=== PATIENT | female | born 1940 | race Caucasian/White ===

== ENCOUNTER → 2016-06-07 | Outpatient (CLI) | payer OTHER, MEDICARE ==
[~2016-06-07] MED LIST: ALBU1AER9 INH; ASPEC325 PO; CLB/200 PO; DOCU100C PO; FLOVENT INHALER INH; FRRG PO; GLUC500C4 PO; LINIGEL19 TOP; LORA0.5T12 PO; LOSA100T33 PO; MRLP17X PO; OMEGCAP2 PO; [UNRECOGNIZED DRUG - CODE] TOP
[2016-06-07 14:23] LABS: BLOOD UREA NITROGEN 19 mg/dl (7-18); BUN/CREATININE RATIO 21.6 (10-20); CALCIUM 9.1 mg/dl (8.5-10.1); CARBON DIOXIDE 30 mmol/L (21-32); CHLORIDE 99 mmol/L (98-107); CREATININE 0.86 mg/dl (0.60-1.20); GLUCOSE 102 mg/dl (70-99); POTASSIUM 3.9 mmol/L (3.5-5.1); SODIUM 133 mmol/L (136-145); TRIGLYCERIDES 122 mg/dl (0-150); VERY LOW DENSITY LIPOPROT CALC 24 mg/dl
[2016-06-07 14:27] LABS: CHOLESTEROL 251 mg/dl (0-200); CHOLESTEROL/HDL RATIO 2.9; HDL CHOLESTEROL 87 mg/dl; LDL CHOLESTEROL CALCULATED 140 mg/dl
== END | disposition home or self-care (01) ==
LOC: C.LABPVFM 08:26
PROVIDERS: ATTEND Nurse Practitioner
DX: E78.00 Pure hypercholesterolemia, unspecified (principal); I10 Essential (primary) hypertension

== ENCOUNTER → 2016-09-28 | Outpatient (CLI) | payer OTHER, MEDICARE ==
[~2016-09-28] MED LIST changes: +LOSA100T26 PO; -LOSA100T33 PO
--- NOTE | 2016-09-28 15:53 | DIAGNOSTIC IMAGING REPORT ---
STERNUM MIN 2 VIEWS CLINICAL HISTORY: 75 years-old Female presenting with STERNAL PAIN at xiphoid, no trauma, sensation of enlarging. TECHNIQUE: Frontal and oblique views of the sternum were obtained. COMPARISON: Correlation made to plain radiographs of the chest from 01/17/2016. FINDINGS: Sternomanubrial and sternoxiphoid articulations normal. No evidence of osseous destruction. No evidence of fracture. No gross soft tissue abnormality allowing for technique. Atherosclerosis of aortic arch. Grossly clear lungs and pleural spaces. IMPRESSION: No gross abnormality of the sternum. If there is clinical concern for a superficial lesion, ultrasound could be considered for better evaluation of the soft tissues. Electronically signed by: Raymond Wall M.D. 09/28/2016 3:51 PM Dictated Date/Time: 09/28/2016 3:49 PM
== END ==
LOC: C.LABPVFM 15:24
PROVIDERS: ATTEND Nurse Practitioner
DX: R07.89 Other chest pain (principal)

== ENCOUNTER → 2017-01-11 | Outpatient (CLI) | payer OTHER, MEDICARE ==
[~2017-01-11] MED LIST changes: -LOSA100T26 PO; +LOSA100T33 PO
[2017-01-11 18:25] LABS: BLOOD UREA NITROGEN 25 mg/dl (7-18); BUN/CREATININE RATIO 24.9 (10-20); CALCIUM 8.9 mg/dl (8.5-10.1); CARBON DIOXIDE 30 mmol/L (21-32); CHLORIDE 94 mmol/L (98-107); GLUCOSE 115 mg/dl (70-99); POTASSIUM 3.8 mmol/L (3.5-5.1); SODIUM 131 mmol/L (136-145)
== END | disposition home or self-care (01) ==
LOC: C.LABPVFM 13:43
PROVIDERS: ATTEND Nurse Practitioner Family
DX: Z01.818 Encounter for other preprocedural examination (principal)

== ENCOUNTER → 2017-06-24 | Outpatient (CLI) | payer OTHER, MEDICARE ==
--- NOTE | 2017-06-24 13:20 | DIAGNOSTIC IMAGING REPORT ---
PARASTERNAL SOFT TISSUE ULTRASOUND CLINICAL HISTORY: M89.9 Mass of sternum [id number] COMPARISON STUDY: Conventional radiographic study dated 09/28/2016 FINDINGS: There is a 5 mm intradermal cyst within the anterior soft tissues at the midsternal level. This likely represents a sebaceous cyst. No additional soft tissue masses were visualized. If there is clinical concern over the presence of an osseous lesion, a CT scan would be recommended in follow-up. IMPRESSION: 5 mm midline intradermal cyst at the mid sternal level. This likely represents a sebaceous cyst. Electronically signed by: Adi Enriquez M.D. 06/24/2017 1:18 PM Dictated Date/Time: 06/24/2017 1:15 PM
== END | disposition home or self-care (01) ==
LOC: C.ULTR 12:50
PROVIDERS: ATTEND Nurse Practitioner
DX: M89.9 Disorder of bone, unspecified (principal)

== ENCOUNTER 2021-06-04 16:36 | Inpatient (IN) ==
[2021-06-04] MEDS ORDERED: fentaNYL citrate 100 MCG/2 ML VIAL IV STA (16:42)
[2021-06-04] MEDS ORDERED: SODIUM CHLORIDE 0.9% 1000ML 500 ML IV ONE (16:42)
[2021-06-04] MEDS ORDERED: ONDANSETRON INJ 2 MG/ML 2 ML VIAL IV STA ×2 (16:42→19:09)
--- NOTE | 2021-06-04 16:45 | Emergency Department Note ---
Impression & Plan Small bowel obstruction, Hypertensive urgency ED Provider Note Name: HORACE MARTIN Age: 80 Sex: F Arrives Via: Ambulance Informant: Patient, EMS, family ED Provider: Ian George MD Chief Complaint: Abdominal pain Impression: As per impressions above Medical Decision Making: Is an 80-year-old female with a history of hypertension, dyslipidemia, type 2 diabetes arrives for evaluation of sudden onset epigastric pain with some nausea. On evaluation she has some tenderness palpation of the epigastrium and some mild diffuse tenderness palpation. EKG is unremarkable and she was given small dose of fentanyl with improvement in her pain. She was sent for CT which reveals a small bowel obstruction concerning for possible closed-loop obstruction. I discussed the findings with general surgery who will monitor her but asked that hospitalist get involved. Patient was discussed with the hospitalist service will take over management. I did give a dose of labetalol for her persistent hypertensive situation despite pain control with several rounds of narcotics. She was given some Ativan prior to NG tube for comfort. I will note I was giving her small doses of narcotics given she states she gets severely nauseous from them in the past and did get somewhat nauseous after the third dose of medicines. Patient does not have peritonitis and she is not in extremis. Her vital signs are somewhat hypertensive but she is not tachycardic. White count is normal at this time. There is no clear evidence of ischemia currently. Hospitalists and evaluate further Prior Medical Record and Triage/Nursing Notes reviewed by Me Additional history obtained from chart & family Differentials:Cholecystitis, pancreatitis, aortic dissection/rupture, ACS, esophageal issue, gastritis, bowel obstruction, ischemic gut, perforation, d iverticulitis, amongst other pathology considered. Vital Signs: reviewed and remarkable for hypertension Interventions: Fentanyl IV, Dilaudid 0.5 mg IV x2, Ativan 0.5 mg IV, Zofran 4 mg IV, Labs:Reviewed and remarkable for no significant abnormalities Imaging:CT abdomen pelvis read by radiology reveals small bowel obstruction concern for closed-loop obstruction KUB read by radiologist reveals NG tube into the stomach EKG:Per My Interpretation: Indication epigastric pain: NSR 73 bpm, qtc 429. No Ectopy. No Ischemia. Compared to EKG , no significant changes. Cardiac/Tele Monitoring: Cardiac Monitoring: An Order was placed for continuous cardiac monitoring. The monitor shows a rate of 70 with a normal sinus rhythm. Consults:Dr Rj Boyd, Dr Glenn OLSON Hospitalist Plan: Disposition:Hospitalization. Condition: Good History of Present Illness:80-year-old female arrives for evaluation abdominal pain. Patient notes she developed sudden onset epigastric abdominal pain around 1230 this afternoon. Pain radiates slightly up to the middle of her chest. Associated with some mild nausea. She denies any falls, trauma, injuries. She denies any current chest pain or shortness of breath. She has no radiation of pain to the lower abdomen or to her back. She has noticed that history of similar symptoms. This occurred slightly after eating lunch. She had no medications prior to arrival. Movement seems to make it worse and rest seems to make it better. She is on no recent antibiotics. She has a history of a total abdominal hysterectomy as far she knows she still has her gallbladder and her appendix. He is on no blood thinners. She does note a history of a head bleed about 7 or 8 months ago due to hypertension for which she was in [facility] for short amount of time. ROS: See above HPI for pertinent positives & negatives. A total of 10 systems reviewed and were otherwise negative. Past Medical History:See Below Past Surgical History:See Below Family History:See Below Social History:See Below Home Medications:See Below Allergies:Adhesive, latex, lisinopril Vitals:Blood Pressure: 188/97, Pulse 74, RR 15, T 36.8C, O2 97% on RA Physical Exam: GENERAL: Patient is uncomfortable appearing and in moderate distress. EYES: No scleral icterus, unremarkable pupils. ENT: Mucous membranes moist, no nasal congestion. NECK: No masses appreciated, nomeningismus, trachea is midline. RESPIRATORY: No dyspnea. Clear to auscultation and equal bilaterally. No wheeze, no rhonchi. CARDIOVASCULAR: Regular rate and rhythm.No murmurs, rubs, gallops appreciated. GASTROINTESTINAL: Mild epigastric tenderness palpation with some mild diffuse abdominal tenderness to palpation. Normal bowel sounds no masses appreciated. BACK: No midline tenderness, no CVA tenderness EXTREMITIES: Normal motion all extremities, no cyanosis, no edema. NEUROLOGIC: Alert and oriented, no acute motor or sensory deficits, no focal weakness, cranial nerves grossly intact. SKIN: No rash, no jaundice, no diaphoresis. PSYCH: Appropriate GCS: 15 ED Course: Times/Reassessments: Patient gradually improving though still can having some diffuse upper abdominal discomfort. NG tube placed with over 500 mL output. Persistent hypertensive despite pain was improving thus labetalol given. Ian George MD Past Med/Surg History Medical History Asthma Diabetes History of basal cell carcinoma History of melanoma History of squamous cell carcinoma Hypertension Left knee DJD Osteoarthritis Surgical History History of basal cell carcinoma (BCC) excision History of colonoscopy History of melanoma excision History of right knee joint replacement History of squamous cell carcinoma excision History of tonsillectomy History of total abdominal hysterectomy and bilateral salpingo-oophorectomy History of tubal ligation Status post right knee replacement Family History Father Prostate cancer Other No family history of adverse response to anesthesia Denies family history of Ovarian cancer Diabetes Dyslipidemia Myocardial infarction Breast cancer COPD (chronic obstructive pulmonary disease) Colorectal cancer Social History Smoking Status: Never smoker Second Hand Exposure: No; Hx Alcohol Use: No Hx Substance Use: No Preferred Language: Thai Communication Ability: Effective Hearing Ability: Normal Supercalender Operator Required: No Beliefs That Will Affect Care: None marital status: Current Living Situation: Spouse current occupational status: retired Feels Safe at Home: Yes Childhood Exposure to Second-Hand Smoke: Yes caffeine: Yes during the past year weight has: remained stable Dental Care, Regularly: Yes Seatbelt Use: always Sunscreen Use: Yes Assistive Devices: Walker Allergies Allergies Allergy/AdvReac Type Severity Reaction Status Date / Time adhesive Allergy Unknown rash, Verified 06/04/21 17:23 redness latex Allergy Unknown skin Verified 06/04/21 17:23 redness lisinopril AdvReac Unknown cough Verified 06/04/21 17:23 Home Meds Home Medications Medication Instructions Recorded Confirmed docusate sodium 100 mg capsule 100 mg PO DAILY 12/22/19 06/04/21 (Stool Softener) polyethylene glycol 3350 17 17 g PO HS PRN 12/22/19 06/04/21 gram/dose oral powder (Miralax) metformin 500 mg tablet 500 mg PO BID 01/19/21 06/04/21 amlodipine 5 mg tablet 5 mg PO QAM 06/04/21 06/04/21 gabapentin 100 mg capsule 100 mg PO QAM 06/04/21 06/04/21 losartan 50 mg-hydrochlorothiazide 1 tab PO BID 06/04/21 06/04/21 12.5 mg tablet metoprolol succinate 25 mg 25 mg PO QAM 06/04/21 06/04/21 tablet,extended release 24 hr Previous Rx's Medication Instructions Recorded amoxicillin 500 mg tablet 2,000 mg PO ONCE #4 tab 05/16/20 trazodone 50 mg tablet 25 mg PO HS #30 tab 06/09/20 meloxicam 15 mg tablet 15 mg PO QAM #90 tab 11/28/20 albuterol sulfate 90 mcg/actuation 2 puff INH Q6H PRN #8 gm 01/06/21 aerosol inhaler (ProAir HFA) fluticasone propionate 110 1 puff INH BID PRN #12 gm 01/06/21 mcg/actuation HFA aerosol inhaler (Flovent HFA) blood sugar diagnostic (OneTouch #100 ea 01/12/21 Ultra Test) blood-glucose meter (OneTouch #1 ea 01/12/21 Verio Meter) lancets (OneTouch UltraSoft #100 ea 01/12/21 Lancets) nitrofurantoin 100 mg PO BID #14 cap 01/12/21 monohydrate/macrocrystals 100 mg capsule (Macrobid) Results & Data (ED) Vital Signs Vital Signs - 24 hr 06/04/21 16:40 06/04/21 18:01 06/04/21 18:30 Temperature 36.8 C Temperature Source Oral Pulse Rate 77 86 74 Respiratory Rate 17 18 15 Respiratory Effort / Characteristics Non-Labored Spontaneous Respiratory Depth Normal Respiratory Pattern Regular Blood Pressure 216/100 H 212/97 H 188/97 H Blood Pressure Mean 138 135 127 Blood Pressure Position Lying Pulse Oximetry 100 98 97 Oxygen Delivery Method Room Air Sepsis Recent Fever Within 48 Hours No Sepsis New/Unexplained Change in Mental Status No Sepsis Action Taken by Nursing No Action Required Laboratory Data Result diagrams: 06/04/21 16:52 06/04/21 16:52 Lab Results 0406/04/21 06/04/21 Range/Units 16:52 16:52 17:04 WBC 5.17 (4.8-10.8) K/uL RBC 4.43 (4.2-5.4) M/uL Hgb 14.3 (12.0-16.0) g/dL POC Hgb 14.6 (12.0-16.0) g/dl Hct 41.8 (37-47) % POC Hct 43 (37-47) % MCV 94.4 (80-100) fL MCH 32.3 (25-34) pg MCHC 34.2 (32-36) g/dL RDW Std Deviation 43.5 (36.4-46.3) fL RDW Coeff of Belkis 12.6 (11.5-14.5) % Plt Count 382 (130-400) K/uL MPV 8.9 (7.4-10.4) fL Immature Gran % (Auto) 0.2 % Neut % (Auto) 67.1 % Lymph % (Auto) 23.2 % [place] % (Auto) 8.9 % Eos % (Auto) 0.2 % Baso % (Auto) 0.4 % Neut # (Auto) 3.47 (1.4-6.5) K/uL Lymph # (Auto) 1.20 (1.2-3.4) K/uL [place] # (Auto) 0.46 (0.11-0.59) K/uL Eos # (Auto) 0.01 (0-0.5) K/uL Baso # (Auto) 0.02 (0-0.2) K/uL Immature Gran # (Auto) 0.01 (0.00-0.02) K/uL POC Sodium 136 (135-144) mmol/L Sodium 136 (136-145) mmol/L POC Potassium 3.6 (3.3-5.0) mmol/L Potassium 3.6 (3.5-5.1) mmol/L POC Chloride 95 L (101-112) mmol/L Chloride 95 L (98-107) mmol/L Carbon Dioxide 31 (21-32) mmol/L POC Total CO2 30 (24-31) mmol/L Anion Gap 10 (3-11) POC Anion Gap 16.0 (16-25) mmol/L POC BUN 19 H (7-18) mg/dl BUN 17 (6-23) mg/dl Creatinine 0.77 (0.6-1.2) mg/dl POC Creatinine 0.7 (0.6-1.3) mg/dl Est Cr Clr Drug Dosing 48.4 ml/min Est GFR ( Amer) 83.3 ml/min Est GFR (Non-Af Amer) 71.9 ml/min BUN/Creatinine Ratio 22.1 H (10-20) Glucose 161 H (70-99(Fasting)) mg/dl POC Glucose (other) 165 H (70-99) mg/dl Calcium 10.7 H (8.5-10.1) mg/dl POC Ioniz Calcium Franko 1.28 (1.12-1.32) mmol/l Total Bilirubin 0.4 (0.2-1.0) mg/dl Direct Bilirubin 0.1 (0-0.2) mg/dl AST 15 (13-39) U/L ALT 13 (7-52) U/L Alkaline Phosphatase 98 (34-104) U/L Troponin I High Sens 4.4 (0-14) pg/ml Total Protein 8.0 (6.0-8.3) gm/dl Albumin 4.7 (3.4-5.0) gm/dl Lipase 19 (11-82) U/L SARS-CoV-2, RNA, NAAT (NEGATIVE) 06/04/21 Range/Units 18:43 WBC (4.8-10.8) K/uL RBC (4.2-5.4) M/uL Hgb (12.0-16.0) g/dL POC Hgb (12.0-16.0) g/dl Hct (37-47) % POC Hct (37-47) % MCV (80-100) fL MCH (25-34) pg MCHC (32-36) g/dL RDW Std Deviation (36.4-46.3) fL RDW Coeff of Belkis (11.5-14.5) % Plt Count (130-400) K/uL MPV (7.4-10.4) fL Immature Gran % (Auto) % Neut % (Auto) % Lymph % (Auto) % [place] % (Auto) % Eos % (Auto) % Baso % (Auto) % Neut # (Auto) (1.4-6.5) K/uL Lymph # (Auto) (1.2-3.4) K/uL [place] # (Auto) (0.11-0.59) K/uL Eos # (Auto) (0-0.5) K/uL Baso # (Auto) (0-0.2) K/uL Immature Gran # (Auto) (0.00-0.02) K/uL POC Sodium (135-144) mmol/L Sodium (136-145) mmol/L POC Potassium (3.3-5.0) mmol/L Potassium (3.5-5.1) mmol/L POC Chloride (101-112) mmol/L Chloride (98-107) mmol/L Carbon Dioxide (21-32) mmol/L POC Total CO2 (24-31) mmol/L Anion Gap (3-11) POC Anion Gap (16-25) mmol/L POC BUN (7-18) mg/dl BUN (6-23) mg/dl Creatinine (0.6-1.2) mg/dl POC Creatinine (0.6-1.3) mg/dl Est Cr Clr Drug Dosing ml/min Est GFR ( Amer) ml/min Est GFR (Non-Af Amer) ml/min BUN/Creatinine Ratio (10-20) Glucose (70-99(Fasting)) mg/dl POC Glucose (other) (70-99) mg/dl Calcium (8.5-10.1) mg/dl POC Ioniz Calcium Franko (1.12-1.32) mmol/l Total Bilirubin (0.2-1.0) mg/dl Direct Bilirubin (0-0.2) mg/dl AST (13-39) U/L ALT (7-52) U/L Alkaline Phosphatase (34-104) U/L Troponin I High Sens (0-14) pg/ml Total Protein (6.0-8.3) gm/dl Albumin (3.4-5.0) gm/dl Lipase (11-82) U/L SARS-CoV-2, RNA, NAAT NEGATIVE (NEGATIVE) Administered Medications Discontinued Medications Fentanyl Citrate (Fentanyl Citrate 100 Mcg/2 Ml Vial) 25 mcg IV NOW STA Stop: 06/04/21 16:43 Last Admin: 06/04/21 17:01 Dose: 25 mcg Documented by: [id number] Hydromorphone HCl (Hydromorphone Inj 0.5 Mg/0.5 Ml Syr) 0.5 mg IV NOW STA Stop: 06/04/21 19:00 Last Admin: 06/04/21 19:02 Dose: 0.5 mg Documented by: [id number] Sodium Chloride (Nss 1000ml) 500 mls @ 999 mls/hr IV .Q31M ONE Stop: 06/04/21 17:12 Last Infusion: 06/04/21 17:38 Dose: 0 mls/hr Documented by: [id number] Admin: 06/04/21 17:05 Dose: 999 mls/hr Documented by: [id number] Ioversol (Optiray 320 100ml) 94 ml IV ONCE ONE Stop: 06/04/21 17:28 Last Admin: 06/04/21 17:30 Dose: 94 ml Documented by: [id number] Labetalol HCl (Labetalol Hcl Iv 5 Mg/Ml 20ml) 10 mg IV NOW STA Stop: 06/04/21 18:11 Last Admin: 06/04/21 18:54 Dose: 10 mg Documented by: [id number] Cosigned by: [id number] Lorazepam (Lorazepam 2 Mg/1 Ml Vial) 0.5 mg IV NOW STA Stop: 06/04/21 17:41 Last Admin: 06/04/21 18:02 Dose: 0.5 mg Documented by: [id number] Ondansetron HCl (Ondansetron Inj 2 Mg/Ml 2 Ml Vial) 4 mg IV NOW STA Stop: 06/04/21 16:43 Last Admin: 06/04/21 17:00 Dose: 4 mg Documented by: [id number] Imaging Data Radiologist's Impression: Abdomen/Pelvis CT 06/04/21 16:42 CT OF THE ABDOMEN AND PELVIS WITH CONTRAST CLINICAL HISTORY: Abdominal pain and nausea. COMPARISON STUDY: None. TECHNIQUE: Following IV administration of 94 mL of Optiray, axial images of the abdomen and pelvis were obtained from the lung bases to the proximal femurs. Images were reviewed in the axial, sagittal, and coronal planes. IV contrast was administered without complication. Automated exposure control was utilized for the study. A dose lowering technique was utilized adhering to the principles of ALARA. CT DOSE: 274.51 mGy.cm FINDINGS: Lung bases are unremarkable. No pneumatosis, free air or portal venous gas is present. Stomach is moderately distended and fluid-filled. Liver, spleen, adrenal glands, kidneys and pancreas are unremarkable. There is no biliary or pancreatic ductal dilatation. No peripancreatic or pericholecystic infiltration is present. There is no hydronephrosis. Moderate plaque of the abdominal aorta is noted. Caliber of the abdominal aorta is normal. Major vasculature is patent. Sigmoid diverticulosis is noted without evidence for acute diverticulitis. The appendix is normal. The mid small bowel is moderately dilated and fluid-filled. Small bowel is decompressed. Note is made of adjacent transition points for several segments of small bowel within the anterior mid abdomen shown on axial image 196 of 371. No small bowel wall thickening is noted. There is mild associated mesenteric stranding. No pneumatosis, free air. Moderate amount stool within the rectum is noted. There is apparent wall thickening of the distal re ctum. This is probably due to underdistention. No suspicious lesion or acute fracture within visualized skeletal structures. IMPRESSION: 1. Findings consistent with a moderate grade small bowel obstruction. Multiple loops of mildly dilated fluid-filled mid small bowel with decompressed distal small bowel. Adjacent transition points for several segments of small bowel. Although not highly suspicious at this time, this configuration could increase risk for a closed loop obstruction and therefore close clinical follow-up is recommended. Moderately distended fluid-filled stomach. Nasogastric tube insertion might be considered. 2. Apparent distal rectal wall thickening. This is likely due to underdistention. A mucosal lesion is considered less likely but cannot be completely excluded. Nonemergent colonoscopy is suggested. ACT 112: Negative or not required by law. Electronically signed by: Flex Alberto M.D. 06/04/2021 5:52 PM Chest X-Ray 06/04/21 18:28 XR chest 1V portable CLINICAL HISTORY: ng tube placement COMPARISON STUDY: Chest radiograph December 11, 2020. FINDINGS: Lung volumes are mildly diminished, unchanged. Lungs are clear. There is no pneumothorax or pleural effusion. Cardiac size is normal. Mediastinal contours are normal. There is no evidence for pulmonary edema. Tip of nasogastric tube is within the body of the stomach. IMPRESSION: Appropriately positioned nasogastric tube. Tip within the body of the stomach. ACT 112: Negative or not required by law. Electronically signed by: Flex Alberto M.D. 06/04/2021 6:56 PM Discharge Plan Visit Data Chief Complaint: Abdominal Pain ED Provider: Ian George Discharge Problem: Small bowel obstruction, Hypertensive urgency Forms Stand Alone Forms: My [facility] [employer] Prescriptions Prescriptions: No Action amoxicillin 500 mg tablet 2,000 mg PO ONCE Qty: 4 RF: 3 trazodone 50 mg tablet 25 mg PO HS Qty: 30 RF: 5 Hold Instructions: not taking meloxicam 15 mg tablet 15 mg PO QAM Qty: 90 RF: 3 Flovent HFA 110 mcg/actuation HFA aerosol inhaler 1 puff INH BID PRN (Reason: wheezing) Qty: 12 RF: 3 albuterol sulfate [ProAir HFA] 90 mcg/actuation HFA aerosol inhaler 2 puff INH Q6H PRN (Reason: shortness of breath or wheezing) Qty: 8 RF: 3 nitrofurantoin monohyd/m-cryst [Macrobid] 100 mg capsule 100 mg PO BID Qty: 14 RF: 0 (DME) OneTouch Ultra Test Strip See Rx Instructions .Route Qty: 100 RF: 5 (DME) blood-glucose meter [OneTouch Verio Meter] Misc See Rx Instructions .Route Qty: 1 RF: 0 (DME) lancets [OneTouch UltraSoft Lancets] Misc See Rx Instructions .Route Qty: 100 RF: 5 metformin 500 mg tablet 500 mg PO BID RF: 0 docusate sodium [Stool Softener] 100 mg Capsule 100 mg PO DAILY RF: 0 polyethylene glycol 3350 [Miralax] 17 gram/dose Powder 17 g PO HS PRN (Reason: Constipation) RF: 0 amlodipine 5 mg tablet 5 mg PO QAM RF: 0 gabapentin 100 mg capsule 100 mg PO QAM RF: 0 metoprolol succinate 25 mg tablet extended release 24 hr 25 mg PO QAM RF: 0 losartan-hydrochlorothiazide 50-12.5 mg tablet 1 tab PO BID RF: 0 Referrals Referrals: Jhony Wolf MD [Primary Care Provider] -
[2021-06-04 17:16] LABS: iSTAT Creatinine 0.7 mg/dl (0.6-1.3); iSTAT Hemoglobin 14.6 g/dl (12.0-16.0); iSTAT Ionized Calcium 1.28 mmol/l (1.12-1.32); iSTAT Potassium 3.6 mmol/L (3.3-5.0)
[2021-06-04 17:18] LABS: Basophils # (auto) 0.02 K/uL (0-0.2); Basophils % (auto) 0.4 %; Eosinophils # (auto) 0.01 K/uL (0-0.5); Eosinophils % (auto) 0.2 %; Hematocrit (blood only) 41.8 % (37-47); Hemoglobin 14.3 g/dL (12.0-16.0); Immature Granulocytes # (auto) 0.01 K/uL (0.00-0.02); Immature Granulocytes % (auto) 0.2 %; Lymphocytes % (auto) 23.2 %; Mean Corpuscular Hemoglobin 32.3 pg (25-34); Mean Corpuscular Hgb Conc 34.2 g/dL (32-36); Mean Corpuscular Volume 94.4 fL (80-100); Mean Platelet Volume 8.9 fL (7.4-10.4); Monocytes # (auto) 0.46 K/uL (0.11-0.59); Monocytes % (auto) 8.9 %; Neutrophils # (auto) 3.47 K/uL (1.4-6.5); Neutrophils % (auto) 67.1 %; Platelet Count 382 K/uL (130-400); RDW Coefficient of Variation 12.6 % (11.5-14.5); RDW Standard Deviation 43.5 fL (36.4-46.3); Red Blood Count 4.43 M/uL (4.2-5.4); White Blood Count 5.17 K/uL (4.8-10.8)
[2021-06-04] MEDS ORDERED: OPTIRAY 320 100ml IV ONE (17:27)
[2021-06-04] MEDS ORDERED: LORazepam 2 MG/1 ML VIAL IV STA (17:40)
[2021-06-04 17:53] LABS: Albumin Level 4.7 gm/dl (3.4-5.0); BUN Creatinine Ratio 22.1 (10-20); Bilirubin Direct 0.1 mg/dl (0-0.2); Bilirubin,Total 0.4 mg/dl (0.2-1.0); Calcium 10.7 mg/dl (8.5-10.1); Creatinine Clr Calc Pharmacy 48.4 ml/min; Est GFR (African American) 83.3 ml/min; Est GFR (Non-African American) 71.9 ml/min; Potassium 3.6 mmol/L (3.5-5.1)
[2021-06-04 17:54] LABS: Troponin I High Sensitivity 4.4 pg/ml (0-14)
--- NOTE | 2021-06-04 17:54 | CT Scan Report ---
CT OF THE ABDOMEN AND PELVIS WITH CONTRAST CLINICAL HISTORY: Abdominal pain and nausea. COMPARISON STUDY: None. TECHNIQUE: Following IV administration of 94 mL of Optiray, axial images of the abdomen and pelvis we re obtained from the lung bases to the proximal femurs. Images were reviewed in the axial, sagittal, and coronal planes. IV contrast was administered without complication. Automated exposure control wa s utilized for the study. A dose lowering technique was utilized adhering to the principles of ALARA . CT DOSE: 274.51 mGy.cm FINDINGS: Lung bases are unremarkable. No pneumatosis, free air or portal venous gas is present. Stom ach is moderately distended and fluid-filled. Liver, spleen, adrenal glands, kidneys and pancreas are unremarkable. There is no biliary or pancreatic ductal dilatation. No peripancreatic or pericholecys tic infiltration is present. There is no hydronephrosis. Moderate plaque of the abdominal aorta is no jose. Caliber of the abdominal aorta is normal. Major vasculature is patent. Sigmoid diverticulosis is noted without evidence for acute diverticulitis. The appendix is normal. The mid small bowel is mode rately dilated and fluid-filled. Small bowel is decompressed. Note is made of adjacent transition poi nts for several segments of small bowel within the anterior mid abdomen shown on axial image 196 of 3 71. No small bowel wall thickening is noted. There is mild associated mesenteric stranding. No pneuma tosis, free air. Moderate amount stool within the rectum is noted. There is apparent wall thickening of the distal rectum. This is probably due to underdistention. No suspicious lesion or acute fracture within visualized skeletal structures. IMPRESSION: 1. Findings consistent with a moderate grade small bowel obstruction. Multiple loops of mildly dilate d fluid-filled mid small bowel with decompressed distal small bowel. Adjacent transition points for s everal segments of small bowel. Although not highly suspicious at this time, this configuration could increase risk for a closed loop obstruction and therefore close clinical follow-up is recommended. M oderately distended fluid-filled stomach. Nasogastric tube insertion might be considered. 2. Apparent distal rectal wall thickening. This is likely due to underdistention. A mucosal lesion is considered less likely but cannot be completely excluded. Nonemergent colonoscopy is suggested. ACT 112: Negative or not required by law. Electronically signed by: Flex Alberto M.D. 06/04/2021 5:52 PM
[2021-06-04] MEDS ORDERED: LABETALOL HCL IV 5 MG/ML 20ML IV STA (18:10)
--- NOTE | 2021-06-04 18:57 | XRay Report ---
XR chest 1V portable CLINICAL HISTORY: ng tube placement COMPARISON STUDY: Chest radiograph December 11, 2020. FINDINGS: Lung volumes are mildly diminished, unchanged. Lungs are clear. There is no pneumothorax or pleural effusion. Cardiac size is normal. Mediastinal contours are normal. There is no evidence for pulmonary edema. Tip of nasogastric tube is within the body of the stomach. IMPRESSION: Appropriately positioned nasogastric tube. Tip within the body of the stomach. ACT 112: Negative or not required by law. Electronically signed by: Flex Alberto M.D. 06/04/2021 6:56 PM
[2021-06-04] MEDS ORDERED: HYDROmorphone INJ 0.5 MG/0.5 ML SYR IV STA (18:59)
--- NOTE | 2021-06-04 19:33 | History & Physical Report ---
Date of Service June 04, 2021 Assessment & Plan (1) Small bowel obstruction: Plan: SBO obstruction with past abdominal surgery being hysterectomy- possibly related to adhesions - Continue with NGT to LIWS - IV hydration with D5LR 110 ml/hr - Pain control - NPO - KUB daily - consider contrasted study within 24-48 hours with follow through (2) Diabetes mellitus: Plan: Hold Metformin- transition to insulin sliding scale without carb coverage while NPO (3) Hypertension: Plan: Will adjust her PO Meds to IV as able with SBP <180, <90 - Metoprolol 5mg IV q6 hours with hold parameters - Hydralazine 5 mg IV q3 hrs prn - can adjust as warranted (4) Hypercholesterolemia: Plan: Hold statin (5) Asthma: Plan: Continue SONAM (6) Anxiety: Plan: Follow may have PRN (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 - Arthritis as well - Will need to hold her gabapentin, meloxicam, and trazodone - Follow for any withdraw from above History of Present Illness Primary Care Provider: Jhony Wolf MD 80 YO female with medical history of: HLD, HTN, DMII, Arthralgia, 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 Patient comes to the EMD today via EMS for acute onset of abdominal pain followed by nausea and vomiting. The onset of the pain was right after lunch per the at around 1300 to worsen. He states that she had abdominal pain prior to eating noting around 1230. The patient ate breakfast this morning without any pain or n/v, she then went to [employer] and came home and had pizza and salad. In the EMD she had ano ther episode of vomiting. She had routine labs performed to include HScTNI, abdomen CT scan and chest Xray. Her abdominal CT scan was notable for reported moderate grade SBO, dilated loops of fluid filled bowel and decompressed distal small bowel. Also possibility of closed loop obstruction and distended stomach. Surgery was consulted by the EMD and was present in room with my evaluation. The patient had an NGT placed to suction and Radiologically confirmed. Hospitalist was consulted for admission. Patient was somnolent for exam following Dilaudid administration and Ativan administration for NGT placement and abdominal pain. She was placed on oxygen. She reportedly has no major neurological deficits but remains with left sided visual deficits from her stroke in 12/01. Her abdomen is soft but tender mostly on the left side. She will be placed in the PCU to continue to monitor her respiratory status with sedation as well as she is NPO and will reqiure IV medications for BP control and continuation of her beta-blockade as well. COVID test admisison is : NEGATIVE Allergies Allergy/AdvReac Type Severity Reaction Status Date / Time adhesive Allergy Unknown rash, Verified 06/04/21 17:23 redness latex Allergy Unknown skin Verified 06/04/21 17:23 redness lisinopril AdvReac Unknown cough Verified 06/04/21 17:23 Home Medications Medication Instructions Recorded Confirmed Type docusate sodium 100 mg capsule 100 mg PO DAILY 12/22/19 06/04/21 History (Stool Softener) polyethylene glycol 3350 17 17 g PO HS PRN 12/22/19 06/04/21 History gram/dose oral powder (Miralax) amoxicillin 500 mg tablet 2,000 mg PO ONCE #4 tab 05/16/20 06/04/21 Rx trazodone 50 mg tablet 25 mg PO HS #30 tab 06/09/20 06/04/21 Rx meloxicam 15 mg tablet 15 mg PO QAM #90 tab 11/28/20 06/04/21 Rx albuterol sulfate 90 mcg/actuation 2 puff INH Q6H PRN #8 gm 01/06/21 06/04/21 Rx aerosol inhaler (ProAir HFA) fluticasone propionate 110 1 puff INH BID PRN #12 gm 01/06/21 06/04/21 Rx mcg/actuation HFA aerosol inhaler (Flovent HFA) blood sugar diagnostic (HypemarksTouch #100 ea 01/12/21 03/29/21 Rx Ultra Test) blood-glucose meter (HypemarksTouch #1 ea 01/12/21 03/29/21 Rx Verio Meter) lancets (HypemarksTouch UltraSoft #100 ea 01/12/21 03/29/21 Rx Lancets) nitrofurantoin 100 mg PO BID #14 cap 01/12/21 06/04/21 Rx monohydrate/macrocrystals 100 mg capsule (Macrobid) metformin 500 mg tablet 500 mg PO BID 01/19/21 06/04/21 History amlodipine 5 mg tablet 5 mg PO QAM 06/04/21 06/04/21 History gabapentin 100 mg capsule 100 mg PO QAM 06/04/21 06/04/21 History losartan 50 mg-hydrochlorothiazide 1 tab PO BID 06/04/21 06/04/21 History 12.5 mg tablet metoprolol succinate 25 mg 25 mg PO QAM 06/04/21 06/04/21 History tablet,extended release 24 hr Past Med/Surg History Medical History Asthma stable Diabetes PCP has been monitoring. A1C has crept up to 6.8%, no medication yet, just dietary modifications. History of basal cell carcinoma History of melanoma History of squamous cell carcinoma Hypertension Left knee DJD Osteoarthritis Surgical History History of basal cell carcinoma (BCC) excision History of colonoscopy History of melanoma excision History of right knee joint replacement Right TKA: 09/21/14: SAB x1 attempt at L3/L4 + PNB at [facility] History of squamous cell carcinoma excision History of tonsillectomy History of total abdominal hysterectomy and bilateral salpingo-oophorectomy History of tubal ligation Status post right knee replacement Family History Father Prostate cancer Other No family history of adverse response to anesthesia Denies family history of Ovarian cancer Diabetes Dyslipidemia Myocardial infarction Breast cancer COPD (chronic obstructive pulmonary disease) Colorectal cancer Social History Smoking Status: Never smoker Second Hand Exposure: No; Do You Dip or Chew Tobacco: No; Tobacco Cessation Education Requested by Patient: No Hx Alcohol Use: No Hx Substance Use: No Preferred Language: [place] Communication Ability: Effective Hearing Ability: Normal Generator Worker Required: No Beliefs That Will Affect Care: None marital status: Current Living Situation: Spouse current occupational status: retired Other Information That Helps Us Care for You: No Feels Safe at Home: Yes Safety Concerns: Feels Safe At This Time Childhood Exposure to Second-Hand Smoke: Yes caffeine: Yes during the past year weight has: remained stable Dental Care, Regularly: Yes Seatbelt Use: always Sunscreen Use: Yes Assistive Devices: Glasses Review of Systems Review of Systems: REVIEW OF SYSTEMS: obtained from family secondary to patient sedation Constitutional: No fever, sweats or chills Eyes: No diplopia, no worsening or blurred vision ENT: normal hearing, no trouble swallowing Respiratory: No cough, sputum, dyspnea at rest or on exertion Cardiovascular: No chest pain, tightness or palpitations Abdomen: (+) pain, nausea, vomiting, NO diarrhea or constipation Musculoskeletal: No joint pain, calf pain, swelling Neurologic: No weakness, numbness/tingling, or balance problems Psychiatric: No anxiety or depression Skin: No rash or itch Physical Exam Physical Exam: PHYSICAL EXAM: General: patient somnolent following pain medication, did arouse much easier at the end of the exam and interview Head: Normocephalic, atraumatic ENT: PERRLA, EOMI, no pharyngeal exudate, mucous membranes moist Neuro: AAO x 3, speech clear and appropriate, strength intact bilaterally 5/5, sensation intact and equal all extremities and dermatomes, no pronator drift Chest: equal rise and fall of the chest, no accessory muscle use, no heaves or thrills, Clear to auscultation, on room air, Cardiac: Regular rate and rhythm, telemetry reviewed, skin warm dry, cap refill <3 seconds, peripheral pulses +2 no JVD, no murmur, no JVD, trace lower extremity edema GI: hypoactive bowel sounds throughout, NGT with 500ml of orange bilious drainage, soft but remains tender to deep palpation, without rebound or guarding : Spontaneously voiding, no pain, no CVA tenderness, Extremities: Normal inspection, no peripheral edema or erythema, calfs nontender to palpation Skin: no rash or erythema Results & Data Results & Data ([facility]) Vital Signs (Past 12 Hours) Vital Signs Temp Pulse Pulse Resp BP BP Pulse Ox 06/04/21 19:28 58 L 18 124/70 06/04/21 19:18 88 L 06/04/21 18:30 74 15 188/97 H 97 06/04/21 18:01 86 18 212/97 H 98 06/04/21 16:40 36.8 C 77 17 216/100 H 100 Laboratory Results Abnormal lab results 06/04/21 06/04/21 Range/Units 16:52 17:04 POC Chloride 95 L (101-112) mmol/L Chloride 95 L (98-107) mmol/L POC BUN 19 H (7-18) mg/dl BUN/Creatinine Ratio 22.1 H (10-20) Glucose 161 H (70-99(Fasting)) mg/dl POC Glucose (other) 165 H (70-99) mg/dl Calcium 10.7 H (8.5-10.1) mg/dl Diagnostic Findings Abdomen/Pelvis CT 06/04/21 16:42 CT OF THE ABDOMEN AND PELVIS WITH CONTRAST CLINICAL HISTORY: Abdominal pain and nausea. COMPARISON STUDY: None. TECHNIQUE: Following IV administration of 94 mL of Optiray, axial images of the abdomen and pelvis were obtained from the lung bases to the proximal femurs. Images were reviewed in the axial, sagittal, and coronal planes. IV contrast was administered without complication. Automated exposure control was utilized for the study. A dose lowering technique was utilized adhering to the principles of ALARA. CT DOSE: 274.51 mGy.cm FINDINGS: Lung bases are unremarkable. No pneumatosis, free air or portal venous gas is present. Stomach is moderately distended and fluid-filled. Liver, spleen, adrenal glands, kidneys and pancreas are unremarkable. There is no biliary or pancreatic ductal dilatation. No peripancreatic or pericholecystic infiltration is present. There is no hydronephrosis. Moderate plaque of the abdominal aorta is noted. Caliber of the abdominal aorta is normal. Major vasculature is patent. Sigmoid diverticulosis is noted without evidence for acute diverticulitis. The appendix is normal. The mid small bowel is moderately dilated and fluid-filled. Small bowel is decompressed. Note is made of adjacent transition points for several segments of small bowel within the anterior mid abdomen shown on axial image 196 of 371. No small bowel wall thickening is noted. There is mild associated mesenteric stranding. No pneumatosis, free air. Moderate amount stool within the rectum is noted. There is apparent wall thickening of the distal rectum. This is probably due to underdistention. No suspicious lesion or acute fracture within visualized skeletal structures. IMPRESSION: 1. Findings consistent with a moderate grade small bowel obstruction. Multiple loops of mildly dilated fluid-filled mid small bowel with decompressed distal small bowel. Adjacent transition points for several segments of small bowel. Although not highly suspicious at this time, this configuration could increase risk for a closed loop obstruction and therefore close clinical follow-up is recommended. Moderately distended fluid-filled stomach. Nasogastric tube insertion might be considered. 2. Apparent distal rectal wall thickening. This is likely due to underdistenti on. A mucosal lesion is considered less likely but cannot be completely excluded. Nonemergent colonoscopy is suggested. ACT 112: Negative or not required by law. Electronically signed by: Flex Alberto M.D. 06/04/2021 5:52 PM Chest X-Ray 06/04/21 18:28 XR chest 1V portable CLINICAL HISTORY: ng tube placement COMPARISON STUDY: Chest radiograph December 11, 2020. FINDINGS: Lung volumes are mildly diminished, unchanged. Lungs are clear. There is no pneumothorax or pleural effusion. Cardiac size is normal. Mediastinal contours are normal. There is no evidence for pulmonary edema. Tip of nasogastric tube is within the body of the stomach. IMPRESSION: Appropriately positioned nasogastric tube. Tip within the body of the stomach. ACT 112: Negative or not required by law. Electronically signed by: Flex Alberto M.D. 06/04/2021 6:56 PM Medications Administered Home Medications docusate sodium 100 mg capsule (Stool Softener) 100 mg PO DAILY 12/22/19 [History Confirmed 06/04/21] polyethylene glycol 3350 17 gram/dose oral powder (Miralax) 17 g PO HS PRN 12/22/19 [History Confirmed 06/04/21] amoxicillin 500 mg tablet 2,000 mg PO ONCE #4 tab 05/16/20 [Rx Confirmed 06/04/21] trazodone 50 mg tablet 25 mg PO HS #30 tab 06/09/20 [Rx Confirmed 06/04/21] meloxicam 15 mg tablet 15 mg PO QAM #90 tab 11/28/20 [Rx Confirmed 06/04/21] albuterol sulfate 90 mcg/actuation aerosol inhaler (ProAir HFA) 2 puff INH Q6H PRN #8 gm 01/06/21 [Rx Confirmed 06/04/21] fluticasone propionate 110 mcg/actuation HFA aerosol inhaler (Flovent HFA) 1 puff INH BID PRN #12 gm 01/06/21 [Rx Confirmed 06/04/21] blood sugar diagnostic (Aktivitouch Ultra Test) #100 ea 01/12/21 [Rx Confirmed 03/14 08/02] blood-glucose meter (HypemarksTouch Verio Meter) #1 ea 12/02/21 [Rx Confirmed 03/29/21] lancets (OneTouch UltraSoft Lancets) #100 ea 01/12/21 [Rx Confirmed 03/29/21] nitrofurantoin monohydrate/macrocrystals 100 mg capsule (Macrobid) 100 mg PO BID #14 cap 01/12/21 [Rx Confirmed 06/04/21] metformin 500 mg tablet 500 mg PO BID 01/19/21 [History Confirmed 06/04/21] amlodipine 5 mg tablet 5 mg PO QAM 06/04/21 [History Confirmed 06/04/21] gabapentin 100 mg capsule 100 mg PO QAM 06/04/21 [History Confirmed 06/04/21] losartan 50 mg-hydrochlorothiazide 12.5 mg tablet 1 tab PO BID 06/04/21 [History Confirmed 06/04/21] metoprolol succinate 25 mg tablet,extended release 24 hr 25 mg PO QAM 06/04/21 [History Confirmed 06/04/21] Discontinued Medications Fentanyl Citrate (Fentanyl Citrate 100 Mcg/2 Ml Vial) 25 mcg IV NOW STA Stop: 06/04/21 16:43 Last Admin: 06/04/21 17:01 Dose: 25 mcg Documented by: [id number] Hydromorphone HCl (Hydromorphone Inj 0.5 Mg/0.5 Ml Syr) 0.5 mg IV NOW STA Stop: 06/04/21 19:00 Last Admin: 06/04/21 19:02 Dose: 0.5 mg Documented by: [id number] Sodium Chloride (Nss 1000ml) 500 mls @ 999 mls/hr IV .Q31M ONE Stop: 06/04/21 17:12 Last Infusion: 06/04/21 17:38 Dose: 0 mls/hr Documented by: [id number] Admin: 06/04/21 17:05 Dose: 999 mls/hr Documented by: [id number] Ioversol (Optiray 320 100ml) 94 ml IV ONCE ONE Stop: 06/04/21 17:28 Last Admin: 06/04/21 17:30 Dose: 94 ml Documented by: [id number] Labetalol HCl (Labetalol Hcl Iv 5 Mg/Ml 20ml) 10 mg IV NOW STA Stop: 06/04/21 18:11 Last Admin: 06/04/21 18:54 Dose: 10 mg Documented by: [id number] Cosigned by: [id number] Lorazepam (Lorazepam 2 Mg/1 Ml Vial) 0.5 mg IV NOW STA Stop: 06/04/21 17:41 Last Admin: 06/04/21 18:02 Dose: 0.5 mg Documented by: [id number] Ondansetron HCl (Ondansetron Inj 2 Mg/Ml 2 Ml Vial) 4 mg IV NOW STA Stop: 06/04/21 16:43 Last Admin: 06/04/21 17:00 Dose: 4 mg Documented by: [id number] Ondansetron HCl (Ondansetron Inj 2 Mg/Ml 2 Ml Vial) 4 mg IV NOW STA Stop: 06/04/21 19:10 Last Admin: 06/04/21 19:25 Dose: 4 mg Documented by: [id number] ECG Additional Comments: Normal sinus rhythm Possible Left atrial enlargement Borderline ECG When compared with ECG of 11-DEC-2020 15:29, No significant change was found Code Status & VTE Plan Code Status CODE: DNR/DNI VTE: SCDS, Heparin 5000 unit sub q q12 VTE Prophylaxis Plan VTE Prophylaxis will be ordered: Yes Supervising Physician Co-Signing Physician Notes Patient seen and examined, chart reviewed, case discussed with WADE Corrales and agree with his assessment and plan as documented above. In brief, patient is an 80-year-old female with history of hypertension, hyperlipidemia, diabetes, prior hemorrhagic stroke presenting with acute abdominal pain, nausea and vomiting. Patient ate lunch around 1300 then developed the pain shortly after. ER work-up notable for moderate grade small bowel obstruction with dilated loops of fluid-filled bowel and decompressed distal small bowel. Also possibility of closed-loop obstruction and distended stomach. Patient was seen by surgery while in the ER. NG tube was placed to suction with improvement of symptoms. She had approximately 600 mL of liquid output. Patient became hypoxic after receiving pain medication in the ER, improved with supplemental oxygen On physical exam patient appears nontoxic but uncomfortable. Somnolent but arousable, answers questions appropriately participates in exam. Skinwarm, dry, intact, no rashes or lesions HEENTmucous membranes, neck supple Heart+ S1, S2, regular, no murmur/rub/gallops Lungsequal air entry bilaterally, no rales/rhonchi/wheezes Abdomenpositive bowel sounds, diminished, soft, tender with deep palpation without rebound or guarding, NG tube in place to wall suction Extremitieswarm, well-perfused, no clubbing/cyanosis/edema Neurono gross deficits, patient oriented x3 Labs and images reviewed. Lactate = 1.2 Assessment/plan: 80-year-old female presenting with moderate small bowel obstruction as well as concern for closed-loop obstruction with distended stomach. Admit to PCU Continue NG tube to low intermittent wall suction Gentle IV hydration Pain control and antiemetics as needed General surgery consultation appreciated Management of diabetes, hypertension and hyperlipidemia as above PG Care Time/CCT Total # of Minutes Spent Total Time Spent with Patient: Total time spent is greater than 50% in coordination of care (as documented) at patient's floor/unit and/or counseling patient: Coding Level of Care Code 92590 Initial Inpt Care Lvl 3 Diagnoses Small bowel obstruction K56.609 Diabetes mellitus E11.9 Hypertension I10 Hypercholesterolemia E78.00 Asthma J45.909 Anxiety F41.9 Left knee DJD M17.12
--- NOTE | 2021-06-04 19:35 | Surgery Consultation ---
Date of Consultation June 04, 2021 Assessment & Plan (1) Small bowel obstruction: (2) Hypertensive urgency: (3) Diabetes mellitus: 80-year-old woman with a history of hypertension, diabetes, intracranial bleed/stroke, presents with small bowel obstruction. She has had a prior hysterectomy. White blood cell count is normal. She is afebrile. Moderate tenderness diffusely, no peritoneal signs. I discussed with the family the diagnosis of adhesive small bowel obstruction. Most will resolve on their own with NG tube decompression and time/observation. I discussed the fact that if she were to worsen or fail to improve over the course of the next few days, she would need an exploratory laparotomy. For now we will continue NG tube suction, n.p.o. status, observation. The family is in agreement with this plan and all questions have been answered. We will follow along closely. History of Present Illness Requesting Physician: ED physician Attending Physician: ED physician History of Present Illness 81-year-old woman with prior surgical history including open hysterectomy presents with 8 hours of diffuse significant abdominal pain. She ate breakfast and lunch today. She has vomited. She denies fevers or chills. She just received pain medicine and is fairly somnolent at this moment. Her family feels and the rest of the history. She has not had a history of small bowel obstruction in the past. She last had a bowel movement yesterday. She has had to use MiraLAX in the past for bowel movements. She does not have a bowel movement every day. White blood cell count is 5. CT scan demonstrates small bowel obstruction. Allergies Allergy/AdvReac Type Severity Reaction Status Date / Time adhesive Allergy Unknown rash, Verified 06/04/21 17:23 redness latex Allergy Unknown skin Verified 06/04/21 17:23 redness lisinopril AdvReac Unknown cough Verified 06/04/21 17:23 Home Medications Medication Instructions Recorded Confirmed Type docusate sodium 100 mg capsule 100 mg PO DAILY 12/22/19 06/04/21 History (Stool Softener) polyethylene glycol 3350 17 17 g PO HS PRN 12/22/19 06/04/21 History gram/dose oral powder (Miralax) amoxicillin 500 mg tablet 2,000 mg PO ONCE #4 tab 05/16/20 06/04/21 Rx trazodone 50 mg tablet 25 mg PO HS #30 tab 06/09/20 06/04/21 Rx meloxicam 15 mg tablet 15 mg PO QAM #90 tab 11/28/20 06/04/21 Rx albuterol sulfate 90 mcg/actuation 2 puff INH Q6H PRN #8 gm 01/06/21 06/04/21 Rx aerosol inhaler (ProAir HFA) fluticasone propionate 110 1 puff INH BID PRN #12 gm 01/06/21 06/04/21 Rx mcg/actuation HFA aerosol inhaler (Flovent HFA) blood sugar diagnostic (OneTouch #100 ea 01/12/21 03/29/21 Rx Ultra Test) blood-glucose meter (OneTouch #1 ea 01/12/21 03/29/21 Rx Verio Meter) lancets (PhoneTellTouch UltraSoft #100 ea 01/12/21 03/29/21 Rx Lancets) nitrofurantoin 100 mg PO BID #14 cap 01/12/21 06/04/21 Rx monohydrate/macrocrystals 100 mg capsule (Macrobid) metformin 500 mg tablet 500 mg PO BID 01/19/21 06/04/21 History amlodipine 5 mg tablet 5 mg PO QAM 06/04/21 06/04/21 History gabapentin 100 mg capsule 100 mg PO QAM 06/04/21 06/04/21 History losartan 50 mg-hydrochlorothiazide 1 tab PO BID 06/04/21 06/04/21 History 12.5 mg tablet metoprolol succinate 25 mg 25 mg PO QAM 06/04/21 06/04/21 History tablet,extended release 24 hr Patient History Medical History Asthma stable Diabetes PCP has been monitoring. A1C has crept up to 6.8%, no medication yet, just dietary modifications. History of basal cell carcinoma History of melanoma History of squamous cell carcinoma Hypertension Left knee DJD Osteoarthritis Surgical History History of basal cell carcinoma (BCC) excision History of colonoscopy History of melanoma excision History of right knee joint replacement Right TKA: 09/21/14: SAB x1 attempt at L3/L4 + PNB at [facility] History of squamous cell carcinoma excision History of tonsillectomy History of total abdominal hysterectomy and bilateral salpingo-oophorectomy History of tubal ligation Status post right knee replacement Family History Father Prostate cancer Other No family history of adverse response to anesthesia Denies family history of Ovarian cancer Diabetes Dyslipidemia Myocardial infarction Breast cancer COPD (chronic obstructive pulmonary disease) Colorectal cancer Social History Smoking Status: Never smoker Second Hand Exposure: No; Hx Alcohol Use: No Hx Substance Use: No Preferred Language: Somali Communication Ability: Effective Hearing Ability: Normal Dining Room Hostess Required: No Beliefs That Will Affect Care: None marital status: Current Living Situation: Spouse current occupational status: retired Feels Safe at Home: Yes Childhood Exposure to Second-Hand Smoke: Yes caffeine: Yes during the past year weight has: remained stable Dental Care, Regularly: Yes Seatbelt Use: always Sunscreen Use: Yes Assistive Devices: Walker Review of Systems Review of Systems: Unobtainable due to reduced consciousness Physical Exam Constitutional: WD/WN, vitals as above Neck: trachea midline, no thyromegaly Respiratory: normal respiratory effort; no respiratory distress and no labored breathing Cardiovascular: Rate/Rhythm: regular rate and regular rhythm Gastrointestinal (Abdomen): Inspection/Auscultation: abdomen normal to inspection and + abdomen distended (Mild to moderate) Percussion/Palpation: + abdomen tender (Diffusely to deep palpation) and abdomen soft; no guarding and abdomen not rigid Musculoskeletal: Extremities: no cyanosis and no clubbing Skin: no rashes, warm and dry Psychiatric: A+Ox3, euthymic affect Results & Data ([facility]) Vital Signs (Past 12 Hours) Vital Signs Temp Pulse Pulse Resp BP BP Pulse Ox 06/04/21 19:28 58 L 18 124/70 06/04/21 19:18 88 L 06/04/21 18:30 74 15 188/97 H 97 06/04/21 18:01 86 18 212/97 H 98 06/04/21 16:40 36.8 C 77 17 216/100 H 100 Laboratory Results 06/04/21 06/04/21 06/04/21 Range/Units 18:43 17:04 16:52 WBC (4.8-10.8) K/uL RBC (4.2-5.4) M/uL Hgb (12.0-16.0) g/dL POC Hgb 14.6 (12.0-16.0) g/dl Hct (37-47) % POC Hct 43 (37-47) % MCV (80-100) fL MCH (25-34) pg MCHC (32-36) g/dL RDW Std Deviation (36.4-46.3) fL RDW Coeff of Belkis (11.5-14.5) % Plt Count (130-400) K/uL MPV (7.4-10.4) fL Immature Gran % (Auto) % Neut % (Auto) % Lymph % (Auto) % [place] % (Auto) % Eos % (Auto) % Baso % (Auto) % Neut # (Auto) (1.4-6.5) K/uL Lymph # (Auto) (1.2-3.4) K/uL [place] # (Auto) (0.11-0.59) K/uL Eos # (Auto) (0-0.5) K/uL Baso # (Auto) (0-0.2) K/uL Immature Gran # (Auto) (0.00-0.02) K/uL POC Sodium 136 (135-144) mmol/L Sodium 136 (136-145) mmol/L POC Potassium 3.6 (3.3-5.0) mmol/L Potassium 3.6 (3.5-5.1) mmol/L POC Chloride 95 L (101-112) mmol/L Chloride 95 L (98-107) mmol/L Carbon Dioxide 31 (21-32) mmol/L POC Total CO2 30 (24-31) mmol/L Anion Gap 10 (3-11) POC Anion Gap 16.0 (16-25) mmol/L POC BUN 19 H (7-18) mg/dl BUN 17 (6-23) mg/dl Creatinine 0.77 (0.6-1.2) mg/dl POC Creatinine 0.7 (0.6-1.3) mg/dl Est Cr Clr Drug Dosing 48.4 ml/min Est GFR ( Amer) 83.3 ml/min Est GFR (Non-Af Amer) 71.9 ml/min BUN/Creatinine Ratio 22.1 H (10-20) Glucose 161 H (70-99(Fasting)) mg/dl POC Glucose (other) 165 H (70-99) mg/dl Calcium 10.7 H (8.5-10.1) mg/dl POC Ioniz Calcium Franko 1.28 (1.12-1.32) mmol/l Total Bilirubin 0.4 (0.2-1.0) mg/dl Direct Bilirubin 0.1 (0-0.2) mg/dl AST 15 (13-39) U/L ALT 13 (7-52) U/L Alkaline Phosphatase 98 (34-104) U/L Troponin I High Sens 4.4 (0-14) pg/ml Total Protein 8.0 (6.0-8.3) gm/dl Albumin 4.7 (3.4-5.0) gm/dl Lipase 19 (11-82) U/L SARS-CoV-2, RNA, NAAT NEGATIVE (NEGATIVE) 06/04/21 Range/Units 16:52 WBC 5.17 (4.8-10.8) K/uL RBC 4.43 (4.2-5.4) M/uL Hgb 14.3 (12.0-16.0) g/dL POC Hgb (12.0-16.0) g/dl Hct 41.8 (37-47) % POC Hct (37-47) % MCV 94.4 (80-100) fL MCH 32.3 (25-34) pg MCHC 34.2 (32-36) g/dL RDW Std Deviation 43.5 (36.4-46.3) fL RDW Coeff of Belkis 12.6 (11.5-14.5) % Plt Count 382 (130-400) K/uL MPV 8.9 (7.4-10.4) fL Immature Gran % (Auto) 0.2 % Neut % (Auto) 67.1 % Lymph % (Auto) 23.2 % [place] % (Auto) 8.9 % Eos % (Auto) 0.2 % Baso % (Auto) 0.4 % Neut # (Auto) 3.47 (1.4-6.5) K/uL Lymph # (Auto) 1.20 (1.2-3.4) K/uL [place] # (Auto) 0.46 (0.11-0.59) K/uL Eos # (Auto) 0.01 (0-0.5) K/uL Baso # (Auto) 0.02 (0-0.2) K/uL Immature Gran # (Auto) 0.01 (0.00-0.02) K/uL POC Sodium (135-144) mmol/L Sodium (136-145) mmol/L POC Potassium (3.3-5.0) mmol/L Potassium (3.5-5.1) mmol/L POC Chloride (101-112) mmol/L Chloride (98-107) mmol/L Carbon Dioxide (21-32) mmol/L POC Total CO2 (24-31) mmol/L Anion Gap (3-11) POC Anion Gap (16-25) mmol/L POC BUN (7-18) mg/dl BUN (6-23) mg/dl Creatinine (0.6-1.2) mg/dl POC Creatinine (0.6-1.3) mg/dl Est Cr Clr Drug Dosing ml/min Est GFR ( Amer) ml/min Est GFR (Non-Af Amer) ml/min BUN/Creatinine Ratio (10-20) Glucose (70-99(Fasting)) mg/dl POC Glucose (other) (70-99) mg/dl Calcium (8.5-10.1) mg/dl POC Ioniz Calcium Franko (1.12-1.32) mmol/l Total Bilirubin (0.2-1.0) mg/dl Direct Bilirubin (0-0.2) mg/dl AST (13-39) U/L ALT (7-52) U/L Alkaline Phosphatase (34-104) U/L Troponin I High Sens (0-14) pg/ml Total Protein (6.0-8.3) gm/dl Albumin (3.4-5.0) gm/dl Lipase (11-82) U/L SARS-CoV-2, RNA, NAAT (NEGATIVE) Diagnostic Findings CT OF THE ABDOMEN AND PELVIS WITH CONTRAST CLINICAL HISTORY: Abdominal pain and nausea. COMPARISON STUDY: None. TECHNIQUE: Following IV administration of 94 mL of Optiray, axial images of the abdomen and pelvis were obtained from the lung bases to the proximal femurs. Images were reviewed in the axial, sagittal, and coronal planes. IV contrast was administered without complication. Automated exposure control was utilized for the study. A dose lowering technique was utilized adhering to the principles of ALARA. CT DOSE: 274.51 mGy.cm FINDINGS: Lung bases are unremarkable. No pneumatosis, free air or portal venous gas is present. Stomach is moderately distended and fluid-filled. Liver, spleen, adrenal glands, kidneys and pancreas are unremarkable. There is no biliary or pancreatic ductal dilatation. No peripancreatic or pericholecystic infiltration is present. There is no hydronephrosis. Moderate plaque of the abdominal aorta is noted. Caliber of the abdominal aorta is normal. Major vasculature is patent. Sigmoid diverticulosis is noted without evidence for acute diverticulitis. The appendix is normal. The mid small bowel is moderately dilated and fluid-filled. Small bowel is decompressed. Note is made of adjacent transition points for several segments of small bowel within the anterior mid abdomen shown on axial image 196 of 371. No small bowel wall thickening is noted. There is mild associated mesenteric stranding. No pneumatosis, free air. Moderate amount stool within the rectum is noted. There is apparent wall thickening of the distal rectum. This is probably due to underdistention. No suspicious lesion or acute fracture within visualized skeletal structures. IMPRESSION: 1. Findings consistent with a moderate grade small bowel obstruction. Multiple loops of mildly dilated fluid-filled mid small bowel with decompressed distal small bowel. Adjacent transition points for several segments of small bowel. Although not highly suspicious at this time, this configuration could increase risk for a closed loop obstruction and therefore close clinical follow-up is recommended. Moderately distended fluid-filled stomach. Nasogastric tube insertion might be considered. 2. Apparent distal rectal wall thickening. This is likely due to underdistention. A mucosal lesion is considered less likely but cannot be completely excluded. Nonemergent colonoscopy is suggested.
[2021-06-04] MEDS ORDERED: GLUCOSE 40% GEL 15 GM TUBE PO PRN (20:49)
[2021-06-04] MEDS ORDERED: hydrALAZINE HCL 20 MG/ML VIAL IV PRN (20:49)
[2021-06-04] MEDS ORDERED: DEXTROSE 50% 50 ML SYRINGE IV PRN (20:49)
[2021-06-04] MEDS ORDERED: CARBOHYDRATES FOR HYPOGLYCEMIA PO PRN (20:49)
[2021-06-04] MEDS ORDERED: GLUCAGON FOR INJ 1 MG VIAL SQ PRN (20:49)
[2021-06-04] MEDS ORDERED: ONDANSETRON INJ 2 MG/ML 2 ML VIAL IV PRN (20:49)
[2021-06-04] MEDS ORDERED: GLUCOSE 10 TABS/TUBE PO PRN (20:49)
[2021-06-04] MEDS ORDERED: ALBUTEROL HFA 8 GM INHALER INH PRN (20:55)
[2021-06-04] MEDS ORDERED: FLUTICASONE FUROATE 100MCG 14 PUFFS/INHALER INH PRN (20:57)
[2021-06-04] MEDS ORDERED: HEPARIN SOD 5,000 UNIT/0.5 ML VIAL SQ SCH (21:00)
[2021-06-04] MEDS ORDERED: INSULIN ASPART PER UNIT SC SCH (21:00)
[2021-06-04 21:09] LABS: Appearance Urine Clear (Clear); Bacteria Urine Automated Negative (Negative); Bilirubin Urine Negative (Negative); Blood Urine Negative (Negative); Cast Urine Automated 0 /lpf (0-5); Color Urine Yellow; Glucose Urine UA Negative (Negative); Ketones Urine Negative (Negative); Leukocyte Esterase Urine Trace (Negative); Nitrite Urine Negative (Negative); Protein Urine Negative (Negative); RBC Urine Automated 0-4 /hpf (0-4); Specific Gravity Urine 1.028 (1.000-1.030); Urobilinogen Urine Negative (Negative); pH Urine 8.5 (4.5-7.5)
[2021-06-04] MEDS: ACETAMINOPHEN 1,000 MG/100 ML VIAL IV PRN (21:42)
[2021-06-04] MEDS: D5W AND LACTATED RINGERS 1,000 ML IV SCH (21:42)
[2021-06-04] MEDS: HEPARIN SOD 5,000 UNIT/0.5 ML VIAL SQ SCH (21:43)
[2021-06-04] MEDS ORDERED: Nursing to Pharmacy Communication SCH (23:15)
[2021-06-05] MEDS: INSULIN ASPART PER UNIT SC SCH ×4 (00:21→17:57)
[2021-06-05] MEDS: METOPROLOL TARTRATE 1 MG/ML VIAL IV SCH ×4 (00:24→17:34)
[2021-06-05] MEDS: HYDROmorphone INJ 0.5 MG/0.5 ML SYR IV PRN ×3 (00:29→17:40)
[2021-06-05] MEDS: D5W AND LACTATED RINGERS 1,000 ML IV SCH ×2 (06:32→16:24)
[2021-06-05 07:15] LABS: Hematocrit (blood only) 36.3 % (37-47); Hemoglobin 12.3 g/dL (12.0-16.0); Immature Granulocytes # (auto) 0.01 K/uL (0.00-0.02); Immature Granulocytes % (auto) 0.1 %; Lymphocytes # (auto) 0.94 K/uL (1.2-3.4); Lymphocytes % (auto) 10.9 %; Mean Corpuscular Hemoglobin 32.1 pg (25-34); Mean Corpuscular Hgb Conc 33.9 g/dL (32-36); Mean Corpuscular Volume 94.8 fL (80-100); Mean Platelet Volume 8.9 fL (7.4-10.4); Monocytes # (auto) 0.74 K/uL (0.11-0.59); Monocytes % (auto) 8.6 %; Neutrophils # (auto) 6.96 K/uL (1.4-6.5); Neutrophils % (auto) 80.4 %; Platelet Count 353 K/uL (130-400); RDW Coefficient of Variation 13.1 % (11.5-14.5); RDW Standard Deviation 44.8 fL (36.4-46.3); Red Blood Count 3.83 M/uL (4.2-5.4); White Blood Count 8.65 K/uL (4.8-10.8)
[2021-06-05 07:36] LABS: BUN Creatinine Ratio 19.5 (10-20); Calcium 9.6 mg/dl (8.5-10.1); Est GFR (African American) 83.3 ml/min; Est GFR (Non-African American) 71.9 ml/min; Potassium 3.6 mmol/L (3.5-5.1)
--- NOTE | 2021-06-05 09:34 | XRay Report ---
XR KUB/Abdomen 1 view CLINICAL HISTORY: evaluate progress SBO TECHNIQUE: 1 view of the abdomen was obtained. Comparison: Comparison is made to CT abdomen pelvis 06/04/2021 FINDINGS: There is an enteric tube with the tip in the stomach. Degenerative changes are seen in the visualized skeleton. Small bowel gaseous distention is seen, measuring up to 40 mm. A moderate amount of stool is noted within the large bowel. IMPRESSION: Gas-distended loops of small bowel are seen measuring up to 40 mm. Findings are compatible with stefany nuing small bowel obstruction. ACT 112: Negative or not required by law. Electronically signed by: Napoleon Palacios M.D. 06/05/2021 9:33 AM
[2021-06-05] MEDS: HEPARIN SOD 5,000 UNIT/0.5 ML VIAL SQ SCH ×2 (10:28→21:21)
--- NOTE | 2021-06-05 11:28 | Surgery Progress Note ---
Date of Service June 05, 2021 Assessment & Plan (1) Small bowel obstruction: (2) Diabetes mellitus: (3) Intraparenchymal hemorrhage of brain: (4) Hypertensive urgency: Plan: 80-year-old woman with small bowel obstruction. Currently not passing any flatus. NG tube in place. Continue NG tube, n.p.o., IV fluid hydration Encourage ambulation We will continue to monitor If she worsens, or fails to improve over the next few days, she may require exploratory laparotomy. We will continue to follow Admission and Anticipated Discharge Date Admission Date: June 04, 2021 Subjective 81-year-old woman with small bowel obstruction, most likely from adhesions from prior hysterectomy. She continues to have moderate pain diffusely in her abd omen. NG tube is in place and she is not vomited or had significant nausea. She denies chills or sweats. He denies passing any flatus. Physical Exam Constitutional: WD/WN, vitals as above Neck: trachea midline, no thyromegaly Gastrointestinal (Abdomen): Inspection/Auscultation: abdomen normal to inspection and + abdomen distended (Mild to moderate) Percussion/Palpation: + abdomen tender (Diffusely to deep palpation) and abdomen soft; no guarding and abdomen not rigid Musculoskeletal: Extremities: no cyanosis and no clubbing Skin: no rashes, warm and dry Psychiatric: A+Ox3, euthymic affect Results & Data ([facility]) Vital Signs (Past 12 Hours) Vital Signs Temp Pulse Pulse Resp BP BP BP 06/05/21 10:52 37.2 C 78 16 162/79 H 06/05/21 08:24 81 06/05/21 06:39 81 152/68 H 06/05/21 06:36 36.8 C 80 20 152/68 H 06/05/21 03:32 37.1 C 76 14 152/70 H 06/05/21 00:24 81 06/05/21 00:07 36.9 C 78 16 146/74 H Pulse Ox 06/05/21 10:52 97 06/05/21 08:24 06/05/21 06:39 06/05/21 06:36 94 06/05/21 03:32 97 06/05/21 00:24 06/05/21 00:07 98 Laboratory Results 06/05/21 06/05/21 06/05/21 Range/Units 06:52 06:52 06:02 WBC 8.65 (4.8-10.8) K/uL RBC 3.83 L (4.2-5.4) M/uL Hgb 12.3 (12.0-16.0) g/dL POC Hgb (12.0-16.0) g/dl Hct 36.3 L (37-47) % POC Hct (37-47) % MCV 94.8 (80-100) fL MCH 32.1 (25-34) pg MCHC 33.9 (32-36) g/dL RDW Std Deviation 44.8 (36.4-46.3) fL RDW Coeff of Belkis 13.1 (11.5-14.5) % Plt Count 353 (130-400) K/uL MPV 8.9 (7.4-10.4) fL Immature Gran % (Auto) 0.1 % Neut % (Auto) 80.4 % Lymph % (Auto) 10.9 % [place] % (Auto) 8.6 % Eos % (Auto) 0.0 % Baso % (Auto) 0.0 % Neut # (Auto) 6.96 H (1.4-6.5) K/uL Lymph # (Auto) 0.94 L (1.2-3.4) K/uL [place] # (Auto) 0.74 H (0.11-0.59) K/uL Eos # (Auto) 0.00 (0-0.5) K/uL Baso # (Auto) 0.00 (0-0.2) K/uL Immature Gran # (Auto) 0.01 (0.00-0.02) K/uL POC Sodium (135-144) mmol/L Sodium 138 (136-145) mmol/L POC Potassium (3.3-5.0) mmol/L Potassium 3.6 (3.5-5.1) mmol/L POC Chloride (101-112) mmol/L Chloride 99 (98-107) mmol/L Carbon Dioxide 32 (21-32) mmol/L POC Total CO2 (24-31) mmol/L Anion Gap 7 (3-11) POC Anion Gap (16-25) mmol/L POC BUN (7-18) mg/dl BUN 15 (6-23) mg/dl Creatinine 0.77 (0.6-1.2) mg/dl POC Creatinine (0.6-1.3) mg/dl Est Cr Clr Drug Dosing 42.0 ml/min Est GFR ( Amer) 83.3 ml/min Est GFR (Non-Af Amer) 71.9 ml/min BUN/Creatinine Ratio 19.5 (10-20) Glucose 211 H (70-99(Fasting)) mg/dl POC Glucose 190 H (70-99) mg/dl POC Glucose (other) (70-99) mg/dl Lactate (0.4-2.0) mmol/L Calcium 9.6 (8.5-10.1) mg/dl POC Ioniz Calcium Franko (1.12-1.32) mmol/l Magnesium 2.0 (1.7-2.4) mg/dl Total Bilirubin (0.2-1.0) mg/dl Direct Bilirubin (0-0.2) mg/dl AST (13-39) U/L ALT (7-52) U/L Alkaline Phosphatase (34-104) U/L Troponin I High Sens (0-14) pg/ml Total Protein (6.0-8.3) gm/dl Albumin (3.4-5.0) gm/dl Lipase (11-82) U/L Urine Color Urine Appearance (Clear) Urine pH (4.5-7.5) Ur Specific [place] (1.000-1.030) Urine Protein (Negative) Urine Glucose (UA) (Negative) Urine Ketones (Negative) Urine Blood (Negative) Urine Nitrite (Negative) Urine Bilirubin (Negative) Urine Urobilinogen (Negative) Ur Leukocyte Esterase (Negative) Urine WBC (Auto) (0-5) /hpf Urine RBC (Auto) (0-4) /hpf U Hyaline Cast (Auto) (0-5) /lpf U Epithel Cells (Auto) (0-5) /lpf Urine Bacteria (Auto) (Negative) SARS-CoV-2, RNA, NAAT (NEGATIVE) 06/05/21 06/04/21 06/04/21 Range/Units 00:05 21:09 20:55 WBC (4.8-10.8) K/uL RBC (4.2-5.4) M/uL Hgb (12.0-16.0) g/dL POC Hgb (12.0-16.0) g/dl Hct (37-47) % POC Hct (37-47) % MCV (80-100) fL MCH (25-34) pg MCHC (32-36) g/dL RDW Std Deviation (36.4-46.3) fL RDW Coeff of Belkis (11.5-14.5) % Plt Count (130-400) K/uL MPV (7.4-10.4) fL Immature Gran % (Auto) % Neut % (Auto) % Lymph % (Auto) % [place] % (Auto) % Eos % (Auto) % Baso % (Auto) % Neut # (Auto) (1.4-6.5) K/uL Lymph # (Auto) (1.2-3.4) K/uL [place] # (Auto) (0.11-0.59) K/uL Eos # (Auto) (0-0.5) K/uL Baso # (Auto) (0-0.2) K/uL Immature Gran # (Auto) (0.00-0.02) K/uL POC Sodium (135-144) mmol/L Sodium (136-145) mmol/L POC Potassium (3.3-5.0) mmol/L Potassium (3.5-5.1) mmol/L POC Chloride (101-112) mmol/L Chloride (98-107) mmol/L Carbon Dioxide (21-32) mmol/L POC Total CO2 (24-31) mmol/L Anion Gap (3-11) POC Anion Gap (16-25) mmol/L POC BUN (7-18) mg/dl BUN (6-23) mg/dl Creatinine (0.6-1.2) mg/dl POC Creatinine (0.6-1.3) mg/dl Est Cr Clr Drug Dosing ml/min Est GFR ( Amer) ml/min Est GFR (Non-Af Amer) ml/min BUN/Creatinine Ratio (10-20) Glucose (70-99(Fasting)) mg/dl POC Glucose 226 H 160 H (70-99) mg/dl POC Glucose (other) (70-99) mg/dl Lactate 1.2 (0.4-2.0) mmol/L Calcium (8.5-10.1) mg/dl POC Ioniz Calcium Frank[place] (1.12-1.32) mmol/l Magnesium (1.7-2.4) mg/dl Total Bilirubin (0.2-1.0) mg/dl Direct Bilirubin (0-0.2) mg/dl AST (13-39) U/L ALT (7-52) U/L Alkaline Phosphatase (34-104) U/L Troponin I High Sens (0-14) pg/ml Total Protein (6.0-8.3) gm/dl Albumin (3.4-5.0) gm/dl Lipase (11-82) U/L Urine Color Urine Appearance (Clear) Urine pH (4.5-7.5) Ur Specific [place] (1.000-1.030) Urine Protein (Negative) Urine Glucose (UA) (Negative) Urine Ketones (Negative) Urine Blood (Negative) Urine Nitrite (Negative) Urine Bilirubin (Negative) Urine Urobilinogen (Negative) Ur Leukocyte Esterase (Negative) Urine WBC (Auto) (0-5) /hpf Urine RBC (Auto) (0-4) /hpf U Hyaline Cast (Auto) (0-5) /lpf U Epithel Cells (Auto) (0-5) /lpf Urine Bacteria (Auto) (Negative) SARS-CoV-2, RNA, NAAT (NEGATIVE) 06/04/21 06/04/21 06/04/21 Range/Units 20:50 18:43 17:04 WBC (4.8-10.8) K/uL RBC (4.2-5.4) M/uL Hgb (12.0-16.0) g/dL POC Hgb 14.6 (12.0-16.0) g/dl Hct (37-47) % POC Hct 43 (37-47) % MCV (80-100) fL MCH (25-34) pg MCHC (32-36) g/dL RDW Std Deviation (36.4-46.3) fL RDW Coeff of Belkis (11.5-14.5) % Plt Count (130-400) K/uL MPV (7.4-10.4) fL Immature Gran % (Auto) % Neut % (Auto) % Lymph % (Auto) % [place] % (Auto) % Eos % (Auto) % Baso % (Auto) % Neut # (Auto) (1.4-6.5) K/uL Lymph # (Auto) (1.2-3.4) K/uL [place] # (Auto) (0.11-0.59) K/uL Eos # (Auto) (0-0.5) K/uL Baso # (Auto) (0-0.2) K/uL Immature Gran # (Auto) (0.00-0.02) K/uL POC Sodium 136 (135-144) mmol/L Sodium (136-145) mmol/L POC Potassium 3.6 (3.3-5.0) mmol/L Potassium (3.5-5.1) mmol/L POC Chloride 95 L (101-112) mmol/L Chloride (98-107) mmol/L Carbon Dioxide (21-32) mmol/L POC Total CO2 30 (24-31) mmol/L Anion Gap (3-11) POC Anion Gap 16.0 (16-25) mmol/L POC BUN 19 H (7-18) mg/dl BUN (6-23) mg/dl Creatinine (0.6-1.2) mg/dl POC Creatinine 0.7 (0.6-1.3) mg/dl Est Cr Clr Drug Dosing ml/min Est GFR ( Amer) ml/min Est GFR (Non-Af Amer) ml/min BUN/Creatinine Ratio (10-20) Glucose (70-99(Fasting)) mg/dl POC Glucose (70-99) mg/dl POC Glucose (other) 165 H (70-99) mg/dl Lactate (0.4-2.0) mmol/L Calcium (8.5-10.1) mg/dl POC Ioniz Calcium Franko 1.28 (1.12-1.32) mmol/l Magnesium (1.7-2.4) mg/dl Total Bilirubin (0.2-1.0) mg/dl Direct Bilirubin (0-0.2) mg/dl AST (13-39) U/L ALT (7-52) U/L Alkaline Phosphatase (34-104) U/L Troponin I High Sens (0-14) pg/ml Total Protein (6.0-8.3) gm/dl Albumin (3.4-5.0) gm/dl Lipase (11-82) U/L Urine Color Yellow Urine Appearance Clear (Clear) Urine pH 8.5 H (4.5-7.5) Ur Specific [place] 1.028 (1.000-1.030) Urine Protein Negative (Negative) Urine Glucose (UA) Negative (Negative) Urine Ketones Negative (Negative) Urine Blood Negative (Negative) Urine Nitrite Negative (Negative) Urine Bilirubin Negative (Negative) Urine Urobilinogen Negative (Negative) Ur Leukocyte Esterase Trace H (Negative) Urine WBC (Auto) 1-5 (0-5) /hpf Urine RBC (Auto) 0-4 (0-4) /hpf U Hyaline Cast (Auto) 0 (0-5) /lpf U Epithel Cells (Auto) 10-20 H (0-5) /lpf Urine Bacteria (Auto) Negative (Negative) SARS-CoV-2, RNA, NAAT NEGATIVE (NEGATIVE) 06/04/21 06/04/21 Range/Units 16:52 16:52 WBC 5.17 (4.8-10.8) K/uL RBC 4.43 (4.2-5.4) M/uL Hgb 14.3 (12.0-16.0) g/dL POC Hgb (12.0-16.0) g/dl Hct 41.8 (37-47) % POC Hct (37-47) % MCV 94.4 (80-100) fL MCH 32.3 (25-34) pg MCHC 34.2 (32-36) g/dL RDW Std Deviation 43.5 (36.4-46.3) fL RDW Coeff of Belkis 12.6 (11.5-14.5) % Plt Count 382 (130-400) K/uL MPV 8.9 (7.4-10.4) fL Immature Gran % (Auto) 0.2 % Neut % (Auto) 67.1 % Lymph % (Auto) 23.2 % [place] % (Auto) 8.9 % Eos % (Auto) 0.2 % Baso % (Auto) 0.4 % Neut # (Auto) 3.47 (1.4-6.5) K/uL Lymph # (Auto) 1.20 (1.2-3.4) K/uL [place] # (Auto) 0.46 (0.11-0.59) K/uL Eos # (Auto) 0.01 (0-0.5) K/uL Baso # (Auto) 0.02 (0-0.2) K/uL Immature Gran # (Auto) 0.01 (0.00-0.02) K/uL POC Sodium (135-144) mmol/L Sodium 136 (136-145) mmol/L POC Potassium (3.3-5.0) mmol/L Potassium 3.6 (3.5-5.1) mmol/L POC Chloride (101-112) mmol/L Chloride 95 L (98-107) mmol/L Carbon Dioxide 31 (21-32) mmol/L POC Total CO2 (24-31) mmol/L Anion Gap 10 (3-11) POC Anion Gap (16-25) mmol/L POC BUN (7-18) mg/dl BUN 17 (6-23) mg/dl Creatinine 0.77 (0.6-1.2) mg/dl POC Creatinine (0.6-1.3) mg/dl Est Cr Clr Drug Dosing 48.4 ml/min Est GFR ( Amer) 83.3 ml/min Est GFR (Non-Af Amer) 71.9 ml/min BUN/Creatinine Ratio 22.1 H (10-20) Glucose 161 H (70-99(Fasting)) mg/dl POC Glucose (70-99) mg/dl POC Glucose (other) (70-99) mg/dl Lactate (0.4-2.0) mmol/L Calcium 10.7 H (8.5-10.1) mg/dl POC Ioniz Calcium Franko (1.12-1.32) mmol/l Magnesium (1.7-2.4) mg/dl Total Bilirubin 0.4 (0.2-1.0) mg/dl Direct Bilirubin 0.1 (0-0.2) mg/dl AST 15 (13-39) U/L ALT 13 (7-52) U/L Alkaline Phosphatase 98 (34-104) U/L Troponin I High Sens 4.4 (0-14) pg/ml Total Protein 8.0 (6.0-8.3) gm/dl Albumin 4.7 (3.4-5.0) gm/dl Lipase 19 (11-82) U/L Urine Color Urine Appearance (Clear) Urine pH (4.5-7.5) Ur Specific Meno (1.000-1.030) Urine Protein (Negative) Urine Glucose (UA) (Negative) Urine Ketones (Negative) Urine Blood (Negative) Urine Nitrite (Negative) Urine Bilirubin (Negative) Urine Urobilinogen (Negative) Ur Leukocyte Esterase (Negative) Urine WBC (Auto) (0-5) /hpf Urine RBC (Auto) (0-4) /hpf U Hyaline Cast (Auto) (0-5) /lpf U Epithel Cells (Auto) (0-5) /lpf Urine Bacteria (Auto) (Negative) SARS-CoV-2, RNA, NAAT (NEGATIVE)
--- NOTE | 2021-06-05 15:15 | Electrocardiogram Report ---
Test Reason : Blood Pressure : / mmHG Vent. Rate : 073 BPM Atrial Rate : 073 BPM P-R Int : 140 ms QRS Dur : 090 ms QT Int : 390 ms P-R-T Axes : 057 012 058 degrees QTc Int : 429 ms Normal sinus rhythm Possible Left atrial enlargement Borderline ECG When compared with ECG of 11-DEC-2020 15:29, No significant change was found Confirmed by Jhony Donnelly ([id number]) on 06/05/2021 3:15:30 PM Referred By: REFERRED SELF Confirmed By:Jhony Donnelly
[2021-06-05] MEDS ORDERED: hydrALAZINE HCL 20 MG/ML VIAL IV PRN (16:30)
--- NOTE | 2021-06-05 16:35 | Hospitalist Progress Note ---
Date of Service June 05, 2021 Assessment & Plan (1) Small bowel obstruction: Plan: SBO obstruction with past abdominal surgery being hysterectomy- possibly related to adhesions - Continue with NGT to LIWS - IV hydration with D5LR 110 ml/hr - Pain control - NPO - KUB daily -We will follow general surgery recommendation (2) Diabetes mellitus: Plan: Hold Metformin- transition to insulin sliding scale without carb coverage while NPO (3) Hypertension: Plan: -Blood pressure is not controlled at this point, add clonidine patch - Metoprolol 10mg IV q6 hours with hold parameters - Hydralazine 5 mg IV q3 hrs prn -Added clonidine patch 0.2 (4) Hypercholesterolemia: Plan: Hold statin (5) Asthma: Plan: Continue SONAM (6) Anxiety: Plan: Follow may have PRN (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 - Arthritis as well - Will need to hold her gabapentin, meloxicam, and trazodone - Follow for any withdraw from above Admission and Anticipated Discharge Date Admission Date: June 04, 2021 Subjective Small bowel obstruction, patient has significant bowel sounds however not passing gas, NG tube placed to intermittent suction Review of Systems Review of Systems: REVIEW OF SYSTEMS: obtained from family secondary to patient sedation Constitutional: No fever, sweats or chills Eyes: No diplopia, no worsening or blurred vision ENT: normal hearing, no trouble swallowing Respiratory: No cough, sputum, dyspnea at rest or on exertion Cardiovascular: No chest pain, tightness or palpitations Abdomen: (+) pain, nausea, vomiting, NO diarrhea or constipation Musculoskeletal: No joint pain, calf pain, swelling Neurologic: No weakness, numbness/tingling, or balance problems Psychiatric: No anxiety or depression Skin: No rash or itch Physical Exam Physical Exam: PHYSICAL EXAM: General: patient somnolent following pain medication, did arouse much easier at the end of the exam and interview Head: Normocephalic, atraumatic ENT: PERRLA, EOMI, no pharyngeal exudate, mucous membranes moist Neuro: AAO x 3, speech clear and appropriate, strength intact bilaterally 5/5, sensation intact and equal all extremities and dermatomes, no pronator drift Chest: equal rise and fall of the chest, no accessory muscle use, no heaves or thrills, Clear to auscultation, on room air, Cardiac: Regular rate and rhythm, telemetry reviewed, skin warm dry, cap refill <3 seconds, peripheral pulses +2 no JVD, no murmur, no JVD, trace lower extremity edema GI: hypoactive bowel sounds throughout, NGT with 500ml of orange bilious drainage, soft but remains tender to deep palpation, without rebound or guarding : Spontaneously voiding, no pain, no CVA tenderness, Extremities: Normal inspection, no peripheral edema or erythema, calfs nontender to palpation Skin: no rash or erythema Results & Data Results & Data ([facility]) Vital Signs (Past 12 Hours) Vital Signs Temp Pulse Pulse Resp BP BP BP 06/05/21 16:00 75 06/05/21 15:06 37.1 C 78 19 181/99 H 06/05/21 12:12 75 162/79 H 06/05/21 10:52 37.2 C 78 16 162/79 H 06/05/21 08:24 81 06/05/21 06:39 81 152/68 H 06/05/21 06:36 36.8 C 80 20 152/68 H Pulse Ox 06/05/21 16:00 06/05/21 15:06 96 06/05/21 12:12 06/05/21 10:52 97 06/05/21 08:24 06/05/21 06:39 06/05/21 06:36 94 PG Care Time/CCT Total # of Minutes Spent Total Time Spent with Patient: Total time spent is greater than 50% in coordination of care (as documented) at patient's floor/unit and/or counseling patient: Coding Level of Care Code 52111 Subseq Hosp Care Lvl 3 Diagnoses Small bowel obstruction K56.609 Diabetes mellitus E11.9 Hypertension I10 Hypercholesterolemia E78.00 Asthma J45.909 Anxiety F41.9 Left knee DJD M17.12
[2021-06-05] MEDS: ACETAMINOPHEN 1,000 MG/100 ML VIAL IV PRN (22:10)
[2021-06-06] MEDS: METOPROLOL TARTRATE 1 MG/ML VIAL IV SCH ×4 (00:10→18:00)
[2021-06-06] MEDS: CHECK CLONIDINE PATCH PLACEMENT SCH ×3 (00:18→15:23)
[2021-06-06] MEDS: INSULIN ASPART PER UNIT SC SCH ×4 (00:23→17:59)
[2021-06-06] MEDS: D5W AND LACTATED RINGERS 1,000 ML IV SCH ×3 (02:23→21:09)
[2021-06-06 07:23] LABS: Basophils # (auto) 0.01 K/uL (0-0.2); Basophils % (auto) 0.1 %; Eosinophils # (auto) 0.07 K/uL (0-0.5); Eosinophils % (auto) 0.9 %; Hematocrit (blood only) 34.9 % (37-47); Hemoglobin 11.5 g/dL (12.0-16.0); Lymphocytes % (auto) 15.2 %; Mean Corpuscular Hemoglobin 31.9 pg (25-34); Mean Corpuscular Volume 96.7 fL (80-100); Mean Platelet Volume 8.5 fL (7.4-10.4); Monocytes # (auto) 0.95 K/uL (0.11-0.59); Neutrophils # (auto) 5.68 K/uL (1.4-6.5); Neutrophils % (auto) 71.8 %; Platelet Count 296 K/uL (130-400); RDW Coefficient of Variation 13.1 % (11.5-14.5); Red Blood Count 3.61 M/uL (4.2-5.4); White Blood Count 7.91 K/uL (4.8-10.8)
[2021-06-06] MEDS: HEPARIN SOD 5,000 UNIT/0.5 ML VIAL SQ SCH ×2 (07:44→21:09)
[2021-06-06 08:00] LABS: BUN Creatinine Ratio 13.9 (10-20); Calcium 9.1 mg/dl (8.5-10.1); Creatinine Clr Calc Pharmacy 44.1 ml/min; Est GFR (African American) 80.8 ml/min; Est GFR (Non-African American) 69.7 ml/min; Magnesium 1.8 mg/dl (1.7-2.4); Potassium 3.2 mmol/L (3.5-5.1)
[2021-06-06] MEDS ORDERED: POTASSIUM ACETATE/NSS 10 MEQ/105 ML BAG IV SCH (09:00)
--- NOTE | 2021-06-06 09:33 | XRay Report ---
XR KUB/Abdomen 1 view CLINICAL HISTORY: evaluate progress SBO. COMPARISON STUDY: 06/05/2021 TECHNIQUE: Single view of the abdomen. FINDINGS: Compared to the previous examination, there is interval decompression of gas-filled loops of large an d small bowel with no gross evidence for obstruction. Fecal material seen within the colon. There is no evidence for organomegaly or gross intra-abdominal mass. No abnormal calcifications are seen along the course of the urinary tracts bilaterally. No acute osseous pathology. IMPRESSION: 1. Interval decompression of air-filled loops of large and small bowel with no evidence for obstructi on. ACT 112: Negative or not required by law. Electronically signed by: Cj Valdes M.D. 06/06/2021 9:31 AM
[2021-06-06] MEDS ORDERED: Nursing to Pharmacy Communication SCH (11:00)
[2021-06-06] MEDS ORDERED: SOD PHOSPHATE/SOD BIPHOSPHATE ENEMA 132 ML BTL PR STA (11:55)
--- NOTE | 2021-06-06 12:20 | Surgery Progress Note ---
Date of Service June 06, 2021 Assessment & Plan (1) Small bowel obstruction: (2) Diabetes mellitus: (3) Intraparenchymal hemorrhage of brain: (4) Hypertensive urgency: Plan: 80-year-old woman with small bowel obstruction, likely secondary to adhesions -resolving - KUB today showing decompressed bowel with no signs of obstruction how large stool burden in colon - history of chronic constipation requiring stool softeners and laxatives Plan: Will continue NGT to LIS for now Keep NPO Continue IV fluids Fleet enema today Encouraged increased ambulation and oob to chair to increase GI motility can likely remove NGT tomorrow will continue to follow Dr. Tomlinson has seen patient and was present during my examination, agrees with above. Admission and Anticipated Discharge Date Admission Date: June 04, 2021 Subjective feeling about the same today as yesterday, pain /discomfort in abdomen is stable, not worse. mild intermittent nausea at times, no vomiting last 24 hours passed small amount of flatus this morning history of chronic constipation requiring daily stool softener, sometimes miralax and milk of magnesia. Physical Exam Constitutional: WD/WN, vitals as above no acute distress and not ill appearing Neck: normal visual inspection and trachea midline Respiratory: normal respiratory effort; no respiratory distress Gastrointestinal (Abdomen): Inspection/Auscultation: abdomen normal to inspection and + abdominal surgical scar (lower midline vertical hysterectomy scar); abdomen not distended and + abnormal bowel sounds Percussion/Palpation: + abdomen tender and abdomen soft; no guarding, abdomen not rigid and abdomen not firm NGT with minimal dark brown output in tubing Skin: no rashes, warm and dry Psychiatric: A+Ox3, euthymic affect Results & Data ([facility]) Vital Signs (Past 12 Hours) Vital Signs Temp Pulse Pulse Resp BP BP BP 06/06/21 11:04 36.8 C 65 19 139/74 06/06/21 07:23 37 C 66 18 139/69 06/06/21 06:44 36.7 C 63 18 119/71 06/06/21 06:00 72 146/77 H 06/06/21 05:59 68 06/06/21 03:59 37.1 C 72 18 146/77 H Pulse Ox 06/06/21 11:04 96 06/06/21 07:23 93 06/06/21 06:44 96 06/06/21 06:00 06/06/21 05:59 06/06/21 03:59 91 Laboratory Results 06/06/21 06/06/21 06/06/21 Range/Units 11:41 07:14 07:14 WBC 7.91 (4.8-10.8) K/uL RBC 3.61 L (4.2-5.4) M/uL Hgb 11.5 L (12.0-16.0) g/dL Hct 34.9 L (37-47) % MCV 96.7 (80-100) fL MCH 31.9 (25-34) pg MCHC 33.0 (32-36) g/dL RDW Std Deviation 46.0 (36.4-46.3) fL RDW Coeff of Belkis 13.1 (11.5-14.5) % Plt Count 296 (130-400) K/uL MPV 8.5 (7.4-10.4) fL Immature Gran % (Auto) 0.0 % Neut % (Auto) 71.8 % Lymph % (Auto) 15.2 % Frontier % (Auto) 12.0 % Eos % (Auto) 0.9 % Baso % (Auto) 0.1 % Neut # (Auto) 5.68 (1.4-6.5) K/uL Lymph # (Auto) 1.20 (1.2-3.4) K/uL Frontier # (Auto) 0.95 H (0.11-0.59) K/uL Eos # (Auto) 0.07 (0-0.5) K/uL Baso # (Auto) 0.01 (0-0.2) K/uL Immature Gran # (Auto) 0.00 (0.00-0.02) K/uL Sodium 141 (136-145) mmol/L Potassium 3.2 L (3.5-5.1) mmol/L Chloride 103 (98-107) mmol/L Carbon Dioxide 33 H (21-32) mmol/L Anion Gap 5 (3-11) BUN 11 (6-23) mg/dl Creatinine 0.79 (0.6-1.2) mg/dl Est Cr Clr Drug Dosing 44.1 ml/min Est GFR ( Amer) 80.8 ml/min Est GFR (Non-Af Amer) 69.7 ml/min BUN/Creatinine Ratio 13.9 (10-20) Glucose 152 H (70-99(Fasting)) mg/dl POC Glucose 141 H (70-99) mg/dl Calcium 9.1 (8.5-10.1) mg/dl Magnesium 1.8 (1.7-2.4) mg/dl 06/06/21 06/05/21 06/05/21 Range/Units 05:26 23:54 17:54 WBC (4.8-10.8) K/uL RBC (4.2-5.4) M/uL Hgb (12.0-16.0) g/dL Hct (37-47) % MCV (80-100) fL MCH (25-34) pg MCHC (32-36) g/dL RDW Std Deviation (36.4-46.3) fL RDW Coeff of Belkis (11.5-14.5) % Plt Count (130-400) K/uL MPV (7.4-10.4) fL Immature Gran % (Auto) % Neut % (Auto) % Lymph % (Auto) % Frontier % (Auto) % Eos % (Auto) % Baso % (Auto) % Neut # (Auto) (1.4-6.5) K/uL Lymph # (Auto) (1.2-3.4) K/uL Frontier # (Auto) (0.11-0.59) K/uL Eos # (Auto) (0-0.5) K/uL Baso # (Auto) (0-0.2) K/uL Immature Gran # (Auto) (0.00-0.02) K/uL Sodium (136-145) mmol/L Potassium (3.5-5.1) mmol/L Chloride (98-107) mmol/L Carbon Dioxide (21-32) mmol/L Anion Gap (3-11) BUN (6-23) mg/dl Creatinine (0.6-1.2) mg/dl Est Cr Clr Drug Dosing ml/min Est GFR ( Amer) ml/min Est GFR (Non-Af Amer) ml/min BUN/Creatinine Ratio (10-20) Glucose (70-99(Fasting)) mg/dl POC Glucose 138 H 151 H 142 H (70-99) mg/dl Calcium (8.5-10.1) mg/dl Magnesium (1.7-2.4) mg/dl Diagnostic Findings XR KUB/Abdomen 1 view CLINICAL HISTORY: evaluate progress SBO. COMPARISON STUDY: 06/05/2021 TECHNIQUE: Single view of the abdomen. FINDINGS: Compared to the previous examination, there is interval decompression of gas- filled loops of large and small bowel with no gross evidence for obstruction. Fecal material seen within the colon. There is no evidence for organomegaly or gross intra-abdominal mass. No abnormal calcifications are seen along the course of the urinary tracts bilaterally. No acute osseous pathology. IMPRESSION: 1. Interval decompression of air-filled loops of large and small bowel with no evidence for obstruction.
--- NOTE | 2021-06-06 17:32 | Hospitalist Progress Note ---
Date of Service June 06, 2021 Assessment & Plan (1) Small bowel obstruction: Plan: -Follow-up KUB today did not show any evidence of obstruction so evidence of fecal impaction, the patient has a history of chronic constipation SBO obstruction with past abdominal surgery being hysterectomy- possibly related to adhesions - Continue with NGT to LIWS - IV hydration with D5LR 110 ml/hr - Pain control - NPO -Proceed with Fleet enema (2) Diabetes mellitus: Plan: Hold Metformin- transition to insulin sliding scale without carb coverage while NPO (3) Hypertension: Plan: -Added clonidine patch 0.2 mg daily, provided blood pressure fairly controlled - Metoprolol 10mg IV q6 hours with hold parameters - Hydralazine 5 mg IV q3 hrs prn - (4) Hypercholesterolemia: Plan: Hold statin (5) Asthma: Plan: Continue SONAM (6) Anxiety: Plan: Follow may have PRN (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 - Arthritis as well - Will need to hold her gabapentin, meloxicam, and trazodone - Follow for any withdraw from above Admission and Anticipated Discharge Date Admission Date: June 04, 2021 Subjective Follow-up KUB today did not show evidence of small bowel obstruction, discussed with the surgical team, proceed with Fleet enema, keep the NG tube in, bowel sounds are hypoactive Review of Systems Review of Systems: Constitutional: No fever, sweats or chills Eyes: No diplopia, no worsening or blurred vision ENT: normal hearing, no trouble swallowing Respiratory: No cough, sputum, dyspnea at rest or on exertion Cardiovascular: No chest pain, tightness or palpitations Abdomen: (+) pain, nausea, vomiting, NO diarrhea or constipation Musculoskeletal: No joint pain, calf pain, swelling Neurologic: No weakness, numbness/tingling, or balance problems Psychiatric: No anxiety or depression Skin: No rash or itch Physical Exam Physical Exam: PHYSICAL EXAM: General: Alert oriented x3 Head: Normocephalic, atraumatic ENT: PERRLA, EOMI, no pharyngeal exudate, mucous membranes moist Neuro: AAO x 3, speech clear and appropriate, strength intact bilaterally 5/5, sensation intact and equal all extremities and dermatomes, no pronator drift Chest: equal rise and fall of the chest, no accessory muscle use, no heaves or thrills, Clear to auscultation, on room air, Cardiac: Regular rate and rhythm, telemetry reviewed, skin warm dry, cap refill <3 seconds, peripheral pulses +2 no JVD, no murmur, no JVD, trace lower extremity edema GI: hypoactive bowel sounds throughout, NGT with 500ml of orange bilious drainage, soft but remains tender to deep palpation, without rebound or guarding : Spontaneously voiding, no pain, no CVA tenderness, Extremities: Normal inspection, no peripheral edema or erythema, calfs nonte nder to palpation Skin: no rash or erythema Results & Data Results & Data ([facility]) Vital Signs (Past 12 Hours) Vital Signs Temp Pulse Pulse Resp BP BP BP 06/06/21 15:42 36.7 C 64 20 139/73 06/06/21 14:19 70 06/06/21 12:43 65 139/74 06/06/21 11:04 36.8 C 65 19 139/74 06/06/21 07:23 37 C 66 18 139/69 06/06/21 06:44 36.7 C 63 18 119/71 06/06/21 06:00 72 146/77 H 06/06/21 05:59 68 Pulse Ox 06/06/21 15:42 96 06/06/21 14:19 06/06/21 12:43 06/06/21 11:04 96 06/06/21 07:23 93 06/06/21 06:44 96 06/06/21 06:00 06/06/21 05:59 PG Care Time/CCT Total # of Minutes Spent Total Time Spent with Patient: Total time spent is greater than 50% in coordination of care (as documented) at patient's floor/unit and/or counseling patient: Coding Level of Care Code 61227 Subseq Hosp Care Lvl 2 Diagnoses Small bowel obstruction K56.609 Diabetes mellitus E11.9 Hypertension I10 Hypercholesterolemia E78.00 Asthma J45.909 Anxiety F41.9 Left knee DJD M17.12
[2021-06-07] MEDS: METOPROLOL TARTRATE 1 MG/ML VIAL IV SCH ×4 (00:31→18:30)
[2021-06-07] MEDS: INSULIN ASPART PER UNIT SC SCH ×4 (00:39→18:30)
[2021-06-07] MEDS: CHECK CLONIDINE PATCH PLACEMENT SCH ×3 (00:41→15:03)
[2021-06-07] MEDS: D5W AND LACTATED RINGERS 1,000 ML IV SCH ×2 (05:56→15:29)
[2021-06-07] MEDS: HEPARIN SOD 5,000 UNIT/0.5 ML VIAL SQ SCH ×2 (07:37→20:04)
[2021-06-07 08:35] LABS: BUN Creatinine Ratio 17.4 (10-20); Calcium 8.7 mg/dl (8.5-10.1); Creatinine Clr Calc Pharmacy 51.7 ml/min; Est GFR (Non-African American) 81.1 ml/min; Magnesium 1.7 mg/dl (1.7-2.4)
[2021-06-07 09:04] LABS: Basophils # (auto) 0.02 K/uL (0-0.2); Basophils % (auto) 0.3 %; Eosinophils # (auto) 0.13 K/uL (0-0.5); Eosinophils % (auto) 2.2 %; Hematocrit (blood only) 31.6 % (37-47); Hemoglobin 10.4 g/dL (12.0-16.0); Lymphocytes # (auto) 1.19 K/uL (1.2-3.4); Lymphocytes % (auto) 20.2 %; Mean Corpuscular Hemoglobin 31.3 pg (25-34); Mean Corpuscular Hgb Conc 32.9 g/dL (32-36); Mean Corpuscular Volume 95.2 fL (80-100); Mean Platelet Volume 8.9 fL (7.4-10.4); Monocytes # (auto) 0.66 K/uL (0.11-0.59); Monocytes % (auto) 11.2 %; Neutrophils # (auto) 3.89 K/uL (1.4-6.5); Neutrophils % (auto) 66.1 %; Platelet Count 274 K/uL (130-400); RDW Standard Deviation 45.6 fL (36.4-46.3); Red Blood Count 3.32 M/uL (4.2-5.4); White Blood Count 5.89 K/uL (4.8-10.8)
[2021-06-07] MEDS ORDERED: SOD PHOSPHATE/SOD BIPHOSPHATE ENEMA 132 ML BTL PR STA (16:47)
--- NOTE | 2021-06-07 17:50 | Hospitalist Progress Note ---
Date of Service June 07, 2021 Assessment & Plan (1) Small bowel obstruction: Plan: -The patient had 2 bowel movements yesterday after Fleet enema -Follow-up KUB on 06/06 did not show any evidence of obstruction so evidence of fecal impaction, the patient has a history of chronic constipation SBO obstruction with past abdominal surgery being hysterectomy- possibly related to adhesions -waiting for surgery input if he can discontinue NG tube - IV hydration with D5LR 110 ml/hr - Pain control - NPO (2) Diabetes mellitus: Plan: Hold Metformin- transition to insulin sliding scale without carb coverage while NPO (3) Hypertension: Plan: -Added clonidine patch 0.2 mg daily, provided blood pressure fairly controlled - Metoprolol 10mg IV q6 hours with hold parameters - Hydralazine 5 mg IV q3 hrs prn - (4) Hypercholesterolemia: Plan: Hold statin (5) Asthma: Plan: Continue SONAM (6) Anxiety: Plan: Follow may have PRN (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 - Arthritis as well - Will need to hold her gabapentin, meloxicam, and trazodone - Follow for any withdraw from above Admission and Anticipated Discharge Date Admission Date: June 04, 2021 Subjective The patient responded to Fleet enema had 2 bowel movement, passing gas, awaiting procedure improved, most likely related DC NG tube and start feeding Physical Exam Physical Exam: PHYSICAL EXAM: General: Alert oriented x3 Head: Normocephalic, atraumatic ENT: PERRLA, EOMI, no pharyngeal exudate, mucous membranes moist Neuro: AAO x 3, speech clear and appropriate, strength intact bilaterally 5/5, sensation intact and equal all extremities and dermatomes, no pronator drift Chest: equal rise and fall of the chest, no accessory muscle use, no heaves or thrills, Clear to auscultation, on room air, Cardiac: Regular rate and rhythm, telemetry reviewed, skin warm dry, cap refill <3 seconds, peripheral pulses +2 no JVD, no murmur, no JVD, trace lower extremity edema GI: hypoactive bowel sounds throughout, NGT with 500ml of orange bilious drainage, soft but remains tender to deep palpation, without rebound or guarding : Spontaneously voiding, no pain, no CVA tenderness, Extremities: Normal inspection, no peripheral edema or erythema, calfs nontender to palpation Skin: no rash or erythema Results & Data Results & Data ([facility]) Vital Signs (Past 12 Hours) Vital Signs Temp Pulse Pulse Resp BP BP Pulse Ox 06/07/21 15:25 36.9 C 56 L 19 170/69 H 98 06/07/21 14:20 60 06/07/21 12:07 80 155/72 H 06/07/21 11:34 36.7 C 77 16 157/73 H 97 06/07/21 06:26 37.0 C 57 L 18 139/67 95 06/07/21 06:13 56 L PG Care Time/CCT Total # of Minutes Spent Total Time Spent with Patient: Total time spent is greater than 50% in coordination of care (as documented) at patient's floor/unit and/or counseling patient: Coding Level of Care Code 42114 Subseq Hosp Care Lvl 2 Diagnoses Small bowel obstruction K56.609 Diabetes mellitus E11.9 Hypertension I10 Hypercholesterolemia E78.00 Asthma J45.909 Anxiety F41.9 Left knee DJD M17.12
--- NOTE | 2021-06-07 19:46 | Surgery Progress Note ---
Date of Service June 07, 2021 Assessment & Plan (1) Small bowel obstruction: Plan: F/U SBO, pt is stable, passed one time stool, continue treatment, fleet enema, KUB tomorrow, will F/U (2) Diabetes mellitus: (3) Intraparenchymal hemorrhage of brain: (4) Hypertensive urgency: Plan: 80-year-old woman with small bowel obstruction, likely secondary to adhesions -resolving - KUB today showing decompressed bowel with no signs of obstruction how large stool burden in colon - history of chronic constipation requiring stool softeners and laxatives Plan: Will continue NGT to LIS for now Keep NPO Continue IV fluids Fleet enema today Encouraged increased ambulation and oob to chair to increase GI motility can likely remove NGT tomorrow will continue to follow Dr. Tomlinson has seen patient and was present during my examination, agrees with above. Admission and Anticipated Discharge Date Admission Date: June 04, 2021 Supervising Physician Co-Signing Physician Notes Patient seen and examined, chart reviewed, case discussed with WADE Corrales and agree with his assessment and plan as documented above. In brief, patient is an 80-year-old female with history of hypertension, hyperlipidemia, diabetes, prior hemorrhagic stroke presenting with acute abdominal pain, nausea and vomiting. Patient ate lunch around 1300 then developed the pain shortly after. ER work-up notable for moderate grade small bowel obstruction with dilated loops of fluid-filled bowel and decompressed distal small bowel. Also possibility of closed-loop obstruction and distended stomach. Patient was seen by surgery while in the ER. NG tube was placed to suction with improvement of symptoms. She had approximately 600 mL of liquid output. Patient became hypoxic after receiving pain medication in the ER, improved with supplemental oxygen On physical exam patient appears nontoxic but uncomfortable. Somnolent but arousable, answers questions appropriately participates in exam. Skinwarm, dry, intact, no rashes or lesions HEENTmucous membranes, neck supple Heart+ S1, S2, regular, no murmur/rub/gallops Lungsequal air entry bilaterally, no rales/rhonchi/wheezes Abdomenpositive bowel sounds, diminished, soft, tender with deep palpation without rebound or guarding, NG tube in place to wall suction Extremitieswarm, well-perfused, no clubbing/cyanosis/edema Neurono gross deficits, patient oriented x3 Labs and images reviewed. Lactate = 1.2 Assessment/plan: 80-year-old female presenting with moderate small bowel obstruction as well as concern for closed-loop obstruction with distended stomach. Admit to PCU Continue NG tube to low intermittent wall suction Gentle IV hydration Pain control and antiemetics as needed General surgery consultation appreciated Management of diabetes, hypertension and hyperlipidemia as above Subjective The patient responded to Fleet enema had 2 bowel movement, passing gas, awaiting procedure improved, most likely related DC NG tube and start feeding Dr. Tomlinson F/U SBO pt is stable, no nausea, no vomiting, no fever, NG 260ml, passed BM after Fleet enema, Physical Exam Constitutional: WD/WN, vitals as above Eyes: PERRL, conjunctivae normal, anicteric sclerae Neck: trachea midline, no thyromegaly Respiratory: normal respiratory effort, lungs clear to auscultation Cardiovascular: RRR, no murmur, no edema Gastrointestinal (Abdomen): soft, mild tenderness periumbilical area, no rebound pain, no distend, BS + Neurologic: patellar DTR's 2+ bilat, sensation intact Psychiatric: A+Ox3, euthymic affect Results & Data ([facility]) Vital Signs (Past 12 Hours) Vital Signs Temp Pulse Pulse Resp BP BP Pulse Ox 06/07/21 18:30 72 166/68 H 06/07/21 15:25 36.9 C 56 L 19 170/69 H 98 06/07/21 14:20 60 06/07/21 12:07 80 155/72 H 06/07/21 11:34 36.7 C 77 16 157/73 H 97 Laboratory Results Abnormal lab results 06/07/21 06/07/21 06/07/21 Range/Units 00:26 06:40 06:57 RBC (4.2-5.4) M/uL Hgb (12.0-16.0) g/dL Hct (37-47) % Lymph # (Auto) (1.2-3.4) K/uL [place] # (Auto) (0.11-0.59) K/uL Potassium (3.5-5.1) mmol/L Glucose (70-99(Fasting)) mg/dl POC Glucose 155 H 131 H 138 H (70-99) mg/dl 04/06/07/21 06/07/21 Range/Units 08:03 08:03 11:38 RBC 3.32 L (4.2-5.4) M/uL Hgb 10.4 L (12.0-16.0) g/dL Hct 31.6 L (37-47) % Lymph # (Auto) 1.19 L (1.2-3.4) K/uL [place] # (Auto) 0.66 H (0.11-0.59) K/uL Potassium 3.0 L (3.5-5.1) mmol/L Glucose 147 H (70-99(Fasting)) mg/dl POC Glucose 129 H (70-99) mg/dl 06/07/21 Range/Units 18:55 RBC (4.2-5.4) M/uL Hgb (12.0-16.0) g/dL Hct (37-47) % Lymph # (Auto) (1.2-3.4) K/uL [place] # (Auto) (0.11-0.59) K/uL Potassium (3.5-5.1) mmol/L Glucose (70-99(Fasting)) mg/dl POC Glucose 124 H (70-99) mg/dl
[2021-06-07] MEDS: POTASSIUM CHLORIDE / WTR 10 MEQ/100 ML PLCT IV SCH ×4 (19:58→23:15)
[2021-06-07] MEDS ORDERED: SOD PHOSPHATE/SOD BIPHOSPHATE ENEMA 132 ML BTL PR ONE (20:13)
[2021-06-08] MEDS: CHECK CLONIDINE PATCH PLACEMENT SCH ×3 (00:29→17:01)
[2021-06-08] MEDS: INSULIN ASPART PER UNIT SC SCH ×5 (00:36→20:42)
[2021-06-08] MEDS: D5W AND LACTATED RINGERS 1,000 ML IV SCH ×3 (00:37→20:40)
[2021-06-08] MEDS: POTASSIUM CHLORIDE / WTR 10 MEQ/100 ML PLCT IV SCH (00:37)
[2021-06-08] MEDS: METOPROLOL TARTRATE 1 MG/ML VIAL IV SCH ×4 (00:37→18:03)
[2021-06-08 08:02] LABS: Hematocrit (blood only) 31.3 % (37-47); Hemoglobin 10.4 g/dL (12.0-16.0); Mean Corpuscular Hemoglobin 31.7 pg (25-34); Mean Corpuscular Hgb Conc 33.2 g/dL (32-36); Mean Corpuscular Volume 95.4 fL (80-100); Mean Platelet Volume 8.5 fL (7.4-10.4); Platelet Count 246 K/uL (130-400); RDW Coefficient of Variation 12.9 % (11.5-14.5); Red Blood Count 3.28 M/uL (4.2-5.4); White Blood Count 4.28 K/uL (4.8-10.8)
[2021-06-08] MEDS: HEPARIN SOD 5,000 UNIT/0.5 ML VIAL SQ SCH ×2 (08:05→20:41)
[2021-06-08 08:27] LABS: BUN Creatinine Ratio 15.9 (10-20); Calcium 8.7 mg/dl (8.5-10.1); Creatinine Clr Calc Pharmacy 51.7 ml/min; Est GFR (Non-African American) 81.1 ml/min; Potassium 3.2 mmol/L (3.5-5.1)
--- NOTE | 2021-06-08 08:52 | XRay Report ---
KUB CLINICAL HISTORY: Small bowel obstruction. COMPARISON STUDY: CT of the abdomen and pelvis June 04, 2021. KUB June 06, 2021. FINDINGS: Tip of nasogastric tube is within the body of the stomach. No dilated loops of small bowel are evident on this examination. Amount of stool is within normal limits. Although sensitivity is dim inished on this supine exam, there is no evidence for free air. IMPRESSION: No radiographic evidence for a bowel obstruction. ACT 112: Negative or not required by law. Electronically signed by: Flex Alberto M.D. 06/08/2021 8:50 AM
[2021-06-08] MEDS ORDERED: POTASSIUM CHLORIDE CRTAB 20 MEQ TABCR PO STA (12:28)
[2021-06-08] MEDS ORDERED: MAGNESIUM HYDROXIDE SUSP 30 ML UDC PO ONE (12:28)
[2021-06-08] MEDS: DOCUSATE SODIUM 100 MG CAP PO SCH ×2 (12:44→20:41)
--- NOTE | 2021-06-08 13:10 | Surgery Progress Note ---
Date of Service June 08, 2021 Assessment & Plan (1) Small bowel obstruction: (2) Diabetes mellitus: (3) Intraparenchymal hemorrhage of brain: (4) Hypertensive urgency: Plan: 80-year-old woman with small bowel obstruction, likely secondary to adhesions -resolved - KUB today showing decompressed bowel with no signs of obstruction stool burden in right side of colon - history of chronic constipation requiring stool softeners and laxatives Plan: removed NGT start clear liquids We will start Colace twice daily and will give milk of magnesia 40 Meq potassium now Encourage ambulation and oob to chair to increase GI motility Consult dietitian per patient request Will likely need adjustment of her bowel regimen as she has history of chronic constipation requiring twice daily stool softeners and laxatives on a regular basis. She will likely need a colonoscopy and outpatient GI follow-up as well. Dr. Tomlinson has seen patient and was present during my examination, agrees with above. Admission and Anticipated Discharge Date Admission Date: June 04, 2021 Subjective Feeling better today Still having abdominal soreness Did not have a bowel movement after Fleet enema last evening Not passing much gas today Physical Exam Constitutional: WD/WN, vitals as above no acute distress and not ill appearing Neck: normal visual inspection and trachea midline Respiratory: normal respiratory effort; no respiratory distress Gastrointestinal (Abdomen): Inspection/Auscultation: abdomen normal to inspection; abdomen not distended Percussion/Palpation: abdomen soft; abdomen nontender, no guarding and abdomen not rigid NGT with dark brown output in tubing and canister Skin: no rashes, warm and dry Psychiatric: A+Ox3, euthymic affect Results & Data ([facility]) Vital Signs (Past 12 Hours) Vital Signs Temp Pulse Pulse Resp BP BP Pulse Ox 06/08/21 12:22 58 L 150/62 H 06/08/21 11:45 36.7 C 66 20 155/64 H 97 06/08/21 07:21 61 06/08/21 06:21 36.8 C 84 18 109/68 91 06/08/21 06:08 58 L 159/74 H 06/08/21 03:33 37.0 C 55 L 18 152/76 H 96 Laboratory Results 06/08/21 06/08/21 06/08/21 Range/Units 11:50 07:48 07:48 WBC 4.28 L (4.8-10.8) K/uL RBC 3.28 L (4.2-5.4) M/uL Hgb 10.4 L (12.0-16.0) g/dL Hct 31.3 L (37-47) % MCV 95.4 (80-100) fL MCH 31.7 (25-34) pg MCHC 33.2 (32-36) g/dL RDW Std Deviation 45.0 (36.4-46.3) fL RDW Coeff of Belkis 12.9 (11.5-14.5) % Plt Count 246 (130-400) K/uL MPV 8.5 (7.4-10.4) fL Sodium 143 (136-145) mmol/L Potassium 3.2 L (3.5-5.1) mmol/L Chloride 107 (98-107) mmol/L Carbon Dioxide 31 (21-32) mmol/L Anion Gap 5 (3-11) BUN 11 (6-23) mg/dl Creatinine 0.69 (0.6-1.2) mg/dl Est Cr Clr Drug Dosing 51.7 ml/min Est GFR ( Amer) 94.0 ml/min Est GFR (Non-Af Amer) 81.1 ml/min BUN/Creatinine Ratio 15.9 (10-20) Glucose 139 H (70-99(Fasting)) mg/dl POC Glucose 141 H (70-99) mg/dl Calcium 8.7 (8.5-10.1) mg/dl 06/08/21 06/08/21 06/07/21 Range/Units 06:04 00:27 18:55 WBC (4.8-10.8) K/uL RBC (4.2-5.4) M/uL Hgb (12.0-16.0) g/dL Hct (37-47) % MCV (80-100) fL MCH (25-34) pg MCHC (32-36) g/dL RDW Std Deviation (36.4-46.3) fL RDW Coeff of Belkis (11.5-14.5) % Plt Count (130-400) K/uL MPV (7.4-10.4) fL Sodium (136-145) mmol/L Potassium (3.5-5.1) mmol/L Chloride (98-107) mmol/L Carbon Dioxide (21-32) mmol/L Anion Gap (3-11) BUN (6-23) mg/dl Creatinine (0.6-1.2) mg/dl Est Cr Clr Drug Dosing ml/min Est GFR ( Amer) ml/min Est GFR (Non-Af Amer) ml/min BUN/Creatinine Ratio (10-20) Glucose (70-99(Fasting)) mg/dl POC Glucose 129 H 157 H 124 H (70-99) mg/dl Calcium (8.5-10.1) mg/dl Diagnostic Findings KUB CLINICAL HISTORY: Small bowel obstruction. COMPARISON STUDY: CT of the abdomen and pelvis June 04, 2021. KUB June 06, 2021. FINDINGS: Tip of nasogastric tube is within the body of the stomach. No dilated loops of small bowel are evident on this examination. Amount of stool is within normal limits. Although sensitivity is diminished on this supine exam, there is no evidence for free air. IMPRESSION: No radiographic evidence for a bowel obstruction.
[2021-06-08] MEDS ORDERED: Nursing to Pharmacy Communication SCH (16:45)
--- NOTE | 2021-06-08 17:14 | Hospitalist Progress Note ---
Date of Service June 08, 2021 Assessment & Plan (1) Small bowel obstruction: Plan: - IV hydration with D5LR 110 ml/hr -> reduce rate to 80ml/hr - Pain control - NG tube d/c'd, Clear liquids - tolerating well, can likely move to full liquids tomorrow (2) Diabetes mellitus: Plan: HbA1C with AM labs Hold Metformin Continue Novolog sliding scale: Goal BSG Range: Low 110_mg/dL, High _140mg/dL Correction Factor: 20_mg/dL/unit Carbohydrate ratio = __0 g/unit (3) Hypertension: Plan: -Added clonidine patch 0.2 mg daily, provided blood pressure fairly controlled - Metoprolol 5mg IV q6 hours with hold parameters - Switch back to PO meds tomorrow - Hydralazine 5 mg IV q3 hrs prn (4) Asthma: Plan: Continue SONAM PRN (5) Anxiety: Plan: Follow may have PRN (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 Passing gas today but no BM as of yet. No nausea or vomiting. Review of Systems Review of Systems: All systems reviewed & are unremarkable except as noted in Subjective Physical Exam Constitutional: WD/WN, vitals as above Respiratory: normal respiratory effort, lungs clear to auscultation Cardiovascular: Rate/Rhythm: regular rate and regular rhythm Heart Sounds: no murmur Extremities: normal capillary refill and + pedal edema (trace); no calf tenderness Gastrointestinal (Abdomen): Inspection/Auscultation: normal bowel sounds Percussion/Palpation: abdomen soft; abdomen nontender Psychiatric: A+Ox3, euthymic affect Results & Data Results & Data ([facility]) Vital Signs (Past 12 Hours) Vital Signs Temp Pulse Pulse Resp BP BP BP 06/08/21 16:56 66 06/08/21 15:21 36.3 C L 61 20 117/56 L 06/08/21 12:22 58 L 150/62 H 06/08/21 11:45 36.7 C 66 20 155/64 H 06/08/21 07:21 61 06/08/21 06:21 36.8 C 84 18 109/68 06/08/21 06:08 58 L 159/74 H Pulse Ox 06/08/21 16:56 06/08/21 15:21 97 06/08/21 12:22 06/08/21 11:45 97 06/08/21 07:21 06/08/21 06:21 91 06/08/21 06:08 PG Care Time/CCT Total # of Minutes Spent Total Time Spent with Patient: Total time spent is greater than 50% in coordination of care (as documented) at patient's floor/unit and/or counseling patient: Coding Level of Care Code 77655 Subseq Hosp Care Lvl 2 Diagnoses Small bowel obstruction K56.609 Diabetes mellitus E11.9 Hypertension I10 Asthma J45.909 Anxiety F41.9 Left knee DJD M17.12
[2021-06-08] MEDS ORDERED: METOPROLOL SUCC 25MG EXT REL TAB PO ONE (18:45)
[2021-06-08] MEDS: traZODone HCL 50 MG TAB PO SCH (20:46)
[2021-06-08] MEDS ORDERED: ACETAMINOPHEN 10MG/ML PEDIATRIC DOSING IV STA (23:46)
[2021-06-09] MEDS ORDERED: ACETAMINOPHEN 500 MG/50 ML VIAL IV SCH
[2021-06-09] MEDS ORDERED: ACETAMINOPHEN 500 MG TAB PO STA (00:01)
[2021-06-09] MEDS: D5W AND LACTATED RINGERS 1,000 ML IV SCH (05:48)
[2021-06-09] MEDS: INSULIN ASPART PER UNIT SC SCH ×4 (08:29→21:00)
[2021-06-09] MEDS: DOCUSATE SODIUM 100 MG CAP PO SCH ×2 (08:32→21:05)
[2021-06-09] MEDS: METOPROLOL SUCC 25MG EXT REL TAB PO SCH (08:33)
[2021-06-09] MEDS: HEPARIN SOD 5,000 UNIT/0.5 ML VIAL SQ SCH ×2 (08:35→21:05)
[2021-06-09] MEDS ORDERED: GABAPENTIN 100 MG CAP PO SCH ×2 (09:00→21:00)
[2021-06-09 09:05] LABS: BUN Creatinine Ratio 14.3 (10-20); Calcium 8.7 mg/dl (8.5-10.1); Creatinine Clr Calc Pharmacy 50.9 ml/min; Est GFR (African American) 93.5 ml/min; Est GFR (Non-African American) 80.7 ml/min; Potassium 3.4 mmol/L (3.5-5.1)
[2021-06-09 09:54] LABS: Estimated Average Glucose 143 mg/dl; Hemoglobin A1C 6.6 % (4.5-5.6)
[2021-06-09] MEDS ORDERED: MAGNESIUM HYDROXIDE SUSP 30 ML UDC PO ONE (10:54)
--- NOTE | 2021-06-09 11:26 | Surgery Progress Note ---
Date of Service June 09, 2021 Assessment & Plan (1) Small bowel obstruction: (2) Diabetes mellitus: (3) Intraparenchymal hemorrhage of brain: (4) Hypertensive urgency: Plan: 80-year-old woman with small bowel obstruction, likely secondary to adhesions -resolved - KUB 06/08/2021 showing decompressed bowel with no signs of obstruction stool burden in right side of colon - history of chronic constipation requiring stool softeners and laxatives Plan: advance to full liquids Continue colace BID Milk of Magnesia again today Miralax today Oral Potassium ordered by medicine Encourage ambulation and oob to chair to increase GI motility Consult dietitian per patient request Will likely need adjustment of her bowel regimen as she has history of chronic constipation requiring twice daily stool softeners and laxatives on a regular basis. She will need a colonoscopy and outpatient GI follow-up as well. [facility] surgery covereing this weekend. Likely discharge tomorrow with advancing diet to soft diet tomorrow Dr. Tomlinson has seen patient and agrees with above. Admission and Anticipated Discharge Date Admission Date: June 04, 2021 Subjective feeling okay today not passing gas or bowel movement today but had bowel movement last evening after milk of magnesia tolerating clear liquids Physical Exam Constitutional: WD/WN, vitals as above no acute distress and not ill appearing Respiratory: normal respiratory effort; no respiratory distress Gastrointestinal (Abdomen): Inspection/Auscultation: abdomen normal to inspection; abdomen not distended Skin: no rashes, warm and dry Psychiatric: Orientation: alert and oriented x 3 Results & Data ([facility]) Vital Signs (Past 12 Hours) Vital Signs Temp Pulse Resp BP Pulse Ox 06/09/21 07:37 36.7 C 73 18 177/71 H 97 Laboratory Results 06/09/21 06/09/21 06/09/21 Range/Units 08:01 08:01 07:51 Sodium 139 (136-145) mmol/L Potassium 3.4 L (3.5-5.1) mmol/L Chloride 105 (98-107) mmol/L Carbon Dioxide 29 (21-32) mmol/L Anion Gap 5 (3-11) BUN 10 (6-23) mg/dl Creatinine 0.70 (0.6-1.2) mg/dl Est Cr Clr Drug Dosing 50.9 ml/min Est GFR ( Amer) 93.5 ml/min Est GFR (Non-Af Amer) 80.7 ml/min BUN/Creatinine Ratio 14.3 (10-20) Glucose 125 H (70-99(Fasting)) mg/dl POC Glucose 119 H (70-99) mg/dl Estimat Average Glucose 143 mg/dl Hemoglobin A1c 6.6 H (4.5-5.6) % Calcium 8.7 (8.5-10.1) mg/dl 06/08/21 06/08/21 06/08/21 Range/Units 19:59 16:42 11:50 Sodium (136-145) mmol/L Potassium (3.5-5.1) mmol/L Chloride (98-107) mmol/L Carbon Dioxide (21-32) mmol/L Anion Gap (3-11) BUN (6-23) mg/dl Creatinine (0.6-1.2) mg/dl Est Cr Clr Drug Dosing ml/min Est GFR ( Amer) ml/min Est GFR (Non-Af Amer) ml/min BUN/Creatinine Ratio (10-20) Glucose (70-99(Fasting)) mg/dl POC Glucose 100 H 128 H 141 H (70-99) mg/dl Estimat Average Glucose mg/dl Hemoglobin A1c (4.5-5.6) % Calcium (8.5-10.1) mg/dl
[2021-06-09] MEDS: amLODIPine BESYLATE 5 MG TAB PO SCH (11:28)
[2021-06-09] MEDS: POTASSIUM CHLORIDE CRTAB 20 MEQ TABCR PO SCH ×2 (11:29→21:03)
[2021-06-09] MEDS: LOSARTAN POTASSIUM 50 MG TAB PO SCH ×2 (11:29→21:04)
[2021-06-09] MEDS: POLYETHYLENE (MIRALAX) 17 GM PACK PO SCH (11:30)
--- NOTE | 2021-06-09 11:30 | Hospitalist Progress Note ---
Date of Service June 09, 2021 Assessment & Plan (1) Small bowel obstruction: Plan: - NG tube d/c'd, Full liquids. Likely can advanced to soft diet and d/c tomorrow. (2) Diabetes mellitus: Plan: HbA1C 6.6 Patient reports metformin was recently discontinued therefore removed off her home med list. Continue Novolog sliding scale: Goal BSG Range: Low 110_mg/dL, High _140mg/dL Correction Factor: 20_mg/dL/unit Carbohydrate ratio = __0 g/unit (3) Hypertension: Plan: - Restarted on PO meds with metoprolol succinate yesterday. Restart on amlodipine and losartan today. If potassium level normal and BP able will restart HCTZ tomorrow. 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 Tolerating clear liquid diet without nausea, vomiting or worsening abdominal pain. Passing gas today but not yet had a bowel movement. Review of Systems Review of Systems: All systems reviewed & are unremarkable except as noted in Subjective Physical Exam Constitutional: WD/WN, vitals as above Respiratory: normal respiratory effort, lungs clear to auscultation Cardiovascular: Rate/Rhythm: regular rate and regular rhythm Heart Sounds: no murmur Extremities: normal capillary refill and + pedal edema (trace); no calf tenderness Gastrointestinal (Abdomen): Inspection/Auscultation: normal bowel sounds Percussion/Palpation: abdomen soft; abdomen nontender Psychiatric: A+Ox3, euthymic affect Results & Data Results & Data ([facility]) Vital Signs (Past 12 Hours) Vital Signs Temp Pulse Resp BP Pulse Ox 06/09/21 07:37 36.7 C 73 18 177/71 H 97 PG Care Time/CCT Total # of Minutes Spent Total Time Spent with Patient: Total time spent is greater than 50% in coordination of care (as documented) at patient's floor/unit and/or counseling patient: Coding Level of Care Code 92951 Subseq Hosp Care Lvl 2 Diagnoses Small bowel obstruction K56.609 Diabetes mellitus E11.9 Hypertension I10 Asthma J45.909 Anxiety F41.9 Left knee DJD M17.12
[2021-06-09] MEDS ORDERED: MAGNESIUM HYDROXIDE SUSP 30 ML UDC ONE (17:58)
[2021-06-09] MEDS ORDERED: MAGNESIUM HYDROXIDE SUSP 30 ML UDC PO PRN (20:48)
[2021-06-09] MEDS: DICLOFENAC SOD 1% GEL 100 GM TUBE EXT SCH (21:54)
[2021-06-09] MEDS: traZODone HCL 50 MG TAB PO SCH (21:55)
[2021-06-10] MEDS: DICLOFENAC SOD 1% GEL 100 GM TUBE EXT SCH ×3 (02:08→15:10)
--- NOTE | 2021-06-10 05:31 | Surgery Progress Note ---
Date of Service June 10, 2021 Assessment & Plan (1) Small bowel obstruction: Plan: Patient has been admitted on the hospitalist service. We will proceed as follows: This patient has had a bowel movement and is tolerating full liquid diet consideration can be given to placing patient on soft diet If patient tolerates further diet advancement discharge home is reasonable Plans noted that patient will require colonoscopy in the future Maintain patient on appropriate bowel regimen Admission and Anticipated Discharge Date Admission Date: June 04, 2021 Supervising Physician Co-Signing Physician Notes I personally saw and evaluated the patient with Delta Fergusno PA-C and agree with the assessment and plan. 80-year-old female with resolved small bowel obstruction Advance diet as tolerated If she tolerates diet she can be discharged from a surgical standpoint Will follow Subjective Patient denies any nausea or vomiting. She notes she has had a bowel movement in the past 24 hours. She is tolerating liquid diet without worsening abdominal pain. Physical Exam Gastrointestinal (Abdomen): Abdomen is soft, nontender, and nondistended Results & Data ([facility]) Vital Signs (Past 12 Hours) Vital Signs Temp Pulse Resp BP BP Pulse Ox 06/09/21 23:03 37 C 66 143/82 H 95 06/09/21 19:11 37.2 C 81 16 145/69 H 97 PG Care Time/CCT Total # of Minutes Spent Total Time Spent with Patient: Total time spent is greater than 50% in coordination of care (as documented) at patient's floor/unit and/or counseling patient: Coding Level of Care Code 01112 Subseq Hosp Care Lvl 1 Diagnoses Small bowel obstruction K56.609
[2021-06-10] MEDS: INSULIN ASPART PER UNIT SC SCH ×2 (08:02→12:19)
[2021-06-10] MEDS: POLYETHYLENE (MIRALAX) 17 GM PACK PO SCH (08:04)
[2021-06-10] MEDS: POTASSIUM CHLORIDE CRTAB 20 MEQ TABCR PO SCH (08:05)
[2021-06-10] MEDS: LOSARTAN POTASSIUM 50 MG TAB PO SCH (08:05)
[2021-06-10] MEDS: amLODIPine BESYLATE 5 MG TAB PO SCH (08:05)
[2021-06-10] MEDS: DOCUSATE SODIUM 100 MG CAP PO SCH (08:05)
[2021-06-10] MEDS: METOPROLOL SUCC 25MG EXT REL TAB PO SCH (08:06)
[2021-06-10] MEDS: HEPARIN SOD 5,000 UNIT/0.5 ML VIAL SQ SCH (08:09)
[2021-06-10 09:45] LABS: Hematocrit (blood only) 35.4 % (37-47); Hemoglobin 11.6 g/dL (12.0-16.0); Mean Corpuscular Hemoglobin 32.1 pg (25-34); Mean Corpuscular Hgb Conc 32.8 g/dL (32-36); Mean Corpuscular Volume 98.1 fL (80-100); Mean Platelet Volume 9.3 fL (7.4-10.4); Platelet Count 326 K/uL (130-400); RDW Coefficient of Variation 12.9 % (11.5-14.5); RDW Standard Deviation 46.2 fL (36.4-46.3); Red Blood Count 3.61 M/uL (4.2-5.4); White Blood Count 5.69 K/uL (4.8-10.8)
[2021-06-10 10:21] LABS: BUN Creatinine Ratio 12.9 (10-20); Calcium 9.1 mg/dl (8.5-10.1); Est GFR (Non-African American) 63.8 ml/min; Potassium 3.6 mmol/L (3.5-5.1)
--- NOTE | 2021-06-10 15:47 | Discharge Summary ---
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 Patient comes to the EMD today via EMS for acute onset of abdominal pain followed by nausea and vomiting. The onset of the pain was right after lunch per the at around 1300 to worsen. He states that she had abdominal pain prior to eating noting around 1230. The patient ate breakfast this morning without any pain or n/v, she then went to [employer] and came home and had pizza and salad. In the EMD she had another episode of vomiting. She had routine labs performed to include HScTNI, abdomen CT scan and chest Xray. Her abdominal CT scan was notable for reported moderate grade SBO, dilated loops of fluid filled bowel and decompressed distal small bowel. Also possibility of closed loop obstruction and distended stomach. Surgery was consulted by the EMD and was present in room with my evaluation. The patient had an NGT placed to suction and Radiologically confirmed. [facility] was consulted for admission. Patient was somnolent for exam following Dilaudid administration and Ativan administration for NGT placement and abdominal pain. She was placed on oxygen. She reportedly has no major neurological deficits but remains with left sided visual deficits from her stroke in 12/01. Her abdomen is soft but tender mostly on the left side. She will be placed in the PCU to continue to monitor her respiratory status with sedation as well as she is NPO and will reqiure IV medications for BP control and continuation of her beta-blockade as well. COVID test admisison is : NEGATIVE Principal Diagnosis Small bowel obstruction Discharge Exam Constitutional WD/WN, vitals as above Respiratory normal respiratory effort, lungs clear to auscultation Cardiovascular Rate/Rhythm: regular rate and regular rhythm Heart Sounds: no murmur Extremities: normal capillary refill and + pedal edema (trace); no calf tenderness Gastrointestinal (Abdomen) Inspection/Auscultation: normal bowel sounds Percussion/Palpation: abdomen soft; abdomen nontender Psychiatric A+Ox3, euthymic affect Discharge Data Allergies Allergy/AdvReac Type Severity Reaction Status Date / Time adhesive Allergy Unknown rash, Verified 06/04/21 17:23 redness latex Allergy Unknown skin Verified 06/04/21 17:23 redness lisinopril AdvReac Unknown cough Verified 06/04/21 17:23 Consultations 06/04/21 18:07 Consult General Surgery Routine 06/04/21 18:52 ED Decision to Admit Stat Ordered Studies 06/04/21 16:42 CT abd pelvis IV con only Stat IMPRESSION: 1. Findings consistent with a moderate grade small bowel obstruction. Multiple loops of mildly dilated fluid-filled mid small bowel with decompressed distal small bowel. Adjacent transition points for several segments of small bowel. Although not highly suspicious at this time, this configuration could increase risk for a closed loop obstruction and therefore close clinical follow-up is recommended. Moderately distended fluid-filled stomach. Nasogastric tube insertion might be considered. 2. Apparent distal rectal wall thickening. This is likely due to underdistention. A mucosal lesion is considered less likely but cannot be completely excluded. Nonemergent colonoscopy is suggested. Hospital Course (1) Small bowel obstruction: Britta Green is an 80-year-old female admitted to [facility] from June 04 to 2021 due to abdominal pain. She was diagnosed with moderate grade small bowel obstruction on CT. This was treated conservatively with NPO, NB tube and IV fluids. She is now doing well on a soft diet and recommend continuing this on discharge. She will advance her diet back to low fiber diet as tolerated tomorrow. Recommend she continues laxatives with MiraLAX and milk of magnesia as needed to aim for a bowel movement every 1 to 2 days. Due to rectal wall thickening seen on CT recommend nonurgent colonoscopy to be arranged through her primary care physician. She was started on potassium supplement due to persistent hypokalemia. She was also restarted on her hydrochlorothiazide on discharge therefore recommend repeating her potassium in approximately 1 to 2 weeks with her primary care physician. Potassium 3.6 mmol/L on day of discharge. (2) Diabetes mellitus: (3) Hypertension: (4) Asthma: (5) Anxiety: (6) Left knee DJD: Total Time Total Time Spent Total Time Spent (In Minutes): 40 Discharge Plan Discharge Items Patient Disposition: Home - Self-Care Reason For Visit: SBO, NPO Discharge Diagnosis: Small bowel obstruction Activity: Resume your previous activity Non-emergency contact: Primary Care Provider Call non-emergency contact if: you have any medication questions and your symptoms worsen Follow-up/Referrals: Jhony Wolf MD [Primary Care Provider] - Diet: Low Fiber Diet Texture: Mechanical soft (ground) Addtl Attending Provider Instructions: You were admitted to [facility] from June 04 to 2021 due to abdominal pain. You were diagnosed with moderate grade small bowel obstruction on CT. This was treated conservatively with nothing to eat or drink, nasogastric tube and intravenous fluids. You are now doing well on a soft diet and recommend continuing this on discharge. Please advance diet as tolerated tomorrow back to a normal diet with low fiber. Please continue laxatives to aim for a bowel movement every 1 to 2 days using either MiraLAX, milk of magnesia or combination of the 2. Your CT also showed distal rectal wall thickening. Recommend nonurgent colonoscopy which can be arranged through your primary care physician. You have been started on potassium supplement due to persistent hyperkalemia (Low potassium) during your admission. Please follow-up with your primary care physician in the next week for repeat labs with a potassium level to see if you need ongoing supplementation. Potassium 3.6 mmol/L (normal) on day of discharge. Pending Studies at Discharge: No Stand-Alone Forms: My [facility], Smoking Cessation Medications and DC Order Prescriptions: New magnesium hydroxide [Milk of Magnesia] 400 mg/5 mL Suspension 30 ml PO Q6H PRN (Reason: constipation) Qty: 355 RF: 0 potassium chloride 20 mEq tablet extended release 20 meq PO DAILY Qty: 14 RF: 0 Continued amoxicillin 500 mg tablet 2,000 mg PO ONCE Qty: 4 RF: 3 trazodone 50 mg tablet 25 mg PO HS Qty: 30 RF: 5 Hold Instructions: not taking meloxicam 15 mg tablet 15 mg PO QAM Qty: 90 RF: 3 Flovent HFA 110 mcg/actuation HFA aerosol inhaler 1 puff INH BID PRN (Reason: wheezing) Qty: 12 RF: 3 albuterol sulfate [ProAir HFA] 90 mcg/actuation HFA aerosol inhaler 2 puff INH Q6H PRN (Reason: shortness of breath or wheezing) Qty: 8 RF: 3 (DME) OneTouch Ultra Test Strip See Rx Instructions .Route Qty: 100 RF: 5 (DME) blood-glucose meter [OneTouch Verio Meter] Misc See Rx Instructions .Route Qty: 1 RF: 0 (DME) lancets [OneTouch UltraSoft Lancets] Misc See Rx Instructions .Route Qty: 100 RF: 5 docusate sodium [Stool Softener] 100 mg Capsule 100 mg PO DAILY RF: 0 amlodipine 5 mg tablet 5 mg PO QAM RF: 0 gabapentin 100 mg capsule 100 mg PO HS RF: 0 metoprolol succinate 25 mg tablet extended release 24 hr 25 mg PO QAM RF: 0 losartan-hydrochlorothiazide 50-12.5 mg tablet 1 tab PO BID RF: 0 Changed polyethylene glycol 3350 [Miralax] 17 gram/dose Powder 17 g PO TID PRN (Reason: Constipation) Qty: 0 RF: 0 Discharge Orders: Discharge Order (Routine); Ordered 06/10/21 Ordered By: Osmar Robertson/Other Patient Handouts: Small Bowel Obstruction, Managing Type 2 Diabetes Admission Data Admit Date/Time: 06/04/21 19:05 Attending Provider: Osmar Garnica Admit Provider: Phi Elizabeth Primary Care Provider: Jhony Wolf Other Providers: Guru Brasher ; Shamar De La Rosa ; Phi Elizabeth Other Interventions: Discharge Summary Assessment (RN) Last Done: 06/10/21 14:36 Coding Level of Care Code D/C DAY MANAGEMENT >30 MINS Diagnoses Small bowel obstruction K56.609 Diabetes mellitus E11.9 Hypertension I10 Asthma J45.909 Anxiety F41.9 Left knee DJD M17.12
== END 2021-06-10 17:15 | disposition home or self-care (01) | DRG 390 ==
LOC: ED 16:36 → 2E 19:05 → SUATTDRO 19:05 → 2E 20:14 → 2N 06-05 18:56

== ENCOUNTER 2021-11-16 02:43 | Inpatient (IN) ==
[2021-11-16] MEDS ORDERED: HYDROmorphone INJ 0.5 MG/0.5 ML SYR IV STA ×2 (03:16→04:30)
[2021-11-16] MEDS ORDERED: ONDANSETRON INJ 2 MG/ML 2 ML VIAL IV STA ×2 (03:16→04:47)
[2021-11-16] MEDS ORDERED: SODIUM CHLORIDE 0.9% 500 ML IV ONE (03:16)
--- NOTE | 2021-11-16 03:21 | Emergency Department Note ---
Impression & Plan Small bowel obstruction Admit to the hospitalist ED Provider Note NAME: HORACE MARTIN AGE: 80 SEX: F ARRIVES VIA: Ambulance INFORMANT: Patient and her family ED PROVIDER(S): Beverley Turner DO CHIEF COMPLAINT: Left upper quadrant abdominal pain PLAN: Disposition: Admit to the hospitalist Condition: Fair MEDICAL DECISION MAKING: This is an 80-year-old female patient with a history of previous small bowel obstruction who presents to the emergency department with left upper quadrant abdominal pain and nausea. Patient believes the symptoms are similar to previous obstructions. CT scan of the abdomen and pelvis confirmed there is a small bowel obstruction. An NG tube was placed and the patient was placed on IV crystalloid therapy. I discussed the case with the hospitalist and they will evaluate for further management. Patient was also noted to be hyponatremic. Triage Nursing notes reviewed and agree with them. Additional history obtained from the patient's family is at the bedside Prior medical records reviewed Vital Signs: reviewed and remarkable for hypertension Differential diagnosis: Small bowel obstruction, constipation, perforated viscus, gastritis ER treatment provided: IV Dilaudid x2 IV Zofran x2 IV normal saline bolus and drip NG tube placement Diagnostics interpreted by me: Cardiac Monitoring: Normal sinus rhythm at 77 Laboratory studies: See below Imaging studies: As per radiology report HPI: 80/F arrives for evaluation of abdominal pain. Around 6 PM this evening, the patient developed left upper quadrant abdominal pain and nausea. She had one episode of belching which was sour taste. She is concerned that she may have a bowel obstruction again. ROS: See above HPI for pertinent positives & negatives. A total of 10 systems reviewed and were otherwise negative. PAST MEDICAL HISTORY:See Below PAST SURGICAL HISTORY:See Below FAMILY HISTORY:See Below SOCIAL HISTORY:See Below HOME MEDICATIONS:See list ALLERGIES:See list VITALS:See Below PHYSICAL EXAMINATION: HEENT: Head - normocephalic and atraumatic. Pupils are equal, round, and reactive to light. Extraocular eye muscles are intact, and sclera are anicteric. Nose - moist nasal mucosa without discharge. Mouth - moist buccal mucosa. Oropharynx is nonerythematous and there is no tonsillar exudate or edema noted. Neck: Supple; no cervical lymphadenopathy Heart: Regular rate and rhythm. There is a normal S1 and S2 with no murmurs, clicks, or gallops appreciated. Lungs: Clear to auscultation bilaterally with no wheezes, rales, or rhonchi. Abdomen: Soft, exquisitely tender to palpation in the left upper quadrant and epigastrium. The rest of the abdomen is nondistended with high-pitched bowel sounds. There are no palpable pulsatile masses or hepatosplenomegaly. There is no guarding, rigidity, or rebound noted. Extremities: No evidence of cyanosis, clubbing, or edema. There are easily palpable peripheral pulses. Skin: warm and dry with good turgor and no rashes. ED COURSE: Times/Reassessments: 300 the patient was evaluated in room A2. An order was placed for continuous cardiac monitoring. The patient was in a normal sinus rhythm at a rate of 77. A complete history and physical was performed. An IV lock was initiated and labs were drawn as above. The patient was medicated with 0.25 mg of IV Dilaudid and 4 mg of IV Zofran. She was bolused with IV normal saline solution. She will go for CT scan of the abdomen/pelvis. Upon returning from radiology, the patient had persistent abdominal discomfort was given 0.5 mg of IV Dilaudid. She then developed worsening nausea and was given a second dose of IV Zofran. Upon repeat evaluation by me, she was much more comfortable. I reviewed the results of the laboratory studies and the CT scan with the patient and her family. She will require an NG tube placement. I discussed the case with the hospitalist and they will evaluate for further management. Beverley Turner DO Past Med/Surg History Medical History Actinic cheilitis Actinic keratosis Anxiety Asthma stable-LAST RESCUE INHALER USE 1 MONTH AGO Basal cell carcinoma Bladder prolapse Diabetes PCP has been monitoring. A1C has crept up to 6.8%, no medication NOW, just dietary modifications. History of basal cell carcinoma History of COVID-19 DX'D 11/2020 WHILE AT [facility] AFTER STROKE-HEADACHE, SINUS SYMPTOMS- RESOLVED History of melanoma History of squamous cell carcinoma Hypertension Left knee DJD Osteoarthritis SBO (small bowel obstruction) 05/2021- [facility] ADMISSION-NO SURGERY Stroke [id number] BOTH EYES-VISION REMAINS IMPAIRED-DOES NOT DRIVE, SHORT MEMORY IMPAIRMENT-NO ISSUES SINCE Visual loss Surgical History H/O cataract removal with insertion of prosthetic lens History of basal cell carcinoma (BCC) excision History of colonoscopy History of melanoma excision History of right knee joint replacement Right TKA: 09/21/14: SAB x1 attempt at L3/L4 + PNB at [facility] History of squamous cell carcinoma excision History of tonsillectomy History of total abdominal hysterectomy and bilateral salpingo-oophorectomy History of total knee replacement LEFT History of tubal ligation Nausea and vomiting after administration of anesthetic agent Status post right knee replacement Family History Father Prostate cancer Sister Family history of reaction to anesthesia PONV Other No family history of adverse response to anesthesia Denies family history of Ovarian cancer Diabetes Dyslipidemia Myocardial infarction Breast cancer COPD (chronic obstructive pulmonary disease) Colorectal cancer Social History Smoking Status: Never smoker Second Hand Exposure: No; Hx Alcohol Use: No Hx Substance Use: No Preferred Language: Yoruba Communication Ability: Effective Hearing Ability: Normal Tube Drawer Required: No Beliefs That Will Affect Care: Baptism Baptism Beliefs: JAINISM marital status: Current Living Situation: Spouse current occupational status: retired Feels Safe at Home: Yes Childhood Exposure to Second-Hand Smoke: Yes caffeine: Yes during the past year weight has: remained stable Dental Care, Regularly: Yes Seatbelt Use: always Sunscreen Use: Yes Assistive Devices: Cane Allergies Allergies Allergy/AdvReac Type Severity Reaction Status Date / Time adhesive Allergy Unknown rash, Verified 11/16/21 03:04 redness,ITCHY bacitracin [From Polysporin] Allergy Unknown ITCHY RASH Verified 11/16/21 03:04 codeine Allergy Unknown NAUSEA AND Verified 11/16/21 03:04 VOMITING latex Allergy Unknown skin Verified 11/16/21 03:04 redness meperidine [From Demerol] Allergy Unknown NAUSEA AND Verified 11/16/21 03:04 VOMITING morphine Allergy Unknown NAUSEA Verified 11/16/21 03:04 VOMITING oxycodone [From Percocet] Allergy Unknown NAUSEA-PT Verified 11/16/21 03:04 UNSURE polymyxin B [From Polysporin] Allergy Unknown ITCHY RASH Verified 11/16/21 03:04 lisinopril AdvReac Unknown cough Verified 11/16/21 03:04 Home Meds Home Medications Medication Instructions Recorded Confirmed docusate sodium 100 mg capsule 100 mg PO QPM 12/22/19 11/16/21 (Stool Softener) amlodipine 5 mg tablet 5 mg PO QAM 06/04/21 11/16/21 gabapentin 100 mg capsule 100 mg PO HS 06/04/21 11/16/21 losartan 50 mg-hydrochlorothiazide 1 tab PO BID 06/04/21 11/16/21 12.5 mg tablet metoprolol succinate 25 mg 25 mg PO QAM 06/04/21 11/16/21 tablet,extended release 24 hr mgytqfwodr-xohuteimabium-dizmwexe 1 cap PO Q4H PRN Headache 06/15/21 11/16/21 50 mg-300 mg-40 mg capsule (Fioricet) fluticasone propionate 110 1 puff inhalation BID PRN Wheezing 06/15/21 11/16/21 mcg/actuation HFA aerosol inhaler (Flovent HFA) psyllium husk 3.4 gram/5.4 gram 1 tbsp PO DAILY 09/26/21 11/16/21 oral powder (Metamucil) camphor-menthol 0.2 %-3.5 % 1 applic topical DIRECTED PRN 11/16/21 11/16/21 topical gel Pain Previous Rx's Medication Instructions Recorded trazodone 50 mg tablet 25 mg PO HS #30 tabs 06/09/20 albuterol sulfate 90 mcg/actuation 2 puff inhalation Q6H PRN 01/06/21 aerosol inhaler (ProAir HFA) shortness of breath or wheezing #8 grams blood sugar diagnostic (OneTouch #100 ea 01/12/21 Ultra Test strips) blood-glucose meter (OneTouch #1 ea 01/12/21 Verio Meter) lancets (OneTouch UltraSoft #100 ea 01/12/21 Lancets) polyethylene glycol 3350 17 17 g PO TID PRN Constipation #0 06/10/21 gram/dose oral powder (Miralax) grams linaclotide 145 mcg capsule 145 mcg PO QAM #90 caps 09/28/21 (Linzess) Results & Data (ED) Vital Signs Vital Signs - 24 hr 11/16/21 02:35 11/16/21 04:04 11/16/21 04:48 Temperature 36.6 C Temperature Source Oral Pulse Rate 77 89 58 L Pulse Rate [Apical] Pulse Rhythm Regular Pulse Strength Normal Respiratory Rate 18 21 14 Respiratory Effort / Characteristics Non-Labored Respiratory Depth Normal Respiratory Pattern Regular Blood Pressure 187/74 H 180/93 H 89/51 L Blood Pressure [Left Arm] Blood Pressure Mean 111 122 63 Blood Pressure Mean [Left Arm] Pulse Oximetry 99 98 97 Oxygen Delivery Method Room Air Room Air Room Air Sepsis Recent Fever Within 48 Hours No Sepsis New/Unexplained Change in Mental Status No Sepsis Action Taken by Nursing No Action Required 11/16/21 05:00 11/16/21 04:52 11/16/21 06:00 Temperature Temperature Source Pulse Rate 66 75 Pulse Rate [Apical] 69 Pulse Rhythm Pulse Strength Respiratory Rate 16 14 17 Respiratory Effort / Characteristics Non-Labored Spontaneous Respiratory Depth Normal Respiratory Pattern Regular Blood Pressure 121/64 169/82 H Blood Pressure [Left Arm] 141/70 H Blood Pressure Mean 83 111 Blood Pressure Mean [Left Arm] 93 Pulse Oximetry 96 97 100 Oxygen Delivery Method Room Air Room Air Room Air Sepsis Recent Fever Within 48 Hours Sepsis New/Unexplained Change in Mental Status Sepsis Action Taken by Nursing Laboratory Data Result diagrams: 11/16/21 03:00 11/16/21 03:00 Lab Results 11/16/21 11/16/21 11/16/21 Range/Units 03:00 03:00 05:52 WBC 8.18 (4.8-10.8) K/ul RBC 4.26 (3.93-5.22) M/uL Hgb 13.3 (12.0-16.0) g/dl Hct 38.1 (34.1-44.9) % MCV 89.4 (80.0-100.0) fL MCH 31.2 (25.0-34.0) pg MCHC 34.9 (32.0-36.0) g/dL RDW Std Deviation 42.6 (36.4-46.3) fL RDW Coeff of Belkis 13.1 (11.5-14.5) % Plt Count 412 H (130-400) K/uL MPV 8.3 L (9.4-12.3) fL Immature Gran % (Auto) 0.2 % Neut % (Auto) 77.9 % Lymph % (Auto) 13.4 % [place] % (Auto) 6.4 % Eos % (Auto) 1.5 % Baso % (Auto) 0.6 % Neut # (Auto) 6.37 (1.4-6.5) K/uL Lymph # (Auto) 1.10 L (1.2-3.4) K/uL [place] # (Auto) 0.52 (0.24-0.82) K/uL Eos # (Auto) 0.12 (0-0.50) K/uL Baso # (Auto) 0.05 (0-0.2) K/uL Immature Gran # (Auto) 0.02 (0.00-0.02) K/uL Sodium 129 L (136-145) mmol/L Potassium 3.7 (3.5-5.1) mmol/L Chloride 93 L (98-107) mmol/L Carbon Dioxide 26 (21-32) mmol/L Anion Gap 10 (3-11) BUN 12 (6-23) mg/dl Creatinine 0.73 (0.6-1.2) mg/dl Est Cr Clr Drug Dosing 44.9 ml/min Est GFR ( Amer) 88.9 ml/min Est GFR (Non-Af Amer) 76.7 ml/min BUN/Creatinine Ratio 16.4 (10-20) Glucose 158 H (70-99(Fasting)) mg/dl Calcium 9.7 (8.5-10.1) mg/dl Total Bilirubin 0.4 (0.2-1.0) mg/dl AST 17 (13-39) U/L ALT 18 (7-52) U/L Alkaline Phosphatase 111 H (34-104) U/L Total Protein 7.0 (6.0-8.3) gm/dl Albumin 4.4 (3.4-5.0) gm/dl Globulin 2.6 (2.5-4.0) gm/dl Albumin/Globulin Ratio 1.7 (0.9-2) Lipase 17 (11-82) U/L SARS-CoV-2, RNA, NAAT NEGATIVE (NEGATIVE) Administered Medications Amlodipine Besylate (Amlodipine Besylate 5 Mg Tab) [facility] [place] 12/16/21 11:29 Last Admin: 11/16/21 12:08 Dose: 5 mg Documented By: BENJA HCTZ/Losartan Potassium (Losartan/Hctz 50/12.5mg Tab) 1 tab PO BID LICO Stop: 12/16/21 11:29 Last Admin: 11/16/21 12:08 Dose: 1 tab Documented By: BENJA Hydromorphone HCl (Hydromorphone Inj 0.5 Mg/0.5 Ml Syr) 0.5 mg IV Q4H PRN PRN Reason: Pain Stop: 11/30/21 11:12 Last Admin: 11/16/21 12:09 Dose: 0.5 mg Documented By: BENJA Lactated Ringer's (Lr) 1,000 mls @ 80 mls/hr IV .[id number] LICO Stop: 11/17/21 12:12 Last Admin: 11/16/21 12:08 Dose: 80 mls/hr Documented By: BENJA Metoprolol Succinate (Metoprolol Succ 25mg Ext Rel Tab) 25 mg PO QAM LICO Stop: 12/16/21 11:29 Last Admin: 11/16/21 12:08 Dose: 25 mg Documented By: BENJA Discontinued Medications Hydromorphone HCl (Hydromorphone Inj 0.5 Mg/0.5 Ml Syr) 0.25 mg IV NOW STA Stop: 11/16/21 03:17 Last Admin: 11/16/21 03:24 Dose: 0.25 mg Documented By: BENI Hydromorphone HCl (Hydromorphone Inj 0.5 Mg/0.5 Ml Syr) 0.5 mg IV NOW STA Stop: 11/16/21 04:31 Last Admin: 11/16/21 04:35 Dose: 0.5 mg Documented By: BENI Sodium Chloride (Nss) 500 mls @ 999 mls/hr IV .Q31M ONE Stop: 11/16/21 03:46 Last Infusion: 11/16/21 03:55 Dose: 0 mls/hr Documented By: Admin: 11/16/21 03:24 Dose: 999 mls/hr Documented By: BENI Sodium Chloride (Nss) 500 mls @ 125 mls/hr IV .Q4H LICO Stop: 11/17/21 03:59 Last Infusion: 11/16/21 11:26 Dose: 0 mls/hr Documented By: Admin: 11/16/21 08:31 Dose: 125 mls/hr Documented By: Infusion: 11/16/21 08:30 Dose: 0 mls/hr Documented By: Admin: 11/16/21 04:05 Dose: 125 mls/hr Documented By: BENI Ioversol (Ioversol 350 Mg 100ml Prefilled Syringe) 94 ml IV ONCE ONE Stop: 11/16/21 04:10 Last Admin: 11/16/21 04:11 Dose: 94 ml Documented By: HAY Lorazepam (Lorazepam 2 Mg/2 Ml Syr) 0.5 mg IV NOW STA; Protocol Stop: 11/16/21 06:04 Last Admin: 11/16/21 06:13 Dose: 0.5 mg Documented By: BENI Ondansetron HCl (Ondansetron Inj 2 Mg/Ml 2 Ml Vial) 4 mg IV NOW STA Stop: 11/16/21 03:17 Last Admin: 11/16/21 03:24 Dose: 4 mg Documented By: BENI Ondansetron HCl (Ondansetron Inj 2 Mg/Ml 2 Ml Vial) 4 mg IV NOW STA Stop: 11/16/21 04:48 Last Admin: 11/16/21 04:51 Dose: 4 mg Documented By: BENI Imaging Data Radiologist's Impression: Abdomen/Pelvis CT 11/16/21 03:16 CT OF THE ABDOMEN AND PELVIS WITH CONTRAST CLINICAL HISTORY: Abdominal pain. Evaluate for bowel obstruction. COMPARISON STUDY: KUB June 08, 2021. CT of the abdomen and pelvis June 04, 2021. TECHNIQUE: Following IV administration of 94 mL of Optiray, axial images of the abdomen and pelvis were obtained from the lung bases to the proximal femurs. Images were reviewed in the axial, sagittal, and coronal planes. IV contrast was administered without complication. Automated exposure control was utilized for the study. A dose lowering technique was utilized adhering to the principles of ALARA. CT DOSE: 254.37 mGy.cm FINDINGS: Lung bases are unremarkable. No pneumatosis, free air or portal venous gas is present. There is a small hiatal hernia. Liver, spleen, adrenal glands, kidneys and pancreas are unremarkable. Moderate amount stool within the distal sigmoid colon and proximal rectum is noted. There is colonic diverticulosis without evidence for acute diverticulitis. There are multiple loops of mildly dilated fluid-filled small bowel. Several transition points in close proximity to one another within the left lower quadrant are noted, best shown on axial image 235 of 411. The distal small bowel is decompressed. There is mild adjacent mesenteric stranding and trace ascites. No lymphadenopathy is present. No acute fracture or suspicious lesion within the visualized skeletal structures is present. IMPRESSION: Findings consistent with a small bowel obstruction, as described above. Several apparent transition points in close proximity to one another within the left lower quadrant, as described above. Mild associated mesenteric stranding and trace ascites. ACT 112: Negative or not required by law. Electronically signed by: Flex Alberto M.D. 11/16/2021 8:58 AM Discharge Plan Visit Data Chief Complaint: Abdominal Pain Stated Complaint: ab pain ED Provider: Beverley Turner Discharge Problem: Small bowel obstruction Patient Disposition: Admitted As Inpatient Discharge Instructions Interventions: ED Discharge Assessment Last Done: 11/16/21 11:07
[2021-11-16 03:27] LABS: Basophils # (auto) 0.05 K/uL (0-0.2); Basophils % (auto) 0.6 %; Eosinophils # (auto) 0.12 K/uL (0-0.50); Eosinophils % (auto) 1.5 %; Hematocrit (blood only) 38.1 % (34.1-44.9); Hemoglobin 13.3 g/dl (12.0-16.0); Immature Granulocytes # (auto) 0.02 K/uL (0.00-0.02); Immature Granulocytes % (auto) 0.2 %; Lymphocytes % (auto) 13.4 %; Mean Corpuscular Hemoglobin 31.2 pg (25.0-34.0); Mean Corpuscular Hgb Conc 34.9 g/dL (32.0-36.0); Mean Corpuscular Volume 89.4 fL (80.0-100.0); Mean Platelet Volume 8.3 fL (9.4-12.3); Monocytes # (auto) 0.52 K/uL (0.24-0.82); Monocytes % (auto) 6.4 %; Neutrophils # (auto) 6.37 K/uL (1.4-6.5); Neutrophils % (auto) 77.9 %; Platelet Count 412 K/uL (130-400); RDW Coefficient of Variation 13.1 % (11.5-14.5); RDW Standard Deviation 42.6 fL (36.4-46.3); Red Blood Count 4.26 M/uL (3.93-5.22); White Blood Count 8.18 K/ul (4.8-10.8)
[2021-11-16 03:37] LABS: Albumin Globulin Ratio 1.7 (0.9-2); Albumin Level 4.4 gm/dl (3.4-5.0); BUN Creatinine Ratio 16.4 (10-20); Bilirubin,Total 0.4 mg/dl (0.2-1.0); Calcium 9.7 mg/dl (8.5-10.1); Creatinine Clr Calc Pharmacy 44.9 ml/min; Est GFR (African American) 88.9 ml/min; Est GFR (Non-African American) 76.7 ml/min; Globulin 2.6 gm/dl (2.5-4.0); Potassium 3.7 mmol/L (3.5-5.1)
[2021-11-16] MEDS: SODIUM CHLORIDE 0.9% 500 ML IV SCH ×2 (04:05→08:31)
[2021-11-16] MEDS ORDERED: IOVERSOL 350 MG 100mL Prefilled Syringe IV ONE (04:09)
[2021-11-16] MEDS ORDERED: LORazepam 2 MG/2 ML SYR IV STA (06:03)
--- NOTE | 2021-11-16 06:21 | History & Physical Report ---
Date of Service November 16, 2021 Assessment & Plan (1) SBO (small bowel obstruction): Plan: 80yo female with prior SBO in May 2021 presenting with abdominal pain, distention, no BM x 3 days. Found to have SBO. Patient is hemodynamically stable, non-toxic in appearance. She does have some abdominal bloating and ongoing nausea. -Admit to medical with telemetry -Place NGT to LIWS -Zofran PRN nausea -Dilaudid PRN pain -LR at 80mL/hr x 2 liters -Dulcolax 10mg MT daily -General Surgery assessment appreciated (2) Hypertension: Plan: Chronic. Blood pressure adequate at present -Continue Losartan/HCTZ -Continue Amlodipine -Continue metoprolol -Monitor (3) Asthma: Plan: Chronic. Well controlled. No cough, SOB or wheeze -Continue Flovent PRN -Albuterol PRN (4) Anxiety: Plan: Chronic. Ativan 0.5mg ordered in ER -Monitor -Trazodone qHS for insomnia (5) Diabetes mellitus: Plan: Chronic. Patient currently not on any medications. Last HgbA1C in May 2021 = 6.6 -Monitor fingersticks -Continue Gabapentin F/E/N - LR at 80mL/hr x 2 liters, monitor electrolytes and replete as needed, NPO Ppx - SCDs Code -Full Dispo - Admit to medical with telemetry History of Present Illness Chief Complaint: abdominal pain Primary Care Provider: Jhony Wolf MD Britta Green is an 80yo female with history of DM, anxiety and HTN presenting with SBO. Patient developed fairly sudden onset of mid and LLQ abdominal pain on 11/15/21 evening. She had abdominal bloating and nausea as well. She passed some gas the morning of 11/15/21 but has not had a BM for over 3 days. No additional complaints - she denies chest pain, cough, SOB, fever or chills. Patient had an SBO in May 2021 which resolved with NGT and conservative measures. She was hospitalized for several days. No surgical intervention needed. She followed up with Dr. Yoo and had a colonoscopy performed on 07/06/21 which revealed 2-5 polyps which were removed, diverticulosis and non- bleeding internal hemorrhoids. Patient was continued on stool softeners and sta rted on Linzess. In the ER she is afebrile, HD stable, NAD Er Course: Dilaudid, Zofran, NSS, Ativan Allergies Allergy/AdvReac Type Severity Reaction Status Date / Time adhesive Allergy Unknown rash, Verified 11/16/21 03:04 redness,ITCHY bacitracin [From Polysporin] Allergy Unknown ITCHY RASH Verified 11/16/21 03:04 codeine Allergy Unknown NAUSEA AND Verified 11/16/21 03:04 VOMITING latex Allergy Unknown skin Verified 11/16/21 03:04 redness meperidine [From Demerol] Allergy Unknown NAUSEA AND Verified 11/16/21 03:04 VOMITING morphine Allergy Unknown NAUSEA Verified 11/16/21 03:04 VOMITING oxycodone [From Percocet] Allergy Unknown NAUSEA-PT Verified 11/16/21 03:04 UNSURE polymyxin B [From Polysporin] Allergy Unknown ITCHY RASH Verified 11/16/21 03:04 lisinopril AdvReac Unknown cough Verified 11/16/21 03:04 Home Medications Medication Instructions Recorded Confirmed Type docusate sodium 100 mg capsule 100 mg PO QPM 12/22/19 11/16/21 History (Stool Softener) trazodone 50 mg tablet 25 mg PO HS #30 tabs 06/09/20 11/16/21 Rx albuterol sulfate 90 mcg/actuation 2 puff inhalation Q6H PRN 01/06/21 11/16/21 Rx aerosol inhaler (ProAir HFA) shortness of breath or wheezing #8 grams blood sugar diagnostic (OneTouch #100 ea 01/12/21 11/03/21 Rx Ultra Test strips) blood-glucose meter (OneTouch #1 ea 01/12/21 11/03/21 Rx Verio Meter) lancets (OneTouch UltraSoft #100 ea 01/12/21 11/03/21 Rx Lancets) amlodipine 5 mg tablet 5 mg PO QAM 06/04/21 11/16/21 History gabapentin 100 mg capsule 100 mg PO HS 06/04/21 11/16/21 History losartan 50 mg-hydrochlorothiazide 1 tab PO BID 06/04/21 11/16/21 History 12.5 mg tablet metoprolol succinate 25 mg 25 mg PO QAM 06/04/21 11/16/21 History tablet,extended release 24 hr polyethylene glycol 3350 17 17 g PO TID PRN Constipation #0 06/10/21 11/16/21 Rx gram/dose oral powder (Miralax) grams bzdbzzbvju-rmbudczrullne-cviurtfc 1 cap PO Q4H PRN Headache 06/15/21 11/16/21 History 50 mg-300 mg-40 mg capsule (Fioricet) fluticasone propionate 110 1 puff inhalation BID PRN Wheezing 06/15/21 11/16/21 History mcg/actuation HFA aerosol inhaler (Flovent HFA) psyllium husk 3.4 gram/5.4 gram 1 tbsp PO DAILY 09/26/21 11/16/21 History oral powder (Metamucil) linaclotide 145 mcg capsule 145 mcg PO QAM #90 caps 09/28/21 11/16/21 Rx (Linzess) camphor-menthol 0.2 %-3.5 % 1 applic topical DIRECTED PRN 11/16/21 11/16/21 History topical gel Pain Past Med/Surg History Medical History Actinic cheilitis Actinic keratosis Anxiety Asthma stable-LAST RESCUE INHALER USE 1 MONTH AGO Basal cell carcinoma Bladder prolapse Diabetes PCP has been monitoring. A1C has crept up to 6.8%, no medication NOW, just dietary modifications. History of basal cell carcinoma History of COVID-19 DX'D 11/2020 WHILE AT [facility] AFTER STROKE-HEADACHE, SINUS SYMPTOMS-R ESOLVED History of melanoma History of squamous cell carcinoma Hypertension Left knee DJD Osteoarthritis SBO (small bowel obstruction) 05/2021- [facility] ADMISSION-NO SURGERY Stroke [id number] BOTH EYES-VISION REMAINS IMPAIRED-DOES NOT DRIVE, SHORT MEMORY IMPAIRMENT-NO ISSUES SINCE Visual loss Surgical History H/O cataract removal with insertion of prosthetic lens History of basal cell carcinoma (BCC) excision History of colonoscopy History of melanoma excision History of right knee joint replacement Right TKA: 09/21/14: SAB x1 attempt at L3/L4 + PNB at [facility] History of squamous cell carcinoma excision History of tonsillectomy History of total abdominal hysterectomy and bilateral salpingo-oophorectomy History of total knee replacement LEFT History of tubal ligation Nausea and vomiting after administration of anesthetic agent Status post right knee replacement Family History Father Prostate cancer Sister Family history of reaction to anesthesia PONV Other No family history of adverse response to anesthesia Denies family history of Ovarian cancer Diabetes Dyslipidemia Myocardial infarction Breast cancer COPD (chronic obstructive pulmonary disease) Colorectal cancer Social History Smoking Status: Never smoker Second Hand Exposure: No; Hx Alcohol Use: No Hx Substance Use: No Preferred Language: Cambodian Communication Ability: Effective Hearing Ability: Normal 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 Beliefs That Will Affect Care: Church Church Beliefs: [employer] marital status: Current Living Situation: Spouse current occupational status: retired Feels Safe at Home: Yes Childhood Exposure to Second-Hand Smoke: Yes caffeine: Yes during the past year weight has: remained stable Dental Care, Regularly: Yes Seatbelt Use: always Sunscreen Use: Yes Assistive Devices: Glasses Review of Systems Review of Systems: All systems reviewed & are unremarkable except as noted in HPI & below Physical Exam Physical Exam: General: patient resting comfortably, NAD, non-toxic in appearance, AA&O x 4 Skin: warm, dry, intact, no rashes or lesions HEENT: NC/AT, PERRL, EOMI, anicteric sclera, conjunctiva without injection, ex ternal ear normal to inspection and nontender, nares patent, moist mucus membranes, dentition intact, no oropharyngeal lesions, neck supple, trachea midline, no LAD, no thyromegaly, no JVD Heart: +S1/S2, regular, no m/r/g Lungs: equal air entry bilaterally, no rales/rhonchi/wheezes Abd: +BS, soft, mild distention, tender to palpation in mid-abdomen and LLQ with no rebound or guarding, diminished bowel sounds, no masses/organomegaly/ascites Ext: warm, 2+ pulses in UE/LE bilaterally, no clubbing/cyanosis or edema Neuro: nonfocal, patient AA&O x 4, speech intact, no facial droop, moving all e xtremities on command with equal strength 5/5 Results & Data Results & Data ([facility]) Vital Signs (Past 12 Hours) Vital Signs Temp Pulse Pulse Resp BP BP Pulse Ox 11/16/21 04:52 66 14 121/64 97 11/16/21 05:00 69 16 141/70 H 96 11/16/21 04:48 58 L 14 89/51 L 97 11/16/21 04:04 89 21 180/93 H 98 11/16/21 02:35 36.6 C 77 18 187/74 H 99 O2 Del Method 11/16/21 04:52 Room Air 11/16/21 05:00 Room Air 11/16/21 04:48 Room Air 11/16/21 04:04 Room Air 11/16/21 02:35 Room Air Laboratory Results Laboratory Results WBC 8.18 K/ul (4.8-10.8) 11/16/21 03:00 RBC 4.26 M/uL (3.93-5.22) 11/16/21 03:00 Hgb 13.3 g/dl (12.0-16.0) 11/16/21 03:00 Hct 38.1 % (34.1-44.9) 11/16/21 03:00 MCV 89.4 fL (80.0-100.0) 11/16/21 03:00 MCH 31.2 pg (25.0-34.0) 11/16/21 03:00 MCHC 34.9 g/dL (32.0-36.0) 11/16/21 03:00 RDW Std Deviation 42.6 fL (36.4-46.3) 11/16/21 03:00 RDW Coeff of Belkis 13.1 % (11.5-14.5) 11/16/21 03:00 Plt Count 412 K/uL (130-400) H 11/16/21 03:00 MPV 8.3 fL (9.4-12.3) L 11/16/21 03:00 Immature Gran % (Auto) 0.2 % 11/16/21 03:00 Neut % (Auto) 77.9 % 11/16/21 03:00 Lymph % (Auto) 13.4 % 11/16/21 03:00 [place] % (Auto) 6.4 % 11/16/21 03:00 Eos % (Auto) 1.5 % 11/16/21 03:00 Baso % (Auto) 0.6 % 11/16/21 03:00 Neut # (Auto) 6.37 K/uL (1.4-6.5) 11/16/21 03:00 Lymph # (Auto) 1.10 K/uL (1.2-3.4) L 11/16/21 03:00 [place] # (Auto) 0.52 K/uL (0.24-0.82) 11/16/21 03:00 Eos # (Auto) 0.12 K/uL (0-0.50) 11/16/21 03:00 Baso # (Auto) 0.05 K/uL (0-0.2) 11/16/21 03:00 Immature Gran # (Auto) 0.02 K/uL (0.00-0.02) 11/16/21 03:00 Sodium 129 mmol/L (136-145) L 11/16/21 03:00 Potassium 3.7 mmol/L (3.5-5.1) 11/16/21 03:00 Chloride 93 mmol/L (98-107) L 11/16/21 03:00 Carbon Dioxide 26 mmol/L (21-32) 11/16/21 03:00 Anion Gap 10 (3-11) 11/16/21 03:00 BUN 12 mg/dl (6-23) 11/16/21 03:00 Creatinine 0.73 mg/dl (0.6-1.2) 11/16/21 03:00 Est Cr Clr Drug Dosing 44.9 ml/min 11/16/21 03:00 Est GFR ( Amer) 88.9 ml/min 11/16/21 03:00 Est GFR (Non-Af Amer) 76.7 ml/min 11/16/21 03:00 BUN/Creatinine Ratio 16.4 (10-20) 11/16/21 03:00 Glucose 158 mg/dl (70-99(Fasting)) H 11/16/21 03:00 Calcium 9.7 mg/dl (8.5-10.1) 11/16/21 03:00 Total Bilirubin 0.4 mg/dl (0.2-1.0) 11/16/21 03:00 AST 17 U/L (13-39) 11/16/21 03:00 ALT 18 U/L (7-52) 11/16/21 03:00 Alkaline Phosphatase 111 U/L (34-104) H 11/16/21 03:00 Total Protein 7.0 gm/dl (6.0-8.3) 11/16/21 03:00 Albumin 4.4 gm/dl (3.4-5.0) 11/16/21 03:00 Globulin 2.6 gm/dl (2.5-4.0) 11/16/21 03:00 Albumin/Globulin Ratio 1.7 (0.9-2) 11/16/21 03:00 Lipase 17 U/L (11-82) 11/16/21 03:[address] Abdomen and Pelvis with contrast - per STAT rad - combatible with SBO. Multiple fluid-filled mildly dilated loops of small bowel in the left hemiabdomen with a transition point in the mid abdomen slightly to the left of midline. The loop of bowel distal to the incision point is thickened. There is stool throughout the colon. There is no mesenteric edema, pneumatosis or extraluminal gas. Code Status & VTE Plan VTE Prophylaxis Plan VTE Prophylaxis will be ordered: Yes PG Care Time/CCT Total # of Minutes Spent Total Time Spent with Patient: Total time spent is greater than 50% in coordination of care (as documented) at patient's floor/unit and/or counseling patient: Coding Level of Care Code 98395 Initial Inpt Care Lvl 3 Diagnoses SBO (small bowel obstruction) K56.609 Hypertension I10 Asthma J45.909 Anxiety F41.9 Diabetes mellitus E11.9
--- NOTE | 2021-11-16 06:36 | Surgery Consultation ---
Date of Consultation November 16, 2021 Assessment & Plan (1) Small bowel obstruction: The patient is being admitted on the hospitalist service. Recommend proceeding as follows: Implement n.p.o. status Provide IV fluid for hydration Provide analgesics Provide antiemetics An NG tube been ordered and is currently being placed by nursing staff. Would recommend continuing this modality until patient has return of bowel function in the form of bowel movements or flatus. Once bowel function has returned consideration can be given to removing NG tube and advancing diet beginning with slow liquids. Additional recommendations be forthcoming based on her clinical course as it unfolds. Supervising Physician Co-Signing Physician Notes I personally saw and evaluated the patient with Delta Ferguson PA-C and agree with the assessment and plan. 80-year-old female here with a small bowel obstruction CT images and results personally viewed by me She is being admitted to the medical service Recommend keeping her n.p.o., she already has an NG tube placed We will follow her abdominal exams and vital signs and see if she can progress without surgery Will follow History of Present Illness Reason for Consultation: Small bowel obstruction History of Present Illness This is an 80-year-old female who presented to the emergency department secondary to abdominal pain along with nausea or vomiting. The patient says that she was in her usual state of health feeling fine until the evening of 11/15/2021 she had somewhat sudden onset of abdominal pain that is located just to the left of the umbilicus without radiation or modifying factors. Patient notes that she has had nausea and a small amount of emesis earlier that evening. Because of the symptoms she presented to the emergency department. It is noteworthy to mention that the patient had a small bowel obstruction in May 2021 that was treated successfully in a conservative manner without surgery. Patient does note that she has had abdominal surgeries in the form of a hysterectomy in the past but has not had any other abdominal surgeries. In the emergency department the patient had a CT scan that was concerning for small bowel obstruction. There are multiple loops of dilated small bowel in the left hem-iabdomen. The transition point was noted slightly left to the midline. There is no mesenteric edema or pneumatosis intestinalis. There is no extraluminal gas. Patient also had labs including CBC were white blood cell count, hemoglobin, hematocrit, and were normal. Platelet count was 412,000. Chemistry profile showed sodium was 129 with a potassium of 3.7. BUN and creatinine were both normal. There is no elevation of patient's transaminases or bilirubin. Her alkaline phosphatase had a slight elevation at 111. Lipase was normal. A COVID test was negative. At the time of my interview the patient was resting comfortably in bed and she was in no distress. Allergies Allergy/AdvReac Type Severity Reaction Status Date / Time adhesive Allergy Unknown rash, Verified 11/16/21 03:04 redness,ITCHY bacitracin [From Polysporin] Allergy Unknown ITCHY RASH Verified 11/16/21 03:04 codeine Allergy Unknown NAUSEA AND Verified 11/16/21 03:04 VOMITING latex Allergy Unknown skin Verified 11/16/21 03:04 redness meperidine [From Demerol] Allergy Unknown NAUSEA AND Verified 11/16/21 03:04 VOMITING morphine Allergy Unknown NAUSEA Verified 11/16/21 03:04 VOMITING oxycodone [From Percocet] Allergy Unknown NAUSEA-PT Verified 11/16/21 03:04 UNSURE polymyxin B [From Polysporin] Allergy Unknown ITCHY RASH Verified 11/16/21 03:04 lisinopril AdvReac Unknown cough Verified 11/16/21 03:04 Home Medications Medication Instructions Recorded Confirmed Type docusate sodium 100 mg capsule 100 mg PO QPM 12/22/19 11/16/21 History (Stool Softener) trazodone 50 mg tablet 25 mg PO HS #30 tabs 06/09/20 11/16/21 Rx albuterol sulfate 90 mcg/actuation 2 puff inhalation Q6H PRN 01/06/21 11/16/21 Rx aerosol inhaler (ProAir HFA) shortness of breath or wheezing #8 grams blood sugar diagnostic (OneTouch #100 ea 01/12/21 11/03/21 Rx Ultra Test strips) blood-glucose meter (OneTouch #1 ea 01/12/21 11/03/21 Rx Verio Meter) lancets (OneTouch UltraSoft #100 ea 01/12/21 11/03/21 Rx Lancets) amlodipine 5 mg tablet 5 mg PO QAM 06/04/21 11/16/21 History gabapentin 100 mg capsule 100 mg PO HS 06/04/21 11/16/21 History losartan 50 mg-hydrochlorothiazide 1 tab PO BID 06/04/21 11/16/21 History 12.5 mg tablet metoprolol succinate 25 mg 25 mg PO QAM 06/04/21 11/16/21 History tablet,extended release 24 hr polyethylene glycol 3350 17 17 g PO TID PRN Constipation #0 06/10/21 11/16/21 Rx gram/dose oral powder (Miralax) grams goxxujowvy-dkpbyycraqndm-eawlbgxh 1 cap PO Q4H PRN Headache 06/15/21 11/16/21 History 50 mg-300 mg-40 mg capsule (Fioricet) fluticasone propionate 110 1 puff inhalation BID PRN Wheezing 06/15/21 11/16/21 History mcg/actuation HFA aerosol inhaler (Flovent HFA) psyllium husk 3.4 gram/5.4 gram 1 tbsp PO DAILY 09/26/21 11/16/21 History oral powder (Metamucil) linaclotide 145 mcg capsule 145 mcg PO QAM #90 caps 09/28/21 11/16/21 Rx (Linzess) camphor-menthol 0.2 %-3.5 % 1 applic topical DIRECTED PRN 11/16/21 11/16/21 History topical gel Pain Patient History Medical History Actinic cheilitis Actinic keratosis Anxiety Asthma stable-LAST RESCUE INHALER USE 1 MONTH AGO Basal cell carcinoma Bladder prolapse Diabetes PCP has been monitoring. A1C has crept up to 6.8%, no medication NOW, just dietary modifications. History of basal cell carcinoma History of COVID-19 DX'D 11/2020 WHILE AT [facility] AFTER STROKE-HEADACHE, SINUS SYMPTOMS- RESOLVED History of melanoma History of squamous cell carcinoma Hypertension Left knee DJD Osteoarthritis SBO (small bowel obstruction) 05/2021- [facility] ADMISSION-NO SURGERY Stroke [id number] BOTH EYES-VISION REMAINS IMPAIRED-DOES NOT DRIVE, SHORT MEMORY IMPAIRMENT-NO ISSUES SINCE Visual loss Surgical History H/O cataract removal with insertion of prosthetic lens History of basal cell carcinoma (BCC) excision History of colonoscopy History of melanoma excision History of right knee joint replacement Right TKA: 09/21/14: SAB x1 attempt at L3/L4 + PNB at [facility] History of squamous cell carcinoma excision History of tonsillectomy History of total abdominal hysterectomy and bilateral salpingo-oophorectomy History of total knee replacement LEFT History of tubal ligation Nausea and vomiting after administration of anesthetic agent Status post right knee replacement Family History Father Prostate cancer Sister Family history of reaction to anesthesia PONV Other No family history of adverse response to anesthesia Denies family history of Ovarian cancer Diabetes Dyslipidemia Myocardial infarction Breast cancer COPD (chronic obstructive pulmonary disease) Colorectal cancer Social History Smoking Status: Never smoker Second Hand Exposure: No; Do You Dip or Chew Tobacco: No; Tobacco Cessation Education Requested by Patient: No Hx Alcohol Use: No Hx Substance Use: No Preferred Language: Hungarian Communication Ability: Effective Hearing Ability: Normal 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 Beliefs That Will Affect Care: Jehovah'S Witness Jehovah'S Witness Beliefs: [employer] marital status: Current Living Situation: Spouse current occupational status: retired Other Information That Helps Us Care for You: No Feels Safe at Home: Yes Safety Concerns: Feels Safe At This Time Childhood Exposure to Second-Hand Smoke: Yes caffeine: Yes during the past year weight has: remained stable Dental Care, Regularly: Yes Seatbelt Use: always Sunscreen Use: Yes Assistive Devices: Cane Review of Systems Constitutional: no fever and no chills Eyes: no eye pain Ear, Nose, Mouth, Throat: no ear pain Respiratory: no cough and no dyspnea Cardiovascular: no chest pain Gastrointestinal: + abdominal pain, + nausea and + vomiting Genitourinary: no dysuria Musculoskeletal: no back pain Integumentary: no rash Neurologic: no localized weakness Physical Exam Constitutional: WD/WN, vitals as above Eyes: no conjunctival abnormality ENMT: Ears: no hearing impairment and no external ear abnormality Mouth: no oropharynx abnormality Neck: trachea midline Respiratory: normal respiratory effort; no respiratory distress and no labored breathing Cardiovascular: Rate/Rhythm: regular rate and regular rhythm Gastrointestinal (Abdomen): Abdomen is minimally distended and soft. It is nonrigid. There is no rebound tenderness or guarding. There is pain noted with deep palpation just to the left of the umbilicus. Musculoskeletal: No calf tenderness Skin: no rashes Neurologic: moves all extremities Psychiatric: A+Ox3, euthymic affect Results & Data ([facility]) Vital Signs (Past 12 Hours) Vital Signs Temp Pulse Pulse Resp BP BP Pulse Ox 11/16/21 06:00 75 17 169/82 H 100 11/16/21 04:52 66 14 121/64 97 11/16/21 05:00 69 16 141/70 H 96 11/16/21 04:48 58 L 14 89/51 L 97 11/16/21 04:04 89 21 180/93 H 98 11/16/21 02:35 36.6 C 77 18 187/74 H 99 O2 Del Method 11/16/21 06:00 Room Air 11/16/21 04:52 Room Air 11/16/21 05:00 Room Air 11/16/21 04:48 Room Air 11/16/21 04:04 Room Air 11/16/21 02:35 Room Air PG Care Time/CCT Total # of Minutes Spent Total Time Spent with Patient: Total time spent is greater than 50% in coordination of care (as documented) at patient's floor/unit and/or counseling patient: Coding Level of Care Code 72193 Inpt Consult Level 5 Diagnoses Small bowel obstruction K56.609
[2021-11-16 07:19] LABS: Appearance Urine Clear (Clear); Bacteria Urine Automated Negative (Negative); Bilirubin Urine Negative (Negative); Blood Urine Trace (Negative); Cast Urine Automated 0 /lpf (0-5); Color Urine Yellow; Epithelial Cell Urine Auto 0-5 /lpf (0-5); Glucose Urine UA Negative (Negative); Ketones Urine Negative (Negative); Leukocyte Esterase Urine Negative (Negative); Nitrite Urine Negative (Negative); Protein Urine Negative (Negative); RBC Urine Automated 0-4 /hpf (0-4); Specific Gravity Urine 1.018 (1.000-1.030); Urobilinogen Urine Negative (Negative); pH Urine 7.5 (4.5-7.5)
--- NOTE | 2021-11-16 09:01 | CT Scan Report ---
CT OF THE ABDOMEN AND PELVIS WITH CONTRAST CLINICAL HISTORY: Abdominal pain. Evaluate for bowel obstruction. COMPARISON STUDY: KUB June 08, 2021. CT of the abdomen and pelvis June 04, 2021. TECHNIQUE: Following IV administration of 94 mL of Optiray, axial images of the abdomen and pelvis we re obtained from the lung bases to the proximal femurs. Images were reviewed in the axial, sagittal, and coronal planes. IV contrast was administered without complication. Automated exposure control wa s utilized for the study. A dose lowering technique was utilized adhering to the principles of ALARA . CT DOSE: 254.37 mGy.cm FINDINGS: Lung bases are unremarkable. No pneumatosis, free air or portal venous gas is present. Ther e is a small hiatal hernia. Liver, spleen, adrenal glands, kidneys and pancreas are unremarkable. Mod erate amount stool within the distal sigmoid colon and proximal rectum is noted. There is colonic div erticulosis without evidence for acute diverticulitis. There are multiple loops of mildly dilated flu id-filled small bowel. Several transition points in close proximity to one another within the left lo wer quadrant are noted, best shown on axial image 235 of 411. The distal small bowel is decompressed. There is mild adjacent mesenteric stranding and trace ascites. No lymphadenopathy is present. No acu te fracture or suspicious lesion within the visualized skeletal structures is present. IMPRESSION: Findings consistent with a small bowel obstruction, as described above. Several apparent transition points in close proximity to one another within the left lower quadrant, as described abo ve. Mild associated mesenteric stranding and trace ascites. ACT 112: Negative or not required by law. Electronically signed by: Flex Alberto M.D. 11/16/2021 8:58 AM
[2021-11-16] MEDS ORDERED: ALBUTEROL HFA 8 GM INHALER INH PRN (11:13)
[2021-11-16] MEDS ORDERED: GLUCAGON FOR INJ 1 MG VIAL SQ PRN (11:13)
[2021-11-16] MEDS ORDERED: CARBOHYDRATES FOR HYPOGLYCEMIA PO PRN (11:13)
[2021-11-16] MEDS ORDERED: bisacodyL 10 MG SUPP PR PRN (11:13)
[2021-11-16] MEDS ORDERED: ONDANSETRON INJ 2 MG/ML 2 ML VIAL IV PRN (11:13)
[2021-11-16] MEDS ORDERED: GLUCOSE 10 TAB/TUBE PO PRN (11:13)
[2021-11-16] MEDS ORDERED: FLUTICASONE HFA 110MCG INHALER INH PRN (11:13)
[2021-11-16] MEDS ORDERED: DEXTROSE 50% 50 ML SYRINGE IV PRN (11:13)
[2021-11-16] MEDS ORDERED: GLUCOSE 40% GEL 15 GM TUBE PO PRN (11:13)
[2021-11-16] MEDS ORDERED: FLUTICASONE FUROATE 100MCG 14 PUFFS/INHALER INH PRN (11:31)
[2021-11-16] MEDS: LOSARTAN/HCTZ 50/12.5MG TAB PO SCH ×2 (12:08→21:28)
[2021-11-16] MEDS: amLODIPine BESYLATE 5 MG TAB PO SCH (12:08)
[2021-11-16] MEDS: LACTATED RINGER'S 1,000 ML IV SCH (12:08)
[2021-11-16] MEDS: METOPROLOL SUCC 25MG EXT REL TAB PO SCH (12:08)
[2021-11-16] MEDS: HYDROmorphone INJ 0.5 MG/0.5 ML SYR IV PRN ×2 (12:09→21:27)
[2021-11-16 12:22] LABS: Magnesium 1.8 mg/dl (1.7-2.4); Phosphorus 3.7 mg/dl (2.5-4.9)
--- NOTE | 2021-11-16 12:36 | Communication Note ---
Date of Service: November 16, 2021 Please see admission note for full plan. Visited patient this afternoon to see how she was feeling with regard to her belly pain and reassess her abdomen. She reports feeling overall very anxious about her small bowel obstruction and abdominal pain. She also reports feeling depressed recently as she has had several admissions for different issues, including small bowel obstruction in May of this year, as well as a recent hemorrhagic stroke which she is actively recovering from. Before these medical events that she was for the most part relatively healthy, so it has been very jarring for her to have a sudden change in her medical status. I reassured her that her abdomen is nice and soft, and that the plan at this point is to wait for her small bowel obstruction to resolve, and that surgery can intervene if necessary if things are not improving. I also recommended that she follow-up with her primary care provider Dr. Wolf in order to talk more about her illness related depressive symptoms, and perhaps consider counseling or even medication for depression/anxiety. On exam abdomen is soft, mild tenderness generalized. Patient has an NG tube in place draining yellowgreen fluid. Plan for continue NG tube, pain and nausea medications ordered as needed. We will follow-up with serial abdominal exam in the morning.
[2021-11-16] MEDS ORDERED: METOPROLOL TARTRATE 1 MG/ML VIAL IV STA (17:32)
[2021-11-16] MEDS ORDERED: MELATONIN 3 MG TAB PO PRN (17:33)
[2021-11-16] MEDS: traZODone HCL 50 MG TAB PO SCH (21:27)
[2021-11-16] MEDS: GABAPENTIN 100 MG CAP PO SCH (21:28)
[2021-11-17] MEDS: LACTATED RINGER'S 1,000 ML IV SCH (00:47)
--- NOTE | 2021-11-17 07:41 | Hospitalist Progress Note ---
Date of Service November 17, 2021 Assessment & Plan (1) Small bowel obstruction: Plan: 80yo female with prior SBO in May 2021, Hx hemorrhagic CVA, HTN admitted for SBO likely 2/2 adhesions. SBO: -History of BYRON with bilateral oophorectomy. -This is patient's 2nd SBO in life, last was in May 2021. -Continue NGT, pain/nausea medications PRN. -Serial abdominal exams. -Gen Surg consulted and following, non-operative at this time, however we will continue to monitor as patient has not made much progress over the last 24 hours. -Continue normal saline with added potassium at 100 cc/hr. (2) Hyponatremia: Plan: -Admission Na of 129, suspect in the setting of poor PO intake and nausea/vomiting from SBO. -Today improved to 131 with gentle NSS. -Daily BMP. (3) Hypertension: Plan: -Chronic. -Continue Losartan/HCTZ. -Continue Amlodipine. -Continue metoprolol. (4) Asthma: Plan: -Chronic, well controlled. -Continue Flovent and albuterol PRN. (5) Anxiety: Plan: -Chronic. -Lorazepam 0.5mg daily as needed. -Trazodone qHS for insomnia. -Recommend follow up with PCP/counseling services for illness-related depression. (6) Diabetes mellitus: Plan: -Chronic. Patient currently not on any medications. -Last HgbA1C in May 2021 = 6.6%. -Continue Gabapentin. Plan Code Status: FULL CODE F/E/N - n.p.o. with IV fluids DVT ppx - SCDs Dispo - Med/Surg Admission and Anticipated Discharge Date Admission Date: November 16, 2021 Subjective Patient without any acute events overnight. Patient reports that she does not have any change in her symptoms, had a little bit of nausea this morning but did not ask for Zofran. Has been feeling overwhelmingly anxious in general due to her recent medical issues, however is feeling even more anxious during this admission. Has been given lorazepam on a very infrequent basis in the past by PCP for acute severe anxiety with good results. Review of Systems Constitutional: no fever and no chills Respiratory: no cough and no dyspnea Cardiovascular: no chest pain and no palpitations Gastrointestinal: + abdominal pain and + nausea; no vomiting Physical Exam Constitutional: WD/WN, vitals as above Respiratory: normal respiratory effort, lungs clear to auscultation Cardiovascular: RRR, no murmur, no edema Gastrointestinal (Abdomen): Abdomen soft, mild diffuse tenderness, mild abdominal distention NG tube in place draining yellow-green fluid Skin: no rashes, warm and dry Psychiatric: A+Ox3, euthymic affect Results & Data Results & Data ([facility]) Vital Signs (Past 12 Hours) Vital Signs Temp Pulse Pulse Resp BP Pulse Ox O2 Del Method 11/16/21 22:18 66 11/17/21 04:00 36.7 C 72 20 162/56 H 98 Room Air 11/16/21 23:53 36.8 C 80 20 178/94 H 97 Room Air 11/16/21 20:09 36.6 C 74 18 183/82 H 98 Room Air PG Care Time/CCT Total # of Minutes Spent Total Time Spent with Patient: Total time spent is greater than 50% in coordination of care (as documented) at patient's floor/unit and/or counseling patient: Coding Level of Care Code 28448 Subseq Hosp Care Lvl 3 Diagnoses Small bowel obstruction K56.609 Hyponatremia E87.1 Hypertension I10 Asthma J45.909 Anxiety F41.9 Diabetes mellitus E11.9
[2021-11-17] MEDS: LOSARTAN/HCTZ 50/12.5MG TAB PO SCH ×2 (08:57→20:00)
[2021-11-17] MEDS: amLODIPine BESYLATE 5 MG TAB PO SCH (08:57)
[2021-11-17] MEDS: METOPROLOL SUCC 25MG EXT REL TAB PO SCH (08:57)
[2021-11-17 09:01] LABS: Hematocrit (blood only) 38.3 % (34.1-44.9); Hemoglobin 13.6 g/dl (12.0-16.0); Mean Corpuscular Hemoglobin 31.3 pg (25.0-34.0); Mean Corpuscular Hgb Conc 35.5 g/dL (32.0-36.0); Mean Platelet Volume 8.4 fL (9.4-12.3); Platelet Count 426 K/uL (130-400); RDW Coefficient of Variation 13.2 % (11.5-14.5); RDW Standard Deviation 43.1 fL (36.4-46.3); Red Blood Count 4.35 M/uL (3.93-5.22); White Blood Count 8.42 K/ul (4.8-10.8)
[2021-11-17 09:18] LABS: BUN Creatinine Ratio 12.9 (10-20); Calcium 9.6 mg/dl (8.5-10.1); Creatinine Clr Calc Pharmacy 53.2 ml/min; Est GFR (African American) 97.3 ml/min; Potassium 3.6 mmol/L (3.5-5.1)
--- NOTE | 2021-11-17 11:05 | Surgery Progress Note ---
Date of Service November 17, 2021 Assessment & Plan (1) Small bowel obstruction: Plan: stable continue NG check KUB ambulate consider increasing IVF Admission and Anticipated Discharge Date Admission Date: November 16, 2021 Supervising Physician Co-Signing Physician Notes I personally saw and evaluated the patient with Steven Norris PA-C and agree with the assessment and plan. 80-year-old female here with a small bowel obstruction Has not made much progress over the last 24 hours Continue n.p.o./NG tube We will order a KUB We will follow her abdominal exams and vital signs and see if she can progress without surgery Will follow Subjective still some nausea, no flatus, taking some ice Physical Exam Gastrointestinal (Abdomen): Inspection/Auscultation: + abdomen distended (slight) Percussion/Palpation: + abdomen tender (minimal) and abdomen soft; no guarding Results & Data ([facility]) Vital Signs (Past 12 Hours) Vital Signs Temp Pulse Pulse Resp BP Pulse Ox O2 Del Method 11/17/21 08:28 36.9 C 83 16 162/91 H 93 Room Air 11/17/21 04:00 36.7 C 72 20 162/56 H 98 Room Air 11/16/21 23:53 36.8 C 80 20 178/94 H 97 Room Air PG Care Time/CCT Total # of Minutes Spent Total Time Spent with Patient: Total time spent is greater than 50% in coordination of care (as documented) at patient's floor/unit and/or counseling patient: Coding Level of Care Code 63046 Subseq Hosp Care Lvl 1 Diagnoses Small bowel obstruction K56.609
[2021-11-17] MEDS ORDERED: LORazepam 0.5 MG TAB PO PRN (11:51)
[2021-11-17] MEDS: NSS + 20MEQ KCL 20 MEQ/1,000 ML BAG IV SCH ×2 (13:30→23:45)
[2021-11-17] MEDS: HYDROmorphone INJ 0.5 MG/0.5 ML SYR IV PRN (14:09)
--- NOTE | 2021-11-17 14:24 | XRay Report ---
KUB CLINICAL HISTORY: Small bowel obstruction. COMPARISON STUDY: CT of the abdomen and pelvis November 16, 2021. FINDINGS: Tip of nasogastric tube is within the gastric cardia with a sidehole at the level of the ga stroesophageal junction. Small bowel loops measure up to 3.8 cm in caliber. The findings suggest a pe rsistent small bowel obstruction. No evidence for free air on this supine exam. No radiographic evide nce of pneumatosis. IMPRESSION: 1. Findings suggestive of a persistent small bowel obstruction. 2. Tip of nasogastric tube within the gastric cardia. The tube could be advanced an additional 3 cm. ACT 112: Negative or not required by law. Electronically signed by: Flex Alberto M.D. 11/17/2021 2:23 PM
[2021-11-17] MEDS: GABAPENTIN 100 MG CAP PO SCH (20:00)
[2021-11-17] MEDS: traZODone HCL 50 MG TAB PO SCH (20:02)
[2021-11-18 07:03] LABS: Hematocrit (blood only) 33.4 % (34.1-44.9); Hemoglobin 11.4 g/dl (12.0-16.0); Mean Corpuscular Hemoglobin 30.6 pg (25.0-34.0); Mean Corpuscular Hgb Conc 34.1 g/dL (32.0-36.0); Mean Corpuscular Volume 89.8 fL (80.0-100.0); Mean Platelet Volume 8.3 fL (9.4-12.3); Platelet Count 356 K/uL (130-400); RDW Coefficient of Variation 13.1 % (11.5-14.5); RDW Standard Deviation 43.1 fL (36.4-46.3); Red Blood Count 3.72 M/uL (3.93-5.22); White Blood Count 6.78 K/ul (4.8-10.8)
[2021-11-18 07:35] LABS: BUN Creatinine Ratio 16.9 (10-20); Calcium 8.7 mg/dl (8.5-10.1); Creatinine Clr Calc Pharmacy 55.9 ml/min; Est GFR (African American) 98.9 ml/min; Est GFR (Non-African American) 85.4 ml/min; Potassium 3.8 mmol/L (3.5-5.1)
--- NOTE | 2021-11-18 08:13 | Hospitalist Progress Note ---
Date of Service November 18, 2021 Assessment & Plan (1) Small bowel obstruction: Plan: 80yo female with prior SBO in May 2021, Hx hemorrhagic CVA, HTN admitted for SBO likely 2/2 adhesions. SBO: -History of BYRON with bilateral oophorectomy. -This is patient's 2nd SBO in life, last was in May 2021. -After last SBO reportedly had a colonoscopy that was normal. -KUB today unfortunately with progression of SBO. -CTAP with IV and PO contrast showed persistent SBO with associated mild ascites and mesenteric inflammation. -Continue NGT, pain/nausea medications PRN. -Serial abdominal exams. -Gen Surg consulted, appreciate their recommendations: KUB in AM and if no improvement in SBO will plan for ex-lap tomorrow AM. -Continue normal saline with added potassium at 100 cc/hr. (2) Hyponatremia: Plan: -Admission Na of 129, suspect in the setting of poor PO intake and nausea/vomiting from SBO. -Today improved to 132 with gentle NSS. -Daily BMP. (3) Hypertension: Plan: -Chronic. -Continue Losartan/HCTZ. -Continue Amlodipine. -Continue metoprolol. (4) Asthma: Plan: -Chronic, well controlled. -Continue Flovent and albuterol PRN. (5) Anxiety: Plan: -Chronic. -Lorazepam 0.5mg daily as needed. -Trazodone qHS for insomnia. -Recommend follow up with PCP/counseling services for illness-related depression. (6) Diabetes mellitus: Plan: -Chronic. Patient currently not on any medications. -Last HgbA1C in May 2021 = 6.6%. -Continue Gabapentin. Plan Code Status: FULL CODE F/E/N - n.p.o. with IV fluids DVT ppx - SCDs Dispo - Med/Surg Admission and Anticipated Discharge Date Admission Date: November 16, 2021 Subjective Overnight patient did have some nausea and anxiety, belly bloating. Reports that perhaps she feels somewhat worse today compared to yesterday. She has not passed gas or had a bowel movement. Review of Systems Constitutional: no fever and no chills Respiratory: no cough and no dyspnea Cardiovascular: no chest pain and no palpitations Gastrointestinal: + abdominal pain and + nausea; no vomiting Physical Exam Constitutional: WD/WN, vitals as above Respiratory: normal respiratory effort, lungs clear to auscultation Cardiovascular: RRR, no murmur, no edema Gastrointestinal (Abdomen): Inspection/Auscultation: + abdomen distended Percussion/Palpation: + abdomen tender (mildly tender difusely to palpation); no guarding and abdomen not rigid +NG tube in place draining green yellow fluid Skin: no rashes, warm and dry Psychiatric: Orientation: alert and oriented x 3 Affect: + anxious affect Results & Data Results & Data ([facility]) Vital Signs (Past 12 Hours) Vital Signs Temp Pulse Resp BP Pulse Ox O2 Del Method 11/18/21 07:48 36.9 C 78 19 159/68 H 94 Room Air 11/17/21 23:11 36.8 C 88 20 145/72 H 96 Room Air PG Care Time/CCT Total # of Minutes Spent Total Time Spent with Patient: Total time spent is greater than 50% in coordination of care (as documented) at patient's floor/unit and/or counseling patient: Coding Level of Care Code 96585 Subseq Hosp Care Lvl 3 Diagnoses Small bowel obstruction K56.609 Hyponatremia E87.1 Hypertension I10 Asthma J45.909 Anxiety F41.9 Diabetes mellitus E11.9
--- NOTE | 2021-11-18 08:50 | Surgery Progress Note ---
Date of Service November 18, 2021 Assessment & Plan (1) Small bowel obstruction: Plan: KUB from yesterday showing persistent SBO. NG tube in place. pt not passing flatus and no BM. Continue with NG tube, encouraged ambulation. Will recheck KUB today. Continue to remain hopeful that patient can improve without surgical intervention. Admission and Anticipated Discharge Date Admission Date: November 16, 2021 Supervising Physician Co-Signing Physician Notes I personally saw and evaluated the patient with Jaciel De La Rosa PA-C and agree with the assessment and plan. 80-year-old female with small bowel obstruction She has not had any bowel movements or flatus since admission and still has some abdominal pain We will order a CT of the abdomen and pelvis with IV and p.o. contrast today to reevaluate and possibly have the p.o. contrast be therapeutic She may require exploration pending the CT results Further treatment plan pending CT results Subjective Britta is sitting at bedside- she reports that she does not feel much better, but does not feel any worse from yesterday. She denies passing flatus, denies BM. NG tube in place with 275 mL of output. Review of Systems Constitutional: no fever and no chills Gastrointestinal: + abdominal pain (improving. ) and + bloating; no nausea and no vomiting Physical Exam Constitutional: WD/WN, vitals as above Respiratory: normal respiratory effort; no respiratory distress and no labored breathing Gastrointestinal (Abdomen): Inspection/Auscultation: + abdomen distended Percussion/Palpation: + abdomen tender (slightly tender with palpation ); no guarding and abdomen not rigid +NG tube in place. Results & Data ([facility]) Vital Signs (Past 12 Hours) Vital Signs Temp Pulse Resp BP Pulse Ox O2 Del Method 11/18/21 07:48 36.9 C 78 19 159/68 H 94 Room Air 11/17/21 23:11 36.8 C 88 20 145/72 H 96 Room Air PG Care Time/CCT Total # of Minutes Spent Total Time Spent with Patient: Total time spent is greater than 50% in coordination of care (as documented) at patient's floor/unit and/or counseling patient: Coding Level of Care Code 93743 Subseq Hosp Care Lvl 1 Diagnoses Small bowel obstruction K56.609
[2021-11-18] MEDS: LOSARTAN/HCTZ 50/12.5MG TAB PO SCH ×2 (09:09→23:01)
[2021-11-18] MEDS: METOPROLOL SUCC 25MG EXT REL TAB PO SCH (09:09)
[2021-11-18] MEDS: amLODIPine BESYLATE 5 MG TAB PO SCH (09:09)
[2021-11-18] MEDS: NSS + 20MEQ KCL 20 MEQ/1,000 ML BAG IV SCH ×2 (10:00→20:32)
--- NOTE | 2021-11-18 10:26 | XRay Report ---
KUB CLINICAL HISTORY: Small bowel obstruction. COMPARISON STUDY: CT of the abdomen and pelvis November 16, 2021. KUB November 17, 2021. FINDINGS: Tip of nasogastric tube projects over the gastric antrum. Numerous loops of moderately dila jose small bowel are noted. Small bowel dilatation has increased since prior exam. Moderate amount of stool within the colon and rectum is present. Although sensitivity is diminished on this supine exam, there is no evidence for free air. IMPRESSION: Increase in small bowel dilatation. The findings suggest a progressive small bowel obstr uction. ACT 112: Negative or not required by law. Electronically signed by: Flex Alberto M.D. 11/18/2021 10:25 AM
[2021-11-18] MEDS ORDERED: IOVERSOL 350 MG 100mL Prefilled Syringe IV ONE (14:33)
--- NOTE | 2021-11-18 16:43 | CT Scan Report ---
CT OF THE ABDOMEN AND PELVIS WITH CONTRAST CLINICAL HISTORY: Persistent small bowel obstruction. COMPARISON STUDY: CT of the abdomen and pelvis November 16, 2021. KUB performed earlier today. TECHNIQUE: Following IV administration of 93 mL of Optiray, axial images of the abdomen and pelvis we re obtained from the lung bases to the proximal femurs. Images were reviewed in the axial, sagittal, and coronal planes. IV contrast was administered without complication. Automated exposure control wa s utilized for the study. A dose lowering technique was utilized adhering to the principles of ALARA . Water-soluble contrast was administered via the nasogastric tube. CT DOSE: 238.27 mGy.cm FINDINGS: Lung bases are unremarkable. Tip of nasogastric tube is within the gastric antrum. No pneum atosis, free air or portal venous gas is present. Liver, spleen, adrenal glands, kidneys and pancreas are unremarkable. There is no biliary or pancreatic ductal dilatation. Moderate amount of stool with in the rectum is present. The proximal to mid small bowel is moderately dilated. Transition point is noted within the lower anterior abdomen shown on axial image 216 of 371. There may be an additional a djacent transition point. The distal small bowel is decompressed however contrast passed into the dis rosalva small bowel. There is no contrast within the cecum. A small amount of ascites and mild mesenteric infiltration are present. Small bowel dilatation is similar to CT of November 16, 2021. There is no ly mphadenopathy. No acute fracture or suspicious lesion within the visualized bony thorax is present. IMPRESSION: Findings consistent with a persistent partial small bowel obstruction, similar to prior C T. Distal small bowel decompressed however, oral contrast passed into the distal ileum. Small amount of associated ascites and mesenteric infiltration. ACT 112: Negative or not required by law. Electronically signed by: Flex Alberto M.D. 11/18/2021 4:40 PM
[2021-11-18] MEDS ORDERED: PROCHLORPERAZINE 5 MG in SYRINGE 4 ML IV PRN (17:38)
[2021-11-18] MEDS: HYDROmorphone INJ 0.5 MG/0.5 ML SYR IV PRN ×2 (17:44→23:01)
[2021-11-18] MEDS: traZODone HCL 50 MG TAB PO SCH (23:00)
[2021-11-18] MEDS: GABAPENTIN 100 MG CAP PO SCH (23:00)
[2021-11-19] MEDS: NSS + 20MEQ KCL 20 MEQ/1,000 ML BAG IV SCH ×3 (05:46→23:13)
--- NOTE | 2021-11-19 06:32 | XRay Report ---
KUB HISTORY: Acute generalized abdominal pain with reported small bowel obstruction Follow contrast COMPARISON: CT 11/18/2021 FINDINGS: Distal tip enteric tube projects over the distal stomach. Interval progression of the oral contrast, now present within the large bowel. Persistent small bowel distention. No renal calculi. N o ureteral calculi. No pneumoperitoneum or pneumatosis. No fracture. IMPRESSION: Partial small bowel obstruction with enteric contrast within the colon. ACT 112: Negative or not required by law. The above report was generated using voice recognition software. It may contain grammatical, syntax o r spelling errors. Electronically signed by: Boubacar Sales M.D. 11/19/2021 6:30 AM
[2021-11-19 07:17] LABS: Hematocrit (blood only) 33.6 % (34.1-44.9); Hemoglobin 11.7 g/dl (12.0-16.0); Mean Corpuscular Hemoglobin 30.8 pg (25.0-34.0); Mean Corpuscular Hgb Conc 34.8 g/dL (32.0-36.0); Mean Corpuscular Volume 88.4 fL (80.0-100.0); Mean Platelet Volume 8.4 fL (9.4-12.3); Platelet Count 351 K/uL (130-400); RDW Standard Deviation 42.4 fL (36.4-46.3); White Blood Count 7.43 K/ul (4.8-10.8)
--- NOTE | 2021-11-19 07:26 | Hospitalist Progress Note ---
Date of Service November 19, 2021 Assessment & Plan (1) Small bowel obstruction: Plan: 80yo female with prior SBO in May 2021, Hx hemorrhagic CVA, HTN admitted for SBO likely 2/2 adhesions. SBO: -History of BYRON with bilateral oophorectomy. -This is patient's 2nd SBO in life, last was in May 2021. -After last SBO reportedly had a colonoscopy that was normal. -CTAP shows that contrast has passed into the ileum on CT, and into the cecum and transverse colon on KUB this morning. -Continue NGT, pain/nausea medications PRN. N.p.o. except for chronic medications. -Serial abdominal exams. -Gen Surg consulted, appreciate their recommendations: Continue conservative measures, and continue to evaluate for need for ex lap. -Continue normal saline with added potassium at 100 cc/hr. (2) Hyponatremia: Plan: -Admission Na of 129, suspect in the setting of poor PO intake and nausea/vomiting from SBO. -Today improved to 136 with IV fluids. -Daily BMP. (3) Hypertension: Plan: -Chronic. -Continue Losartan/HCTZ. -Continue Amlodipine. -Continue metoprolol. (4) Asthma: Plan: -Chronic, well controlled. -Continue Flovent and albuterol PRN. (5) Anxiety: Plan: -Chronic. -Lorazepam 0.5mg daily as needed. -Trazodone qHS for insomnia. -Recommend follow up with PCP/counseling services for illness-related depression. (6) Diabetes mellitus: Plan: -Chronic. Patient currently not on any medications. -Last HgbA1C in May 2021 = 6.6%. -Continue Gabapentin. Plan Code Status: FULL CODE F/E/N - n.p.o. with IV fluids DVT ppx - SCDs; ambulate on demand, as patient is taking walks multiple times a day to try to relieve her SBO Dispo - Med/Surg Admission and Anticipated Discharge Date Admission Date: November 16, 2021 Subjective Patient does report some flatus overnight. Did also have a small bowel movement following an enema today. She reports decreased nausea and abdominal pain today as compared to yesterday. Review of Systems Constitutional: no fever and no chills Respiratory: no cough and no dyspnea Cardiovascular: no chest pain and no palpitations Gastrointestinal: + abdominal pain and + nausea; no vomiting Physical Exam Constitutional: WD/WN, vitals as above Respiratory: normal respiratory effort, lungs clear to auscultation Cardiovascular: RRR, no murmur, no edema Gastrointestinal (Abdomen): Inspection/Auscultation: + abdomen distended (Mild) Percussion/Palpation: + abdomen tender (mildly tender diffusely to palpation); no guarding and abdomen not rigid Skin: no rashes, warm and dry Psychiatric: A+Ox3, euthymic affect Orientation: alert and oriented x 3 Affect: + anxious affect Results & Data Results & Data ([facility]) Vital Signs (Past 12 Hours) Vital Signs Temp Pulse Resp BP Pulse Ox O2 Del Method 11/19/21 06:33 36.7 C 85 18 156/73 H 96 Room Air 11/18/21 23:12 36.6 C 89 18 166/79 H 96 Room Air PG Care Time/CCT Total # of Minutes Spent Total Time Spent with Patient: Total time spent is greater than 50% in coordination of care (as documented) at patient's floor/unit and/or counseling patient: Coding Level of Care Code 05109 Subseq Hosp Care Lvl 3 Diagnoses Small bowel obstruction K56.609 Hyponatremia E87.1 Hypertension I10 Asthma J45.909 Anxiety F41.9 Diabetes mellitus E11.9
[2021-11-19 07:51] LABS: Est GFR (African American) 98.4 ml/min; Est GFR (Non-African American) 84.9 ml/min; Potassium 3.7 mmol/L (3.5-5.1)
[2021-11-19] MEDS ORDERED: SOD PHOSPHATE/SOD BIPHOSPHATE ENEMA 132 ML BTL PR STA (07:56)
[2021-11-19] MEDS: amLODIPine BESYLATE 5 MG TAB PO SCH (08:48)
[2021-11-19] MEDS: METOPROLOL SUCC 25MG EXT REL TAB PO SCH (08:48)
[2021-11-19] MEDS: LOSARTAN/HCTZ 50/12.5MG TAB PO SCH ×2 (08:49→20:25)
--- NOTE | 2021-11-19 09:23 | Surgery Progress Note ---
Date of Service November 19, 2021 Assessment & Plan (1) Small bowel obstruction: Plan: CT images and KUB images personally reviewed by me, she does still have some small bowel dilation however the contrast has passed into the ileum on CT and then in the cecum and transverse colon on the KUB this morning She is overall feeling better with less pain and nausea We will continue nonoperative management of her adhesive bowel obstruction at this time Continue her NG tube, we will also order an enema as she did have some stool in her rectal vault on CT We will continue to follow Admission and Anticipated Discharge Date Admission Date: November 16, 2021 Subjective Patient seen and examined. She has less nausea and abdominal pain today. Afebrile. Had a little bit of flatus overnight. Review of Systems Constitutional: no fever and no chills Physical Exam Constitutional: WD/WN, vitals as above Eyes: PERRL, conjunctivae normal, anicteric sclerae Respiratory: normal respiratory effort, lungs clear to auscultation Gastrointestinal (Abdomen): Inspection/Auscultation: abdomen normal to inspection; abdomen not distended Percussion/Palpation: + abdomen tender (Diffuse) and abdomen soft; no guarding Musculoskeletal: no cyanosis or clubbing, extremities motor strength 5/5 Results & Data ([facility]) Vital Signs (Past 12 Hours) Vital Signs Temp Pulse Resp BP Pulse Ox O2 Del Method 11/19/21 06:33 36.7 C 85 18 156/73 H 96 Room Air 11/18/21 23:12 36.6 C 89 18 166/79 H 96 Room Air PG Care Time/CCT Total # of Minutes Spent Total Time Spent with Patient: Total time spent is greater than 50% in coordination of care (as documented) at patient's floor/unit and/or counseling patient: Coding Level of Care Code 69191 Subseq Hosp Care Lvl 1 Diagnoses Small bowel obstruction K56.609
[2021-11-19 13:06] LABS: BUN Creatinine Ratio 19.4 (10-20); Creatinine Clr Calc Pharmacy 53.2 ml/min; Est GFR (African American) 97.3 ml/min
[2021-11-19] MEDS: GABAPENTIN 100 MG CAP PO SCH (20:25)
[2021-11-19] MEDS: traZODone HCL 50 MG TAB PO SCH (23:08)
[2021-11-19] MEDS: HYDROmorphone INJ 0.5 MG/0.5 ML SYR IV PRN (23:09)
--- NOTE | 2021-11-20 09:15 | XRay Report ---
KUB HISTORY: Acute generalized abdominal pain with small bowel obstruction sbo COMPARISON: KUB 11/19/2021, CT abdomen and pelvis 11/18/2021 FINDINGS: Distal tip of enteric tube projects over the distal stomach with side-port in the gastric b timothy. Enteric contrast is noted within the large bowel. Persistent mild gaseous distention of the smal l bowel within the central abdomen is similar to prior. Endoscopy clip projects over the ascending co norris. No renal calculi. No ureteral calculi. No pneumoperitoneum or pneumatosis. No fracture. IMPRESSION: 1. Distal tip of enteric tube projects over the distal stomach. 2. Enteric contrast is again noted within the large bowel. 3. Findings suggestive of partial small bowel obstruction. ACT 112: Negative or not required by law. The above report was generated using voice recognition software. It may contain grammatical, syntax o r spelling errors. Electronically signed by: Boubacar Sales M.D. 11/20/2021 9:14 AM
[2021-11-20] MEDS: amLODIPine BESYLATE 5 MG TAB PO SCH (09:17)
[2021-11-20] MEDS: NSS + 20MEQ KCL 20 MEQ/1,000 ML BAG IV SCH ×2 (09:17→18:06)
[2021-11-20] MEDS: LOSARTAN/HCTZ 50/12.5MG TAB PO SCH ×2 (09:17→20:31)
[2021-11-20] MEDS: METOPROLOL SUCC 25MG EXT REL TAB PO SCH (09:17)
--- NOTE | 2021-11-20 12:00 | Surgery Progress Note ---
Date of Service November 20, 2021 Assessment & Plan (1) Small bowel obstruction: Plan: She continues to improve slowly and contrast has reached her colon on KUB She has some return of bowel function however nothing consistent Rectal exam was performed at bedside with minimal stool in the rectal vault ruling out impaction As long as she continues to improve we will hold off on any abdominal exploration Admission and Anticipated Discharge Date Admission Date: November 16, 2021 Subjective Patient seen and examined. She had a few small bowel movements with the enema yesterday and 1 small bowel movement this morning with minimal flatus. She denies any nausea. Her abdominal pain is slightly improved. Review of Systems Constitutional: no fever and no chills Physical Exam Constitutional: WD/WN, vitals as above Gastrointestinal (Abdomen): Inspection/Auscultation: abdomen normal to inspection; abdomen not distended Percussion/Palpation: + abdomen tender (Mild diffuse) and abdomen soft; no guarding, abdomen not rigid and no hernia Rectal Exam: no rectal mass and no fecal impaction Results & Data ([facility]) Vital Signs (Past 12 Hours) Vital Signs Temp Pulse Resp BP Pulse Ox O2 Del Method 11/20/21 08:18 36.8 C 71 18 144/71 H 98 Room Air PG Care Time/CCT Total # of Minutes Spent Total Time Spent with Patient: Total time spent is greater than 50% in coordination of care (as documented) at patient's floor/unit and/or counseling patient: Coding Level of Care Code 19633 Subseq Hosp Care Lvl 1 Diagnoses Small bowel obstruction K56.609
--- NOTE | 2021-11-20 17:48 | Hospitalist Progress Note ---
Date of Service November 20, 2021 Assessment & Plan (1) Small bowel obstruction: Plan: History of BYRON with bilateral oophorectomy. This is patient's 2nd SBO in life, last was in May 2021. After last SBO, reportedly had a colonoscopy that was normal. - CT AP on 11/18 showed that contrast has passed into the ileum on CT, and into the cecum and transverse colon on KUB on 11/19. - Continue NGT, pain/nausea medications PRN. N.p.o. except for chronic medications. - Gen Surg consulted, appreciate their recommendations: Continue conservative measures, and continue to evaluate for need for ex lap. - Continue normal saline with added potassium at 100 cc/hr. (2) Hypertension: Plan: BP stable at 160/75 today. - Continue losartan/HCTZ, amlodipine, and metoprolol. - Clamp NG tube for 1 hour after. (3) Asthma: Plan: Chronic, well controlled. - Continue Flovent and albuterol PRN. (4) Anxiety: Plan: Chronic. - Lorazepam 0.5mg daily as needed. - Trazodone qHS for insomnia. - Recommend follow up with PCP/counseling services for illness-related depression. (5) Diabetes mellitus: Plan: Last HgbA1C in May 2021 = 6.6%. - Continue gabapentin. - Monitor blood sugars -> 74 - 90 in last 24 hours. Plan Code Status: FULL CODE F/E/N - n.p.o. with IV fluids DVT ppx - SCDs; ambulate on demand, as patient is taking walks multiple times a day to try to relieve her SBO Admission and Anticipated Discharge Date Admission Date: November 16, 2021 Subjective Had some small BMs yesterday after enema. Otherwise, no change in symptoms. Stomach pain is fairly tolerable/minimal with NG tube in place. Physical Exam Constitutional: WD/WN, vitals as above Eyes: EOM intact bilaterally; no conjunctival abnormality ENMT: external ear and nose normal, oropharynx normal Neck: trachea midline, no thyromegaly normal visual inspection Respiratory: normal respiratory effort, lungs clear to auscultation no respiratory distress Cardiovascular: RRR, no murmur, no edema Gastrointestinal (Abdomen): Inspection/Auscultation: + hypoactive bowel sounds; abdomen not distended and no abdominal edema Percussion/Palpation: abdomen soft; abdomen nontender, no guarding and abdomen not rigid Musculoskeletal: no cyanosis or clubbing, extremities motor strength 5/5 Skin: no rashes, warm and dry Neurologic: moves all extremities and awake Psychiatric: Orientation: alert, oriented to person and cooperative Results & Data Results & Data ([facility]) Vital Signs (Past 12 Hours) Vital Signs Temp Pulse Resp BP Pulse Ox O2 Del Method 11/20/21 12:14 36.7 C 81 16 159/76 H 100 Room Air 11/20/21 08:18 36.8 C 71 18 144/71 H 98 Room Air PG Care Time/CCT Total # of Minutes Spent Total Time Spent with Patient: Total time spent is greater than 50% in coordination of care (as documented) at patient's floor/unit and/or counseling patient: Coding Level of Care Code 31232 Subseq Hosp Care Lvl 2 Diagnoses Small bowel obstruction K56.609 Hypertension I10 Asthma J45.909 Anxiety F41.9 Diabetes mellitus E11.9
[2021-11-20] MEDS: HYDROmorphone INJ 0.5 MG/0.5 ML SYR IV PRN (20:32)
[2021-11-20] MEDS: GABAPENTIN 100 MG CAP PO SCH (20:32)
[2021-11-20] MEDS: traZODone HCL 50 MG TAB PO SCH (20:35)
[2021-11-21] MEDS: NSS + 20MEQ KCL 20 MEQ/1,000 ML BAG IV SCH ×2 (03:48→14:49)
[2021-11-21 07:00] LABS: Hematocrit (blood only) 33.2 % (34.1-44.9); Hemoglobin 11.4 g/dl (12.0-16.0); Mean Corpuscular Hemoglobin 31.1 pg (25.0-34.0); Mean Corpuscular Hgb Conc 34.3 g/dL (32.0-36.0); Mean Corpuscular Volume 90.5 fL (80.0-100.0); Mean Platelet Volume 8.4 fL (9.4-12.3); Platelet Count 317 K/uL (130-400); RDW Coefficient of Variation 13.2 % (11.5-14.5); RDW Standard Deviation 44.2 fL (36.4-46.3); Red Blood Count 3.67 M/uL (3.93-5.22); White Blood Count 6.17 K/ul (4.8-10.8)
[2021-11-21 07:28] LABS: BUN Creatinine Ratio 14.3 (10-20); Calcium 8.9 mg/dl (8.5-10.1); Creatinine Clr Calc Pharmacy 58.9 ml/min; Est GFR (African American) 100.6 ml/min; Est GFR (Non-African American) 86.8 ml/min; Magnesium 1.4 mg/dl (1.7-2.4); Phosphorus 2.6 mg/dl (2.5-4.9); Potassium 3.9 mmol/L (3.5-5.1)
[2021-11-21] MEDS: amLODIPine BESYLATE 5 MG TAB PO SCH (08:26)
[2021-11-21] MEDS: METOPROLOL SUCC 25MG EXT REL TAB PO SCH (08:27)
[2021-11-21] MEDS: LOSARTAN/HCTZ 50/12.5MG TAB PO SCH ×2 (08:27→21:03)
--- NOTE | 2021-11-21 10:48 | XRay Report ---
KUB HISTORY: Small bowel obstruction. Follow-up. COMPARISON: KUB 11/20/2021. FINDINGS: Nasogastric tube terminates at the distal stomach. This remains unchanged. No dilated loops of small bowel identified. There is contrast located throughout the nondistended colon. A surgical c lip is seen within the cecum. No renal calculi. No ureteral calculi. No pneumoperitoneum or pneumato sis. IMPRESSION: 1. Nasogastric tube terminates at the distal stomach. This remains unchanged. 2. No significant dilated loops of small bowel identified at this time. ACT 112: Negative or not required by law. Electronically signed by: Nilton Bermeo M.D. 11/21/2021 10:47 AM
[2021-11-21] MEDS ORDERED: PANTOprazole 40 MG in SYRINGE 0 ML IV SCH (11:00)
--- NOTE | 2021-11-21 11:02 | Surgery Progress Note ---
Date of Service November 21, 2021 Assessment & Plan (1) Small bowel obstruction: Plan: Her abdominal exam is now complete benign and she is not distended Contrast remains in her colon and has no significant small bowel dilation I think a gastroenterology evaluation is warranted as she does have chronic constipation at baseline and it seems that her small bowel obstruction is resolving We will remove the NG tube today and she can have sips of clears but would not a dvance further than that today We will continue to follow the patient (2) Chronic constipation: Admission and Anticipated Discharge Date Admission Date: November 16, 2021 Subjective Patient seen and examined. She did have a bowel movement with her enema yesterday. Denies any nausea or vomiting. Vital signs remained stable. Afebrile. Review of Systems Constitutional: no fever and no chills Physical Exam Constitutional: WD/WN, vitals as above Gastrointestinal (Abdomen): Inspection/Auscultation: abdomen normal to inspection; abdomen not distended Percussion/Palpation: abdomen soft; abdomen nontender and no guarding Results & Data ([facility]) Vital Signs (Past 12 Hours) Vital Signs Temp Pulse Resp BP Pulse Ox O2 Del Method 11/21/21 08:00 36.7 C 79 18 170/77 H 97 Room Air PG Care Time/CCT Total # of Minutes Spent Total Time Spent with Patient: Total time spent is greater than 50% in coordination of care (as documented) at patient's floor/unit and/or counseling patient: Coding Level of Care Code 76154 Subseq Hosp Care Lvl 1 Diagnoses Small bowel obstruction K56.609 Chronic constipation K59.09
--- NOTE | 2021-11-21 11:15 | Communication Note ---
Date of Service: November 21, 2021 GI received a consult for this 80 yo patient known to our group for constipation and rectal prolapse. Unfortunately, patient has been on an adequate bowel regimen and her case was escalated to colorectal surgery. She was seen for colorectal surgery at [facility] for this issue and recommendations were made for pelvic floor PT and plans to evaluate with urogynecology for possible intervention. She has follow-up planned with them. Discussed with Dr. Yoo. At the present time, there is little additional to offer from a GI standpoint for this issue. Would increase her Linzess at home to 290 mcg if tolerated, Continue Miralax 17 gm TID, increase Colace to 100 mg BID, and continue Psyllium powder 1 TBSP daily. Would advise patient follow-up with colorectal surgery upon discharge and proceed with pelvic floor PT as they previously recommended. Her current situation has exceeded the capability of GI medicine and will require further colorectal surgery intervention. Agree with ELOISE Leslie as above F/U with colorectal surgery as outpatient, or transfer patient if needed for more emergent intervention.
--- NOTE | 2021-11-21 16:42 | Hospitalist Progress Note ---
Date of Service November 21, 2021 Assessment & Plan (1) Small bowel obstruction: Plan: History of BYRON with bilateral oophorectomy. This is patient's 2nd SBO in life, last was in May 2021. After last SBO, reportedly had a colonoscopy that was normal. - CT AP on 11/18 showed that contrast has passed into the ileum on CT, and into the cecum and transverse colon on KUB on 11/19. - Gen Surg consulted, appreciate their recommendations: Continue conservative measures, and continue to evaluate for need for ex lap. - Continue normal saline with added potassium at 100 cc/hr. - Now taking sips of clears and feels good, but rectal prolapse may be causing more trouble. (2) Rectal prolapse: Plan: Was seen by [facility] for possible rectal prolapse. From her report, colorectal provider wasn't sure it was a rectal prolapse and wanted to see her back again. GI consulted in hospital and recommend: - Continue Miralax 17 gm TID, increase Colace to 100 mg BID, and continue Psyllium powder 1 TBSP daily. - Increase Linzess as outpatient. - Will try to reach out to [facility] (3) Hypertension: Plan: BP stable at 160/75 today. - Continue losartan/HCTZ, amlodipine, and metoprolol. - Clamp NG tube for 1 hour after. (4) Asthma: Plan: Chronic, well controlled. - Continue Flovent and albuterol PRN. (5) Anxiety: Plan: Chronic. - Lorazepam 0.5mg daily as needed. - Trazodone qHS for insomnia. - Recommend follow up with PCP/counseling services for illness-related depression. (6) Diabetes mellitus: Plan: Last HgbA1C in May 2021 = 6.6%. - Continue gabapentin. - Monitor blood sugars -> 74 - 90 in last 24 hours. Plan Code Status: FULL CODE DVT ppx - SCDs; ambulate on demand, as patient is taking walks multiple times a day to try to relieve her SBO Admission and Anticipated Discharge Date Admission Date: November 16, 2021 Subjective Doing fairly well today. Ate broth and felt great. No abdominal pain, but overall still not having much of a bowel movement. Physical Exam Constitutional: WD/WN, vitals as above Eyes: EOM intact bilaterally; no conjunctival abnormality ENMT: external ear and nose normal, oropharynx normal Neck: trachea midline, no thyromegaly normal visual inspection Respiratory: normal respiratory effort, lungs clear to auscultation no respiratory distress Cardiovascular: RRR, no murmur, no edema Gastrointestinal (Abdomen): Inspection/Auscultation: + hypoactive bowel sounds; abdomen not distended and no abdominal edema Percussion/Palpation: abdomen soft; abdomen nontender, no guarding and abdomen not rigid Musculoskeletal: no cyanosis or clubbing, extremities motor strength 5/5 Skin: no rashes, warm and dry Neurologic: moves all extremities and awake Psychiatric: Orientation: alert, oriented to person and cooperative Results & Data Results & Data ([facility]) Vital Signs (Past 12 Hours) Vital Signs Temp Pulse Resp BP Pulse Ox O2 Del Method 11/21/21 08:00 36.7 C 79 18 170/77 H 97 Room Air PG Care Time/CCT Total # of Minutes Spent Total Time Spent with Patient: Total time spent is greater than 50% in coordination of care (as documented) at patient's floor/unit and/or counseling patient: Coding Level of Care Code 40600 Subseq Hosp Care Lvl 2 Diagnoses Small bowel obstruction K56.609 Rectal prolapse K62.3 Hypertension I10 Asthma J45.909 Anxiety F41.9 Diabetes mellitus E11.9
[2021-11-21] MEDS: PSYLLIUM or GUAR GUM FIBER POWDER PACKET PO SCH (18:00)
[2021-11-21] MEDS: traZODone HCL 50 MG TAB PO SCH (21:04)
[2021-11-21] MEDS: POLYETHYLENE (MIRALAX) 17 GM PACK PO SCH (21:05)
[2021-11-21] MEDS: GABAPENTIN 100 MG CAP PO SCH (21:05)
[2021-11-21] MEDS: DOCUSATE SODIUM 100 MG CAP PO SCH (21:09)
[2021-11-21] MEDS: HYDROmorphone INJ 0.5 MG/0.5 ML SYR IV PRN (22:31)
[2021-11-22] MEDS: NSS + 20MEQ KCL 20 MEQ/1,000 ML BAG IV SCH ×3 (00:52→21:09)
[2021-11-22 07:05] LABS: Hematocrit (blood only) 34.3 % (34.1-44.9); Hemoglobin 11.8 g/dl (12.0-16.0); Mean Corpuscular Hgb Conc 34.4 g/dL (32.0-36.0); Mean Platelet Volume 8.3 fL (9.4-12.3); Platelet Count 335 K/uL (130-400); Red Blood Count 3.81 M/uL (3.93-5.22)
[2021-11-22 07:30] LABS: BUN Creatinine Ratio 7.9 (10-20); Calcium 9.4 mg/dl (8.5-10.1); Creatinine Clr Calc Pharmacy 52.3 ml/min; Est GFR (African American) 96.8 ml/min; Est GFR (Non-African American) 83.5 ml/min; Magnesium 1.4 mg/dl (1.7-2.4); Potassium 4.1 mmol/L (3.5-5.1)
[2021-11-22] MEDS: LOSARTAN/HCTZ 50/12.5MG TAB PO SCH ×2 (08:25→21:11)
[2021-11-22] MEDS: METOPROLOL SUCC 25MG EXT REL TAB PO SCH (08:25)
[2021-11-22] MEDS: amLODIPine BESYLATE 5 MG TAB PO SCH (08:25)
[2021-11-22] MEDS: POLYETHYLENE (MIRALAX) 17 GM PACK PO SCH ×3 (08:25→21:10)
[2021-11-22] MEDS: PSYLLIUM or GUAR GUM FIBER POWDER PACKET PO SCH (08:26)
[2021-11-22] MEDS: DOCUSATE SODIUM 100 MG CAP PO SCH ×2 (08:34→21:14)
--- NOTE | 2021-11-22 09:54 | Surgery Progress Note ---
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 Yoo agree to start po meds but probably hold fiber for now Admission and Anticipated Discharge Date Admission Date: November 16, 2021 Supervising Physician Co-Signing Physician Notes I personally saw and evaluated the patient with Steven Norris PA-C and agree with the assessment and plan. 80-year-old female with small bowel obstruction, resolving She is tolerating her clear liquids since NG tube removal yesterday Still only having bowel movements with enemas Her abdominal exam remains benign We will continue to follow, but no plans for any exploration at this time Subjective abdomen feels about the same, no nausea since NG removed yesterday, tolerating clear liquids, BM have been only after enemas Physical Exam Gastrointestinal (Abdomen): Inspection/Auscultation: abdomen not distended Percussion/Palpation: + abdomen tender (minimal) and abdomen soft Results & Data ([facility]) Vital Signs (Past 12 Hours) Vital Signs Temp Pulse Resp BP Pulse Ox O2 Del Method 11/22/21 06:41 36.9 C 75 18 148/74 H 97 Room Air 11/21/21 23:29 36.9 C 73 18 132/66 96 Room Air PG Care Time/CCT Total # of Minutes Spent Total Time Spent with Patient: Total time spent is greater than 50% in coordination of care (as documented) at patient's floor/unit and/or counseling patient: Coding Level of Care Code 29791 Subseq Hosp Care Lvl 1 Diagnoses Small bowel obstruction K56.609
--- NOTE | 2021-11-22 13:16 | Hospitalist Progress Note ---
Date of Service November 22, 2021 Assessment & Plan (1) Small bowel obstruction: Plan: History of BYRON with bilateral oophorectomy. This is patient's 2nd SBO in life, last was in May 2021. After last SBO, reportedly had a colonoscopy that was normal. - CT AP on 11/18 showed that contrast has passed into the ileum on CT, and into the cecum and transverse colon on KUB on 11/19. - Gen Surg consulted, appreciate their recommendations: Continue conservative measures. - Continue normal saline with added potassium at 100 cc/hr. - Now taking sips of clears and feels good, but rectal prolapse may be causing more trouble. Added back Miralax and docusate on 11/21. Surgery felt Metamucil might be too much and canceled this. (2) Rectal prolapse: Plan: Was seen by [facility] for possible rectal prolapse. From her report, colorectal provider wasn't sure it was a rectal prolapse and wanted to see her back again. GI consulted in hospital and recommend: - Restarted Miralax 17 gm TID, increase Colace to 100 mg BID on 11/21 -> Hold Psyllium powder 1 TBSP daily per surgery. - Increase Linzess as outpatient. - Will try to reach out to [facility] (3) Hypertension: Plan: BP stable at 150/75 today. - Continue losartan/HCTZ, amlodipine, and metoprolol. (4) Asthma: Plan: Chronic, well controlled. - Continue Flovent and albuterol PRN. (5) Anxiety: Plan: Chronic. - Lorazepam 0.5mg daily as needed. - Trazodone qHS for insomnia. - Recommend follow up with PCP/counseling services for illness-related depression. (6) Diabetes mellitus: Plan: Last HgbA1C in May 2021 = 6.6%. - Continue gabapentin. - Monitor blood sugars -> 74 - 90 in last 24 hours. Plan Code Status: FULL CODE DVT ppx - SCDs; ambulate on demand Admission and Anticipated Discharge Date Admission Date: November 16, 2021 Subjective Having less nausea and abdominal pain, but still not passing much in the way of BMs. Had an enema earlier today and only passed the same fluid back out. Physical Exam Constitutional: WD/WN, vitals as above Eyes: EOM intact bilaterally; no conjunctival abnormality ENMT: external ear and nose normal, oropharynx normal Neck: trachea midline, no thyromegaly normal visual inspection Respiratory: normal respiratory effort, lungs clear to auscultation no respiratory distress Cardiovascular: RRR, no murmur, no edema Gastrointestinal (Abdomen): Inspection/Auscultation: + hypoactive bowel sounds; abdomen not distended and no abdominal edema Percussion/Palpation: abdomen soft; abdomen nontender, no guarding and abdomen not rigid Musculoskeletal: no cyanosis or clubbing, extremities motor strength 5/5 Skin: no rashes, warm and dry Neurologic: moves all extremities and awake Psychiatric: Orientation: alert, oriented to person and cooperative Results & Data Results & Data ([facility]) Vital Signs (Past 12 Hours) Vital Signs Temp Pulse Resp BP Pulse Ox O2 Del Method 11/22/21 06:41 36.9 C 75 18 148/74 H 97 Room Air PG Care Time/CCT Total # of Minutes Spent Total Time Spent with Patient: Total time spent is greater than 50% in coordination of care (as documented) at patient's floor/unit and/or counseling patient: Coding Level of Care Code 97969 Subseq Hosp Care Lvl 2 Diagnoses Small bowel obstruction K56.609 Rectal prolapse K62.3 Hypertension I10 Asthma J45.909 Anxiety F41.9 Diabetes mellitus E11.9
[2021-11-22] MEDS: traZODone HCL 50 MG TAB PO SCH (21:10)
[2021-11-22] MEDS: GABAPENTIN 100 MG CAP PO SCH (21:11)
[2021-11-23] MEDS: NSS + 20MEQ KCL 20 MEQ/1,000 ML BAG IV SCH (06:26)
[2021-11-23 07:32] LABS: Hematocrit (blood only) 33.9 % (34.1-44.9); Hemoglobin 11.7 g/dl (12.0-16.0); Mean Corpuscular Hemoglobin 30.7 pg (25.0-34.0); Mean Corpuscular Hgb Conc 34.5 g/dL (32.0-36.0); Mean Platelet Volume 8.6 fL (9.4-12.3); Platelet Count 310 K/uL (130-400); RDW Standard Deviation 42.4 fL (36.4-46.3); Red Blood Count 3.81 M/uL (3.93-5.22)
[2021-11-23 08:00] LABS: BUN Creatinine Ratio 3.7 (10-20); Creatinine Clr Calc Pharmacy 61.1 ml/min; Est GFR (African American) 101.9 ml/min; Est GFR (Non-African American) 87.9 ml/min; Potassium 3.6 mmol/L (3.5-5.1)
[2021-11-23 09:10] LABS: Magnesium 1.3 mg/dl (1.7-2.4)
[2021-11-23] MEDS: POLYETHYLENE (MIRALAX) 17 GM PACK PO SCH ×3 (09:29→20:54)
[2021-11-23] MEDS: DOCUSATE SODIUM 100 MG CAP PO SCH ×2 (09:29→20:58)
[2021-11-23] MEDS: METOPROLOL SUCC 25MG EXT REL TAB PO SCH (09:29)
[2021-11-23] MEDS: SOD PHOSPHATE/SOD BIPHOSPHATE ENEMA 132 ML BTL PR SCH (09:29)
[2021-11-23] MEDS: LOSARTAN/HCTZ 50/12.5MG TAB PO SCH ×2 (09:29→20:52)
[2021-11-23] MEDS: SENNA 8.6 MG TAB PO SCH ×2 (10:03→20:54)
--- NOTE | 2021-11-23 11:29 | Surgery Progress Note ---
Date of Service November 23, 2021 Assessment & Plan (1) Small bowel obstruction: Plan: She continues to improve slowly at this point it seems her small bowel obstruction has resolved We did discuss with medicine her treatment plan and they are going to stop her amlodipine, start senna and continue the daily enemas She can trial full liquids today if she would like We will continue to follow Admission and Anticipated Discharge Date Admission Date: November 16, 2021 Subjective Patient seen and examined. Tolerating clears without nausea or vomiting. Minimal abdominal pain. She continues to have some bowel movements with help with enemas. Afebrile. Review of Systems Constitutional: no fever and no chills Physical Exam Constitutional: WD/WN, vitals as above Gastrointestinal (Abdomen): Inspection/Auscultation: abdomen normal to inspection; abdomen not distended Percussion/Palpation: abdomen soft; abdomen nontender and no guarding Results & Data ([facility]) Vital Signs (Past 12 Hours) Vital Signs Temp Pulse Resp BP Pulse Ox O2 Del Method 11/23/21 07:58 37.0 C 72 18 148/73 H 94 Room Air PG Care Time/CCT Total # of Minutes Spent Total Time Spent with Patient: Total time spent is greater than 50% in coordination of care (as documented) at patient's floor/unit and/or counseling patient: Coding Level of Care Code 43261 Subseq Hosp Care Lvl 1 Diagnoses Small bowel obstruction K56.609
--- NOTE | 2021-11-23 14:08 | Hospitalist Progress Note ---
Date of Service November 23, 2021 Assessment & Plan (1) Small bowel obstruction: Plan: History of BYRON with bilateral oophorectomy. This is patient's 2nd SBO in life, last was in May 2021. After last SBO, reportedly had a colonoscopy that was normal. - CT AP on 11/18 showed that contrast has passed into the ileum on CT, and into the cecum and transverse colon on KUB on 11/19. - Gen Surg consulted, appreciate their recommendations: Continue conservative measures. - Continue normal saline with added potassium at 100 cc/hr. - Now taking sips of clears and feels good, but rectal prolapse +/- colonic dysmotility may be causing more trouble. Added back Miralax and docusate on 11/21. -> Discussed with [facility] ([facility]) on 11/23. Is not sure she actually has rectal prolapse vs. large internal hemorrhoid that is prolapsing. Thinks this is maybe poor colonic motility. Recommends the below plan. (2) Rectal prolapse: Plan: Was seen by [facility] for possible rectal prolapse. From her report, colorectal provider wasn't sure it was a rectal prolapse and wanted to see her back again. GI consulted in hospital and recommend: - Restarted Miralax 17 gm TID, increase Colace to 100 mg BID on 11/21 -> Hold Psyllium powder 1 TBSP daily per surgery. - Increase Linzess as outpatient. - Discussed with [facility] ([facility]). On 11/23: * Stop amlodipine * Start senna * Advance diet * Daily enemas (3) Hypertension: Plan: BP stable at 150/75 today. - Continue losartan/HCTZ and metoprolol. - Stopped amlodipine on 11/23 in thought it might be slowing colonic motility. (4) Asthma: Plan: Chronic, well controlled. - Continue Flovent and albuterol PRN. (5) Anxiety: Plan: Chronic. - Lorazepam 0.5mg daily as needed. - Trazodone qHS for insomnia. - Recommend follow up with PCP/counseling services for illness-related depression. (6) Diabetes mellitus: Plan: Last HgbA1C in May 2021 = 6.6%. - Continue gabapentin. - Monitor blood sugars -> 74 - 90 in last 24 hours. Plan Code Status: FULL CODE DVT ppx - SCDs; ambulate on demand Admission and Anticipated Discharge Date Admission Date: November 16, 2021 Subjective Stable today. Feeling some better. Still no pain or nausea. Reports no fevers/chills, chest pain, shortness of breath, abdominal pain, nausea, or vomiting. Physical Exam Constitutional: WD/WN, vitals as above Eyes: EOM intact bilaterally; no conjunctival abnormality ENMT: external ear and nose normal, oropharynx normal Neck: trachea midline, no thyromegaly normal visual inspection Respiratory: normal respiratory effort, lungs clear to auscultation no respiratory distress Cardiovascular: RRR, no murmur, no edema Gastrointestinal (Abdomen): Inspection/Auscultation: + hypoactive bowel sounds; abdomen not distended and no abdominal edema Percussion/Palpation: abdomen soft; abdomen nontender, no guarding and abdomen not rigid Musculoskeletal: no cyanosis or clubbing, extremities motor strength 5/5 Skin: no rashes, warm and dry Neurologic: moves all extremities and awake Psychiatric: Orientation: alert, oriented to person and cooperative Results & Data Results & Data ([facility]) Vital Signs (Past 12 Hours) Vital Signs Temp Pulse Resp BP Pulse Ox O2 Del Method 11/23/21 07:58 37.0 C 72 18 148/73 H 94 Room Air PG Care Time/CCT Total # of Minutes Spent Total Time Spent with Patient: Total time spent is greater than 50% in coordination of care (as documented) at patient's floor/unit and/or counseling patient: Coding Level of Care Code 80194 Subseq Hosp Care Lvl 2 Diagnoses Small bowel obstruction K56.609 Rectal prolapse K62.3 Hypertension I10 Asthma J45.909 Anxiety F41.9 Diabetes mellitus E11.9
[2021-11-23] MEDS: MAGNESIUM SULFATE / D5W 1 GM/100 ML BAG IV SCH ×4 (17:34→23:31)
[2021-11-23] MEDS: GABAPENTIN 100 MG CAP PO SCH (20:52)
[2021-11-23] MEDS: traZODone HCL 50 MG TAB PO SCH (20:58)
[2021-11-24 06:20] LABS: Hematocrit (blood only) 29.7 % (34.1-44.9); Hemoglobin 10.5 g/dl (12.0-16.0); Mean Corpuscular Hemoglobin 31.2 pg (25.0-34.0); Mean Corpuscular Hgb Conc 35.4 g/dL (32.0-36.0); Mean Corpuscular Volume 88.1 fL (80.0-100.0); Mean Platelet Volume 8.6 fL (9.4-12.3); Platelet Count 254 K/uL (130-400); RDW Coefficient of Variation 12.7 % (11.5-14.5); RDW Standard Deviation 40.9 fL (36.4-46.3); Red Blood Count 3.37 M/uL (3.93-5.22); White Blood Count 4.04 K/ul (4.8-10.8)
[2021-11-24 06:54] LABS: BUN Creatinine Ratio 5.4 (10-20); Creatinine Clr Calc Pharmacy 58.9 ml/min; Est GFR (African American) 100.6 ml/min; Est GFR (Non-African American) 86.8 ml/min; Potassium 3.3 mmol/L (3.5-5.1)
[2021-11-24] MEDS: LOSARTAN/HCTZ 50/12.5MG TAB PO SCH ×2 (09:03→21:01)
[2021-11-24] MEDS: METOPROLOL SUCC 25MG EXT REL TAB PO SCH (09:03)
[2021-11-24] MEDS: SENNA 8.6 MG TAB PO SCH ×2 (09:03→21:00)
[2021-11-24] MEDS: POLYETHYLENE (MIRALAX) 17 GM PACK PO SCH ×3 (09:03→21:01)
[2021-11-24] MEDS: SOD PHOSPHATE/SOD BIPHOSPHATE ENEMA 132 ML BTL PR SCH ×2 (09:04→11:23)
[2021-11-24] MEDS: DOCUSATE SODIUM 100 MG CAP PO SCH ×2 (09:13→21:57)
--- NOTE | 2021-11-24 10:21 | Surgery Progress Note ---
Date of Service November 24, 2021 Assessment & Plan (1) Small bowel obstruction: Plan: She continues to improve slowly with regard to her small bowel obstruction and she is tolerating full liquids Can advance her to a low fiber diet and discharge her if she tolerates this It seems as though her small bowel obstruction has resolved, however she does have baseline intestinal dysmotility which she has been seeing GI for many months Unfortunately there is nothing I am able to offer her surgically at this time She is going to follow-up with her colorectal surgeon that she was seeing as an outpatient We will continue to follow while in the hospital Admission and Anticipated Discharge Date Admission Date: November 16, 2021 Subjective Patient seen and examined. She has no nausea or vomiting. She continues to only have bowel movements with enemas. Minimal abdominal pain. Review of Systems Constitutional: no fever and no chills Physical Exam Constitutional: WD/WN, vitals as above Gastrointestinal (Abdomen): Inspection/Auscultation: abdomen normal to inspection; abdomen not distended Percussion/Palpation: abdomen soft; abdomen nontender and no guarding Results & Data ([facility]) Vital Signs (Past 12 Hours) Vital Signs Temp Pulse Resp BP Pulse Ox O2 Del Method 11/24/21 07:48 37.0 C 67 18 153/76 H 96 Room Air PG Care Time/CCT Total # of Minutes Spent Total Time Spent with Patient: Total time spent is greater than 50% in coordination of care (as documented) at patient's floor/unit and/or counseling patient: Coding Level of Care Code 94620 Subseq Hosp Care Lvl 1 Diagnoses Small bowel obstruction K56.609
--- NOTE | 2021-11-24 12:51 | Hospitalist Progress Note ---
Date of Service November 24, 2021 Assessment & Plan (1) Small bowel obstruction: Plan: History of BYRON with bilateral oophorectomy. This is patient's 2nd SBO in life, last was in May 2021. After last SBO, reportedly had a colonoscopy that was normal. - CT AP on 11/18 showed that contrast has passed into the ileum on CT, and into the cecum and transverse colon on KUB on 11/19. - Gen Surg consulted, appreciate their recommendations: Continue conservative measures. - Now taking full liquids. Feeling well, but still only passing a BM with the enema. -> Discussed with Rosario Lake ([facility]) on 11/23. Is not sure she actually has rectal prolapse vs. large internal hemorrhoid that is prolapsing. Thinks this is maybe poor colonic motility. Recommends the below plan. (2) Rectal prolapse: Plan: Was seen by [facility] for possible rectal prolapse. From her report, colorectal provider wasn't sure it was a rectal prolapse and wanted to see her back again. GI consulted in hospital and recommend: - Restarted Miralax 17 gm TID, increase Colace to 100 mg BID on 11/21 -> Hold Psyllium powder 1 TBSP daily per surgery. - Resume Linzess. - Discussed with [facility] (Rosario Lake). On 11/23: * Stop amlodipine * Start senna * Advance diet * Daily enemas (3) Hypertension: Plan: BP stable at 150/75 today. - Continue losartan/HCTZ and metoprolol. - Stopped amlodipine on 11/23 in thought it might be slowing colonic motility. 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 (4) Asthma: Plan: Chronic, well controlled. - Continue Flovent and albuterol PRN. (5) Anxiety: Plan: Chronic. - Lorazepam 0.5mg daily as needed. - Trazodone qHS for insomnia. - Recommend follow up with PCP/counseling services for illness-related depression. (6) Diabetes mellitus: Plan: Last HgbA1C in May 2021 = 6.6%. - Continue gabapentin. - Monitor blood sugars -> 74 - 90 in last 24 hours. Plan Code Status: FULL CODE DVT ppx - SCDs; ambulate on demand Admission and Anticipated Discharge Date Admission Date: November 16, 2021 Subjective Doing well today. No major change. Reports no fevers/chills, chest pain, shortness of breath, abdominal pain, nausea, or vomiting. Physical Exam Constitutional: WD/WN, vitals as above Eyes: EOM intact bilaterally; no conjunctival abnormality ENMT: external ear and nose normal, oropharynx normal Neck: trachea midline, no thyromegaly normal visual inspection Respiratory: normal respiratory effort, lungs clear to auscultation no respiratory distress Cardiovascular: RRR, no murmur, no edema Gastrointestinal (Abdomen): Inspection/Auscultation: + hypoactive bowel sounds; abdomen not distended and no abdominal edema Percussion/Palpation: abdomen soft; abdomen nontender, no guarding and abdomen not rigid Musculoskeletal: no cyanosis or clubbing, extremities motor strength 5/5 Skin: no rashes, warm and dry Neurologic: moves all extremities and awake Psychiatric: Orientation: alert, oriented to person and cooperative Results & Data Results & Data ([facility]) Vital Signs (Past 12 Hours) Vital Signs Temp Pulse Resp BP Pulse Ox O2 Del Method 11/24/21 09:00 Room Air 11/24/21 07:48 37.0 C 67 18 153/76 H 96 Room Air PG Care Time/CCT Total # of Minutes Spent Total Time Spent with Patient: Total time spent is greater than 50% in coordination of care (as documented) at patient's floor/unit and/or counseling patient: Coding Level of Care Code 49825 Subseq Hosp Care Lvl 2 Diagnoses Small bowel obstruction K56.609 Rectal prolapse K62.3 Hypertension I10 Asthma J45.909 Anxiety F41.9 Diabetes mellitus E11.9
--- NOTE | 2021-11-24 13:13 | XRay Report ---
XR KUB/Abdomen 1 view CLINICAL HISTORY: Large bowel obstructed TECHNIQUE: 1 view of the abdomen was obtained. Comparison: Comparison is made to abdomen radiograph 11/21/2021 FINDINGS: Lung bases are unremarkable. Degenerative changes are seen in the visualized skeleton. The bowel gas pattern is nonobstructive. Small stool burden is seen. IMPRESSION: No significant gaseous dilation of the large or small bowel. ACT 112: Negative or not required by law. Electronically signed by: Napoleon Palacios M.D. 11/24/2021 1:12 PM
[2021-11-24] MEDS ORDERED: ACETAMINOPHEN 325 MG TAB PO PRN (18:21)
[2021-11-24] MEDS: GABAPENTIN 100 MG CAP PO SCH (21:01)
[2021-11-24] MEDS: traZODone HCL 50 MG TAB PO SCH (21:57)
[2021-11-25] MEDS: DOCUSATE SODIUM 100 MG CAP PO SCH (08:12)
[2021-11-25] MEDS: POLYETHYLENE (MIRALAX) 17 GM PACK PO SCH (08:12)
[2021-11-25] MEDS: SENNA 8.6 MG TAB PO SCH (08:13)
[2021-11-25] MEDS: METOPROLOL SUCC 25MG EXT REL TAB PO SCH (08:13)
[2021-11-25] MEDS: LOSARTAN/HCTZ 50/12.5MG TAB PO SCH (08:13)
[2021-11-25] MEDS: SOD PHOSPHATE/SOD BIPHOSPHATE ENEMA 132 ML BTL PR SCH (08:46)
[2021-11-25] MEDS ORDERED: LINACLOTIDE 145 MCG CAPSULE PO SCH (09:00)
--- NOTE | 2021-11-25 16:33 | Discharge Summary ---
Date of Service November 25, 2021 Admission HPI Per Admitting Provider Britta Green is an 80yo female with history of DM, anxiety and HTN presenting with SBO. Patient developed fairly sudden onset of mid and LLQ abdominal pain on 11/15/21 evening. She had abdominal bloating and nausea as well. She passed some gas the morning of 11/15/21 but has not had a BM for over 3 days. No additional complaints - she denies chest pain, cough, SOB, fever or chills. Patient had an SBO in May 2021 which resolved with NGT and conservative measures. She was hospitalized for several days. No surgical intervention needed. She followed up with Dr. Yoo and had a colonoscopy performed on 07/06 which revealed 2-5 polyps which were removed, diverticulosis and non- bleeding internal hemorrhoids. Patient was continued on stool softeners and started on Linzess. In the ER she is afebrile, HD stable, NAD Er Course: Dilaudid, Zofran, NSS, Ativan Principal Diagnosis Small bowel obstruction Colonic dysmotility Rectal prolapse vs rectocele vs large internal hemorrhoid Discharge Exam Constitutional WD/WN, vitals as above Eyes EOM intact bilaterally; no conjunctival abnormality ENMT external ear and nose normal, oropharynx normal Neck trachea midline, no thyromegaly normal visual inspection Respiratory normal respiratory effort, lungs clear to auscultation no respiratory distress Cardiovascular RRR, no murmur, no edema Gastrointestinal (Abdomen) Inspection/Auscultation: + hypoactive bowel sounds; abdomen not distended and no abdominal edema Percussion/Palpation: abdomen soft; abdomen nontender, no guarding and abdomen not rigid Musculoskeletal no cyanosis or clubbing, extremities motor strength 5/5 Skin no rashes, warm and dry Neurologic moves all extremities and awake Psychiatric Orientation: alert, oriented to person and cooperative Discharge Data Allergies Allergy/AdvReac Type Severity Reaction Status Date / Time adhesive Allergy Unknown rash, Verified 11/16/21 03:04 redness,ITCHY bacitracin [From Polysporin] Allergy Unknown ITCHY RASH Verified 11/16/21 03:04 codeine Allergy Unknown NAUSEA AND Verified 11/16/21 03:04 VOMITING latex Allergy Unknown skin Verified 11/16/21 03:04 redness meperidine [From Demerol] Allergy Unknown NAUSEA AND Verified 11/16/21 03:04 VOMITING morphine Allergy Unknown NAUSEA Verified 11/16/21 03:04 VOMITING oxycodone [From Percocet] Allergy Unknown NAUSEA-PT Verified 11/16/21 03:04 UNSURE polymyxin B [From Polysporin] Allergy Unknown ITCHY RASH Verified 11/16/21 03:04 lisinopril AdvReac Unknown cough Verified 11/16/21 03:04 Consultations 11/16/21 05:49 ED Decision to Admit Stat 11/16/21 11:13 Consult General Surgery Routine 11/21/21 10:57 Consult Gastroenterology Routine Procedures Performed Operation Date: 11/19/21 07:30 <No data on this case meets the specified criteria> Ordered Studies 11/16/21 03:16 CT abd pelvis IV con only Urgent 11/18/21 13:22 CT abd pelvis oral and IV con Routine Hospital Course (1) Small bowel obstruction: History of BYRON with bilateral oophorectomy. This is patient's 2nd SBO in life, last was in May 2021. After last SBO, reportedly had a colonoscopy that was normal. - CT AP on 11/18 showed that contrast has passed into the ileum on CT, and into the cecum and transverse colon on KUB on 11/19. - Gen Surg consulted, appreciate their recommendations: Continue conservative measures. - Now taking full liquids. Feeling well, but still only passing a BM with the enema. -> Discussed with Rosario Lake ([facility]) on 11/23. Is not sure she actually has rectal prolapse vs. large internal hemorrhoid that is prolapsing. Thinks this is maybe poor colonic motility. Recommends the below plan. (2) Rectal prolapse: Was seen by [facility] for possible rectal prolapse. From her report, colorectal provider wasn't sure it was a rectal prolapse and wanted to see her back again. GI consulted in hospital and recommend: - Restarted Miralax 17 gm TID, increase Colace to 100 mg BID on 11/21 -> Hold Psyllium powder 1 TBSP daily per surgery. - Resume Linzess. - Discussed with [facility] (Rosario Lake). On 11/23: * Stop amlodipine * Start senna * Daily enemas if no BM in last 24 hours. -> On discharge, seemed to be having good BMs (soft, but not diarrhea). Tolerating full diet. Will f/u with [facility] surgeon and get referral to [facility] if still having issues. (3) Hypertension: BP stable at 150/75 today. - Continue losartan/HCTZ and metoprolol. - Stopped amlodipine on 11/23 in thought it might be slowing colonic motility. 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 (4) Asthma: Chronic, well controlled. - Continue Flovent and albuterol PRN. (5) Anxiety: Chronic. - Lorazepam 0.5mg daily as needed. - Trazodone qHS for insomnia. - Recommend follow up with PCP/counseling services for illness-related depression. (6) Diabetes mellitus: Last HgbA1C in May 2021 = 6.6%. - Continue gabapentin. - Monitor blood sugars -> 74 - 90 in last 24 hours. Plan Code Status: FULL CODE DVT ppx - SCDs; ambulate on demand Total Time Total Time Spent Total Time Spent (In Minutes): 45 Discharge Plan Discharge Items Patient Disposition: Home - Self-Care Reason For Visit: SBO Discharge Diagnosis: Small bowel obstruction, then large intestine (colon) motility issues Activity: Resume your previous activity Non-emergency contact: Primary Care Provider, Surgeon and Fixing Carpenter Call non-emergency contact if: your symptoms worsen and your pain is worsening Follow-up/Referrals: Jhony Wolf MD [Primary Care Provider] - Diet: Low Fiber Addtl Attending Provider Instructions: Ms. Green, Reza were admitted to the hospital with a small bowel obstruction. This is when the small bowel gets "kinked" and has trouble allowing food/liquid to pass through. We treated this with conservative measures including an NG tube and just not letting you eat/drink for a few days. Luckily, this resolved without surgery which is sometimes required. After your small bowel obstruction improved, you had some trouble with the large intestine. We believe there are two issues going on there: 1) Rectal prolapse / rectocele / internal hemorrhoid: Anatomically, you have some tissue that prolapses with bowel movements. Dr. Rosario Lake is fo llowing you for this. Please see her in December to discuss how you are doing and what the next diagnosis & treatment steps may be. I actually think this was *not* posing much a problem this admission. 2) Colonic dysmotility: What this means is that your large intestine (colon) does not squeeze quite as well as it should, so stool has a harder time passing through the ~5 ft of large intestine. For this, we asked GI to weigh in. They gave us some recommendations, including Linzess, Miralax, & Colace. We also stopped your amlodipine & started senna. You definitely need to continue the daily pelvic physical therapy. Finally, if you are not having BMs with all of this, you can try a daily enema to help "push" the pelvic floor muscles to relax. I know you are having some complex GI issues, and I am sorry for that. This is the absolute best medical advise I have at this time, and this is in discussion with all of your medical providers (two surgeons, the GI team, and myself). If you are still having issues when you see Dr. Lake, ask her to refer you to a [facility] G[facility] Mot[facility] specialist. Our GI team at [facility] is great, but they feel they have done all they can at this time. Pending Studies at Discharge: No Stand-Alone Forms: My [facility], Smoking Cessation Medications and DC Order Prescriptions: New Enema Disposable 19-7 gram/118 mL Enema 132 ml WV DAILY PRN (Reason: constipation) Qty: 15 0RF Rx Instructions: Use if you have not had a bowel movement in 24 hours. sennosides [Senokot] 8.6 mg Tablet 8.6 mg PO QAM Qty: 30 0RF Continued trazodone 50 mg tablet 25 mg PO HS Qty: 30 5RF Hold Instructions: not taking albuterol sulfate [ProAir HFA] 90 mcg/actuation HFA aerosol inhaler 2 puff INH Q6H PRN (Reason: shortness of breath or wheezing) Qty: 8 3RF (DME) OneTouch Ultra Test Strip See Rx Instructions .Route Qty: 100 5RF Rx Instructions: Test blood sugar once daily Dx:E11.9 (DME) blood-glucose meter [OneTouch Verio Meter] Misc See Rx Instructions .Route Qty: 1 0RF Rx Instructions: Test blood sugar once daily DX: E11.9 (DME) lancets [OneTouch UltraSoft Lancets] Misc See Rx Instructions .Route Qty: 100 5RF Rx Instructions: Test 1 x daily. Dx:E11.9 [id number]-[id number]-[id number] [Fioricet] 50-300-40 mg capsule 1 cap PO Q4H PRN (Reason: Headache) Flovent HFA 110 mcg/actuation HFA aerosol inhaler 1 puff inhalation BID PRN (Reason: Wheezing) Linzess 145 mcg capsule 145 mcg PO QAM Qty: 90 3RF docusate sodium [Stool Softener] 100 mg Capsule 100 mg PO QPM gabapentin 100 mg capsule 100 mg PO HS metoprolol succinate 25 mg tablet extended release 24 hr 25 mg PO QAM losartan-hydrochlorothiazide 50-12.5 mg tablet 1 tab PO BID polyethylene glycol 3350 [Miralax] 17 gram/dose Powder 17 g PO TID PRN (Reason: Constipation) Qty: 0 0RF camphor-menthol 0.2-3.5 % Gel 1 applic TOPICAL DIRECTED PRN (Reason: Pain) Rx Instructions: rub in gently and completely Discontinued Metamucil 3.4 gram/5.4 gram powder 1 tbsp PO DAILY Rx Instructions: mix into at least 8 oz of water or juice before administering amlodipine 5 mg tablet 5 mg PO QAM Discharge Orders: Discharge Order (Routine); Ordered 11/25/21 Ordered By: Cory Robertson/Other Patient Handouts: Low-Fiber Diet Admission Data Admit Date/Time: 11/16/21 06:02 Attending Provider: Cory De La Rosa Admit Provider: Mildred Miller Primary Care Provider: Jhony Wolf Other Providers: Mildred Miller ; Khanh Avalos ; Kane Yoo Other Interventions: Discharge Summary Assessment (RN) Last Done: 11/25/21 12:59 Coding Level of Care Code D/C DAY MANAGEMENT >30 MINS Diagnoses Small bowel obstruction K56.609 Rectal prolapse K62.3 Hypertension I10 Asthma J45.909 Anxiety F41.9 Diabetes mellitus E11.9
== END 2021-11-25 14:30 | disposition home or self-care (01) | DRG 389 ==
LOC: ED 02:43 → EDINP 06:02 → SUATTDRO 06:02 → 2N 11:07 → 2W 11-23 16:45
DX: I69.398 Other sequelae of cerebral infarction; E11.9 Type 2 diabetes mellitus without complications; K62.3 Rectal prolapse; I10 Essential (primary) hypertension; Z88.5 Allergy status to narcotic agent; K59.89 Other specified functional intestinal disorders; Z96.653 Presence of artificial knee joint, bilateral; K64.8 Other hemorrhoids; Z91.040 Latex allergy status; K59.09 Other constipation; K56.50 Intestinal adhesions [bands], unspecified as to partial versus complete obstruction; F41.9 Anxiety disorder, unspecified; J45.909 Unspecified asthma, uncomplicated; E87.1 Hypo-osmolality and hyponatremia

== ENCOUNTER 2022-01-25 19:47 | Inpatient (IN) ==
--- NOTE | 2022-01-25 20:05 | Emergency Department Note ---
Impression & Plan Acute hyponatremia, HTN (hypertension), Weakness, Headache ED Provider Note NAME: HORACE MARTIN AGE: 81 SEX: F : 1940 ARRIVES VIA: Ambulance INFORMANT: Patient ED PROVIDER(S): Moses Bingham DO CHIEF COMPLAINT: headache and HTN HPI: Patient is an 81-year-old female with a past medical history of hypertension, anxiety, SBO, asthma, hypertensive urgency that presents the ER for feeling weak and rundown. She admits to a posterior headache and neck pain. This all started tonight around 6 PM. Headache is very dull and is a 5 out of 10. No focal weakness or numbness in the arms or legs. She checked her blood pressure at home and was significantly elevated. She took her nighttime dose of her medication and it was still elevated following this consequently she came in. Denies any chest pain or shortness of breath. No nausea, vomiting or marco antonio rrhea. No dysuria, urgency or frequency. No other exacerbating or remitting factors. ROS: See above HPI for pertinent positives & negatives. A total of 10 systems reviewed and were otherwise negative. PAST MEDICAL HISTORY:See Below PAST SURGICAL HISTORY:See Below FAMILY HISTORY:See Below SOCIAL HISTORY:See Below HOME MEDICATIONS:See Below ALLERGIES:See Below VITALS:See Below PHYSICAL EXAMINATION: GENERAL: Sitting up in bed, alert, well appearing, well nourished, no distress, non-toxic EYE EXAM: normal conjunctiva. PERRL and EOM's intact. OROPHARYNX: mucous membranes are dry LUNGS: Clear to auscultation. Normal chest wall mechanics HEART: no murmurs, S1 normal and S2 normal ABDOMEN: abdomen soft, non-tender, normo-active bowel sounds, no masses, no rebound or guarding. BACK: Back is symmetrical on inspection and there is no deformity, no midline tenderness, no CVA tenderness. SKIN: no rashes and no bruising UPPER EXTREMITIES: upper extremities are grossly normal. LOWER EXTREMITIES: No pitting edema. NEURO EXAM: Normal sensorium, cranial nerves II-XII intact, normal speech, no weakness of arms, no weakness of legs. No drift. Finger to nose intact. Gross sensation intact. MEDICAL DECISION MAKING: Patient is an 81-year-old female who presents the ER for headache and elevated blood pressures and feeling weak and rundown. IV was established blood work was obtained. Labs show no significant leukocytosis or anemia. BMP with hyponatremia of 124. Chloride slightly low at 91. Creatinine was appropriate. LFTs bilirubin and troponin was negative. Lipase unremarkable. CT angios of the head and neck were clean. Chest x-ray was unremarkable. She was given a bolus of IV fluids. UA was not obtained while here in the ER. With the weakness and hyponatremia Case was discussed with Dr. Sariah Miller for further evaluation. She was given a dose of hydralazine as well while in the ER. Pressures trended down. Patient Dr. Miller were updated and will be admitted for further work-up Triage Nursing notes reviewed. Limited review of prior medical records performed Vital Signs: reviewed and remarkable for HTN Differential diagnosis: Infection, dehydration, metabolic abnormality, hypo/hyperglycemia, electrolyte disturbance, anemia, hypoxia, cardiac sources, intracerebral event, toxicologic, neurologic, as well as other pathologies. ER treatment provided: See below Diagnostics interpreted by me: ECG: Sinus rhythm rate 73 Normal axis No PVCs QTC 420 Cardiac Monitoring: An order was placed for continuous cardiac monitoring. The monitor shows a rate of 80 with sinus rhythm. Laboratory studies: As stated above and show below. Imaging studies: CT angios of the head and neck were negative Portable AP upright 1 view the chest was unremarkable Consultation(s): Discussed with Sariah Miller for further evaluation Procedures: none Critical Care: None Past Med/Surg History Medical History Actinic cheilitis Actinic keratosis Anxiety Asthma stable-LAST RESCUE INHALER USE 1 MONTH AGO Basal cell carcinoma Bladder prolapse Diabetes PCP has been monitoring. A1C has crept up to 6.8%, no medication NOW, just dietary modifications. History of basal cell carcinoma History of COVID-19 DX'D 11/2020 WHILE AT [facility] AFTER STROKE-HEADACHE, SINUS SYMPTOMS- RESOLVED History of melanoma History of squamous cell carcinoma Hypertension Left knee DJD Osteoarthritis SBO (small bowel obstruction) 05/2021- [facility] ADMISSION-NO SURGERY Stroke [id number] BOTH EYES-VISION REMAINS IMPAIRED-DOES NOT DRIVE, SHORT MEMORY IMPAIRMENT-NO ISSUES SINCE Visual loss Surgical History H/O cataract removal with insertion of prosthetic lens History of basal cell carcinoma (BCC) excision History of colonoscopy History of melanoma excision History of right knee joint replacement Right TKA: 09/21/14: SAB x1 attempt at L3/L4 + PNB at [facility] History of squamous cell carcinoma excision History of tonsillectomy History of total abdominal hysterectomy and bilateral salpingo-oophorectomy History of total knee replacement LEFT History of tubal ligation Nausea and vomiting after administration of anesthetic agent Status post right knee replacement Family History Father Prostate cancer Sister Family history of reaction to anesthesia PONV Other No family history of adverse response to anesthesia Denies family history of Ovarian cancer Diabetes Dyslipidemia Myocardial infarction Breast cancer COPD (chronic obstructive pulmonary disease) Colorectal cancer Social History Smoking Status: Never smoker Second Hand Exposure: No; Hx Alcohol Use: No Hx Substance Use: No Preferred Language: Hebrew Communication Ability: Effective Hearing Ability: Normal Classroom Coordinator Required: No Beliefs That Will Affect Care: [facility] Sam[facility]itan Beliefs: [employer] marital status: Current Living Situation: Spouse current occupational status: retired Feels Safe at Home: Yes Childhood Exposure to Second-Hand Smoke: Yes caffeine: Yes during the past year weight has: remained stable Dental Care, Regularly: Yes Seatbelt Use: always Sunscreen Use: Yes Assistive Devices: Cane, Glasses and Walker Allergies Allergies Allergy/AdvReac Type Severity Reaction Status Date / Time adhesive Allergy Intermediate rash, Verified 01/25/22 20:31 redness,ITCHY bacitracin [From Polysporin] Allergy Intermediate ITCHY RASH Verified 01/25/22 20:31 polymyxin B [From Polysporin] Allergy Intermediate ITCHY RASH Verified 01/25/22 20:31 latex Allergy Mild skin Verified 01/25/22 20:31 redness codeine AdvReac Intermediate NAUSEA AND Verified 01/25/22 20:31 VOMITING lisinopril AdvReac Intermediate cough Verified 01/25/22 20:31 meperidine [From Demerol] AdvReac Intermediate NAUSEA AND Verified 01/25/22 20:31 VOMITING morphine AdvReac Intermediate NAUSEA Verified 01/25/22 20:31 VOMITING oxycodone [From Percocet] AdvReac Intermediate NAUSEA-PT Verified 01/25/22 20:31 UNSURE Home Meds Home Medications Medication Instructions Recorded Confirmed docusate sodium 100 mg capsule 100 mg PO QPM 12/22/19 01/25/22 (Stool Softener) gabapentin 100 mg capsule 100 mg PO HS 06/04/21 01/25/22 losartan 50 mg-hydrochlorothiazide 1 tab PO BID 06/04/21 01/25/22 12.5 mg tablet metoprolol succinate 25 mg 25 mg PO QAM 06/04/21 01/25/22 tablet,extended release 24 hr sfgmygoxfa-ciyonpktjfibu-edmsjuzb 1 cap PO Q4H PRN Headache 06/15/21 01/25/22 50 mg-300 mg-40 mg capsule (Fioricet) fluticasone propionate 110 1 puff inhalation BID PRN Wheezing 06/15/21 01/25/22 mcg/actuation HFA aerosol inhaler (Flovent HFA) camphor-menthol 0.2 %-3.5 % 1 applic topical BID PRN Pain 01/25/22 01/25/22 topical gel sennosides 8.6 mg tablet (Senokot) See Rx Instructions .Route .COMPLEX 01/25/22 01/25/22 Previous Rx's Medication Instructions Recorded trazodone 50 mg tablet 25 mg PO HS #30 tabs 06/09/20 albuterol sulfate 90 mcg/actuation 2 puff inhalation Q6H PRN 01/06/21 aerosol inhaler (ProAir HFA) shortness of breath or wheezing #8 grams blood sugar diagnostic (OneTouch #100 ea 01/12/21 Ultra Test strips) blood-glucose meter (OneTouch #1 ea 01/12/21 Verio Meter) lancets (OneTouch UltraSoft #100 ea 01/12/21 Lancets) polyethylene glycol 3350 17 17 g PO TID PRN Constipation #0 06/10/21 gram/dose oral powder (Miralax) grams sodium phosphates 19 gram-7 132 ml HI DAILY PRN constipation 11/25/21 gram/118 mL enema (Enema #15 BTLS Disposable) linaclotide 145 mcg capsule 145 mcg PO QAM #90 caps 01/15/22 (Linzess) Results & Data (ED) Vital Signs Vital Signs - 24 hr 01/25/22 20:03 01/25/22 20:24 01/25/22 19:36 Temperature 37.4 C Temperature Source Oral Pulse Rate 74 74 Respiratory Rate 16 Respiratory Effort / Characteristics Non-Labored Non-Labored Respiratory Depth Normal Normal Respiratory Pattern Regular Blood Pressure 210/107 H Blood Pressure Mean 141 Pulse Oximetry 97 94 Oxygen Delivery Method Room Air Room Air Sepsis Recent Fever Within 48 Hours No Sepsis New/Unexplained Change in Mental Status No Sepsis Action Taken by Nursing No Action Required 01/25/22 21:43 Temperature Temperature Source Pulse Rate 74 Respiratory Rate Respiratory Effort / Characteristics Respiratory Depth Respiratory Pattern Blood Pressure 193/91 H Blood Pressure Mean 125 Pulse Oximetry Oxygen Delivery Method Sepsis Recent Fever Within 48 Hours Sepsis New/Unexplained Change in Mental Status Sepsis Action Taken by Nursing Laboratory Data Result diagrams: 01/25/22 19:53 01/25/22 19:53 Lab Results 01/25/22 01/25/22 01/25/22 Range/Units 19:53 19:53 20:21 WBC 6.08 (4.8-10.8) K/ul RBC 3.86 L (3.93-5.22) M/uL Hgb 12.2 (12.0-16.0) g/dl POC Hgb 12.9 (12.0-16.0) g/dl Hct 35.1 (34.1-44.9) % POC Hct 38 (37-47) % MCV 90.9 (80.0-100.0) fL MCH 31.6 (25.0-34.0) pg MCHC 34.8 (32.0-36.0) g/dL RDW Std Deviation 41.1 (36.4-46.3) fL RDW Coeff of Belkis 12.4 (11.5-14.5) % Plt Count 386 (130-400) K/uL MPV 8.6 L (9.4-12.3) fL Immature Gran % (Auto) 0.2 % Neut % (Auto) 60.8 % Lymph % (Auto) 28.0 % [place] % (Auto) 9.0 % Eos % (Auto) 1.0 % Baso % (Auto) 1.0 % Neut # (Auto) 3.70 (1.4-6.5) K/uL Lymph # (Auto) 1.70 (1.2-3.4) K/uL [place] # (Auto) 0.55 (0.24-0.82) K/uL Eos # (Auto) 0.06 (0-0.50) K/uL Baso # (Auto) 0.06 (0-0.2) K/uL Immature Gran # (Auto) 0.01 (0.00-0.02) K/uL POC Sodium 125 L (135-144) mmol/L Sodium 124 L (136-145) mmol/L POC Potassium 4.0 (3.3-5.0) mmol/L Potassium 4.1 (3.5-5.1) mmol/L POC Chloride 90 L (101-112) mmol/L Chloride 91 L (98-107) mmol/L Carbon Dioxide 24 (21-32) mmol/L POC Total CO2 24 (24-31) mmol/L Anion Gap 9 (3-11) POC Anion Gap 16.0 (16-25) mmol/L POC BUN 14 (7-18) mg/dl BUN 15 (6-23) mg/dl Creatinine 0.73 (0.6-1.2) mg/dl POC Creatinine 0.7 (0.6-1.3) mg/dl Est Cr Clr Drug Dosing 45.6 ml/min Est GFR ( Amer) 88.3 ml/min Est GFR (Non-Af Amer) 76.2 ml/min BUN/Creatinine Ratio 20.5 H (10-20) Glucose 147 H (70-99(Fasting)) mg/dl POC Glucose (other) 136 H (70-99) mg/dl Calcium 9.0 (8.5-10.1) mg/dl POC Ioniz Calcium Franko 1.15 (1.12-1.32) mmol/l Total Bilirubin 0.5 (0.2-1.0) mg/dl AST 19 (13-39) U/L ALT 14 (7-52) U/L Alkaline Phosphatase 92 (34-104) U/L Troponin I High Sens 7.6 (0-14) pg/ml Total Protein 7.2 (6.0-8.3) gm/dl Albumin 4.2 (3.4-5.0) gm/dl Globulin 3.0 (2.5-4.0) gm/dl Albumin/Globulin Ratio 1.4 (0.9-2) Lipase 27 (11-82) U/L Administered Medications Discontinued Medications Ioversol (Optiray 320 500ml) 103 ml IV ONCE ONE Stop: 01/25/22 20:54 Last Admin: 01/25/22 20:57 Dose: 103 ml Documented By: RICARDO Imaging Data Radiologist's Impression: Chest X-Ray 01/25/22 20:00 XR chest 1V portable CLINICAL HISTORY: Chest pain, nonspecific COMPARISON STUDY: Chest radiograph January 23, 2022. FINDINGS: Lung volumes are mildly diminished. Lungs are clear. There is no pneumothorax or pleural effusion. Cardiac size is normal. Mediastinal contours are normal. There is no evidence for pulmonary edema. IMPRESSION: No acute cardiopulmonary findings. No change in appearance of the chest. ACT 112: Negative or not required by law. Electronically signed by: Flex Alberto M.D. 01/25/2022 8:25 PM Discharge Plan Visit Data Chief Complaint: Hypertension ED Provider: Msoes Bingham Discharge Problem: Acute hyponatremia, HTN (hypertension), Weakness, Headache Forms Stand Alone Forms: [employer] Prescriptions Prescriptions: No Action trazodone 50 mg tablet 25 mg PO HS Qty: 30 5RF Hold Instructions: not taking albuterol sulfate [ProAir HFA] 90 mcg/actuation HFA aerosol inhaler 2 puff INH Q6H PRN (Reason: shortness of breath or wheezing) Qty: 8 3RF (DME) OneTouch Ultra Test Strip See Rx Instructions .Route Qty: 100 5RF Rx Instructions: Test blood sugar once daily Dx:E11.9 (DME) blood-glucose meter [OneTouch Verio Meter] [facility] [place] See Rx Instructions .Route Qty: 1 0RF Rx Instructions: Test blood sugar once daily DX: E11.9 (DME) lancets [OneTouch UltraSoft Lancets] [facility] [place] See Rx Instructions .Route Qty: 100 5RF Rx Instructions: Test 1 x daily. Dx:E11.9 sspqsdriwj-astywsltldevh-fvrg [Fioricet] 50-300-40 mg capsule 1 cap PO Q4H PRN (Reason: Headache) Flovent HFA 110 mcg/actuation HFA aerosol inhaler 1 puff inhalation BID PRN (Reason: Wheezing) Linzess 145 mcg capsule 145 mcg PO QAM Qty: 90 3RF docusate sodium [Stool Softener] 100 mg Capsule 100 mg PO QPM gabapentin 100 mg capsule 100 mg PO HS metoprolol succinate 25 mg tablet extended release 24 hr 25 mg PO QAM losartan-hydrochlorothiazide 50-12.5 mg tablet 1 tab PO BID Rx Instructions: PER PT "TOOK BOTH DOSES TODAY". 01/25/22. polyethylene glycol 3350 [Miralax] 17 gram/dose Powder 17 g PO TID PRN (Reason: Constipation) Qty: 0 0RF Enema Disposable 19-7 gram/118 mL Enema 132 ml HI DAILY PRN (Reason: constipation) Qty: 15 0RF Rx Instructions: Use if you have not had a bowel movement in 24 hours. sennosides [Senokot] 8.6 mg tablet See Rx Instructions .ROUTE .COMPLEX Rx Instructions: 8.6 mg orally; TAKES 8.6 MG QAM, THEN 17.2 MG AT HS. Biofreeze 0.2-3.5 % Gel 1 applic TOPICAL BID PRN (Reason: Pain) Rx Instructions: rub in gently and completely Referrals Referrals: Kailey Green MD [Primary Care Provider] -
[2022-01-25 20:25] LABS: Basophils # (auto) 0.06 K/uL (0-0.2); Eosinophils # (auto) 0.06 K/uL (0-0.50); Hematocrit (blood only) 35.1 % (34.1-44.9); Hemoglobin 12.2 g/dl (12.0-16.0); Immature Granulocytes # (auto) 0.01 K/uL (0.00-0.02); Immature Granulocytes % (auto) 0.2 %; Mean Corpuscular Hemoglobin 31.6 pg (25.0-34.0); Mean Corpuscular Hgb Conc 34.8 g/dL (32.0-36.0); Mean Corpuscular Volume 90.9 fL (80.0-100.0); Mean Platelet Volume 8.6 fL (9.4-12.3); Monocytes # (auto) 0.55 K/uL (0.24-0.82); Neutrophils % (auto) 60.8 %; Platelet Count 386 K/uL (130-400); RDW Coefficient of Variation 12.4 % (11.5-14.5); RDW Standard Deviation 41.1 fL (36.4-46.3); Red Blood Count 3.86 M/uL (3.93-5.22); White Blood Count 6.08 K/ul (4.8-10.8)
--- NOTE | 2022-01-25 20:27 | XRay Report ---
XR chest 1V portable CLINICAL HISTORY: Chest pain, nonspecific COMPARISON STUDY: Chest radiograph January 23, 2022. FINDINGS: Lung volumes are mildly diminished. Lungs are clear. There is no pneumothorax or pleural ef fusion. Cardiac size is normal. Mediastinal contours are normal. There is no evidence for pulmonary e jacklyn. IMPRESSION: No acute cardiopulmonary findings. No change in appearance of the chest. ACT 112: Negative or not required by law. Electronically signed by: Flex Alberto M.D. 01/25/2022 8:25 PM
[2022-01-25 20:33] LABS: iSTAT Creatinine 0.7 mg/dl (0.6-1.3); iSTAT Hemoglobin 12.9 g/dl (12.0-16.0); iSTAT Ionized Calcium 1.15 mmol/l (1.12-1.32)
[2022-01-25 20:42] LABS: Troponin I High Sensitivity 7.6 pg/ml (0-14)
[2022-01-25] MEDS ORDERED: OPTIRAY 320 500ml IV ONE (20:53)
[2022-01-25 21:01] LABS: Albumin Globulin Ratio 1.4 (0.9-2); Albumin Level 4.2 gm/dl (3.4-5.0); BUN Creatinine Ratio 20.5 (10-20); Bilirubin,Total 0.5 mg/dl (0.2-1.0); Creatinine Clr Calc Pharmacy 45.6 ml/min; Est GFR (African American) 88.3 ml/min; Est GFR (Non-African American) 76.2 ml/min; Potassium 4.1 mmol/L (3.5-5.1); Total Protein 7.2 gm/dl (6.0-8.3)
[2022-01-25] MEDS ORDERED: hydrALAZINE HCL 20 MG/ML VIAL IV STA (21:43)
[2022-01-25] MEDS ORDERED: SODIUM CHLORIDE 0.9% 500 ML IV ONE (21:43)
[2022-01-25] MEDS ORDERED: GABAPENTIN 100 MG CAP PO STA (23:08)
[2022-01-25] MEDS ORDERED: traZODone HCL 50 MG TAB PO STA (23:12)
--- NOTE | 2022-01-25 23:20 | History & Physical Report ---
Date of Service January 25, 2022 Assessment & Plan (1) Hyponatremia: Plan: Britta Green is an 81-year-old female with PMH of HTN, HLD, Diabetes (not on medication, diet-controlled), anxiety, asthma, h/o CVA, h/o melanoma, h/o basal cell carcinoma who presented due to feeling weak and having high BP readings at home. Found to be hyponatremic. Hyponatremia Sodium 124 on admission, down from 128 on 01/23, in Nov 2021 had been at 135 Urine osmolality 189, urine sodium 51 As mentioned in HPI, patient mentions history of low sodium specifically at [facility], though I was unable to access chart at this time recommend checking this in a.m. Patient seemingly euvolemic on exam Patient is on losartanhydrochlorothiazide at home, which will be held on admission will likely require alternate BP treatment to avoid recurrence of hyponatremia Due to thiazide use, above urine tests may warrant repetition if hyponatremia does not resolve TSH and a.m. cortisol ordered Fluid restrict to 1500 mL BMPs every 6 hours Hypertension Hypertensive urgency on arrival with BP of 210/107 BP improved to 160s over 80s with administration of hydralazine 10 mg IV x1 in ED Can consider additional hydralazine doses if blood pressure rises again As above losartanhydrochlorothiazide will be on hold consider alternative treatments in light of hyponatremia Continue metoprolol succinate Chronic constipation Patient uses Linzess, docusate, MiraLAX, Senokot at home States she gets very constipated if not on this regimen Continue Neuropathic pain in feet Gabapentin 100 mg at bedtime Asthma Fluticasone twice daily as needed, albuterol as needed Insomnia Trazodone 25 mg at bedtime DVT prophylaxis: Lovenox SQ Diet: Heart healthy, fluid restrict 1500 mils Dispo: Telemetry CODE STATUS: Full (2) HTN (hypertension): (3) Anxiety: (4) Insomnia: (5) Anxiety: (6) Chronic constipation: History of Present Illness Primary Care Provider: Kailey Green MD Britta Green is an 81-year-old female with PMH of HTN, HLD, Diabetes (not on medication, diet-controlled), anxiety, asthma, h/o CVA, h/o melanoma, h/o basal cell carcinoma who presented due to feeling weak and having high BP readings at home. She states that she has been feeling weak and rundown for the past few days. She did come into the ED on 01/23 for similar complaints. At that visit blood pressure was also initially elevated to 200s systolic but decreased to 150 systolic after a few hours in ED. She was sent home at that time with plans to follow-up with PCP. However, today she was feeling weaker and developed a dull headache. At that time she checked her blood pressure and found it to be elevated again. Upon arrival in the ED, patient had a blood pressure up to 210/107. Additionally, lab work was significant for a sodium level of 124, down from 128 on 01/23. Prior blood work in November 2021 showed normal sodium. Of note, patient did state that she had low sodium during the hospitalization at [facility] in the past and remembers receiving salt tabs at that time. I attempted to access [facility] chart but was unable to at this time. In the ED, patient received NSS 1 L bolus and hydralazine 10 mg IV x1. Her blood pressure steadily improved to 160s over 80s. Her headache did improve with blood pressure improvement. CTA head/neck was negative for any acute cerebral or vascular pathology, did show signs of acute sinusitis. However, patient denies congestion, cough, fever, chills or any other URI symptoms. Also denies chest pain, palpitation, shortness of breath, abdominal pain, diarrhea, rash. Allergies Allergy/AdvReac Type Severity Reaction Status Date / Time adhesive Allergy Intermediate rash, Verified 01/25/22 20:31 redness,ITCHY bacitracin [From Polysporin] Allergy Intermediate ITCHY RASH Verified 01/25/22 20:31 polymyxin B [From Polysporin] Allergy Intermediate ITCHY RASH Verified 01/25/22 20:31 latex Allergy Mild skin Verified 01/25/22 20:31 redness codeine AdvReac Intermediate NAUSEA AND Verified 01/25/22 20:31 VOMITING lisinopril AdvReac Intermediate cough Verified 01/25/22 20:31 meperidine [From Demerol] AdvReac Intermediate NAUSEA AND Verified 01/25/22 20:31 VOMITING morphine AdvReac Intermediate NAUSEA Verified 01/25/22 20:31 VOMITING oxycodone [From Percocet] AdvReac Intermediate NAUSEA-PT Verified 01/25/22 20:31 UNSURE Home Medications Medication Instructions Recorded Confirmed Type docusate sodium 100 mg capsule 100 mg PO QPM 12/22/19 01/25/22 History (Stool Softener) trazodone 50 mg tablet 25 mg PO HS #30 tabs 06/09/20 01/25/22 Rx albuterol sulfate 90 mcg/actuation 2 puff inhalation Q6H PRN 01/06/21 01/25/22 Rx aerosol inhaler (ProAir HFA) shortness of breath or wheezing #8 grams blood sugar diagnostic (OneTouch #100 ea 01/12/21 01/25/22 Rx Ultra Test strips) blood-glucose meter (OneTouch #1 ea 01/12/21 01/25/22 Rx Verio Meter) lancets (OneTouch UltraSoft #100 ea 01/12/21 01/25/22 Rx Lancets) gabapentin 100 mg capsule 100 mg PO HS 06/04/21 01/25/22 History losartan 50 mg-hydrochlorothiazide 1 tab PO BID 06/04/21 01/25/22 History 12.5 mg tablet metoprolol succinate 25 mg 25 mg PO QAM 06/04/21 01/25/22 History tablet,extended release 24 hr polyethylene glycol 3350 17 17 g PO TID PRN Constipation #0 06/10/21 01/25/22 Rx gram/dose oral powder (Miralax) grams qdgshnxuye-ounmivujenubf-ntweqqzo 1 cap PO Q4H PRN Headache 06/15/21 01/25/22 History 50 mg-300 mg-40 mg capsule (Fioricet) fluticasone propionate 110 1 puff inhalation BID PRN Wheezing 06/15/21 01/25/22 History mcg/actuation HFA aerosol inhaler (Flovent HFA) sodium phosphates 19 gram-7 132 ml OH DAILY PRN constipation 11/25/21 01/25/22 Rx gram/118 mL enema (Enema #15 BTLS Disposable) linaclotide 145 mcg capsule 145 mcg PO QAM #90 caps 01/15/22 01/25/22 Rx (Linzess) camphor-menthol 0.2 %-3.5 % 1 applic topical BID PRN Pain 01/25/22 01/25/22 History topical gel sennosides 8.6 mg tablet (Senokot) See Rx Instructions .Route .COMPLEX 01/25/22 01/25/22 History Past Med/Surg History Medical History Actinic cheilitis Actinic keratosis Anxiety Asthma stable-LAST RESCUE INHALER USE 1 MONTH AGO Basal cell carcinoma Bladder prolapse Diabetes PCP has been monitoring. A1C has crept up to 6.8%, no medication NOW, just dietary modifications. History of basal cell carcinoma History of COVID-19 DX'D 11/2020 WHILE AT [facility] AFTER STROKE-HEADACHE, SINUS SYMPTOMS- RESOLVED History of melanoma History of squamous cell carcinoma Hypertension Left knee DJD Osteoarthritis SBO (small bowel obstruction) 05/2021- [facility] ADMISSION-NO SURGERY Stroke [id number] BOTH EYES-VISION REMAINS IMPAIRED-DOES NOT DRIVE, SHORT MEMORY IMPAIRMENT-NO ISSUES SINCE Visual loss Surgical History H/O cataract removal with insertion of prosthetic lens History of basal cell carcinoma (BCC) excision History of colonoscopy History of melanoma excision History of right knee joint replacement Right TKA: 09/21/14: SAB x1 attempt at L3/L4 + PNB at [facility] History of squamous cell carcinoma excision History of tonsillectomy History of total abdominal hysterectomy and bilateral salpingo-oophorectomy History of total knee replacement LEFT History of tubal ligation Nausea and vomiting after administration of anesthetic agent Status post right knee replacement Family History Father Prostate cancer Sister Family history of reaction to anesthesia PONV Other No family history of adverse response to anesthesia Denies family history of Ovarian cancer Diabetes Dyslipidemia Myocardial infarction Breast cancer COPD (chronic obstructive pulmonary disease) Colorectal cancer Social History Smoking Status: Never smoker Second Hand Exposure: No; Hx Alcohol Use: No Hx Substance Use: No Preferred Language: Polish Communication Ability: Effective Hearing Ability: Normal Junior Architect Required: No Beliefs That Will Affect Care: None marital status: Current Living Situation: Spouse Current Living Situation Comment: indep with ADLs lives with spouse, pt does not drive current occupational status: retired Other Information That Helps Us Care for You: No Feels Safe at Home: Yes Safety Concerns: Feels Safe At This Time Childhood Exposure to Second-Hand Smoke: Yes caffeine: Yes during the past year weight has: remained stable Dental Care, Regularly: Yes Seatbelt Use: always Sunscreen Use: Yes Assistive Devices: Cane and Walker Assistive Devices Comment: cane and reading glasses, not brought with to hospital Review of Systems Review of Systems: per hpi Physical Exam Physical Exam: GENERAL: A&Ox3. NAD. HEENT: PERRL, EOMI. Moist mucous membranes. NECK: No JVD. No lymphadenopathy. CHEST/LUNGS: CTAB A/P. No crackles, wheezes, rales, rhonchi. HEART: RRR. No m/g/r. No carotid bruits. ABDOMEN: NT/ND, soft. BS+ x4 EXTREMITIES: No cyanosis, no clubbing, no edema. Strength 5/5 in all 4 extremities. SKIN: Warm and dry. No rashes or lesions. PSYCHIATRIC: Euthymic affect, no SI, no pressured speech, no hallucinations NEUROLOGIC: No FND Results & Data Results & Data ([facility]) Vital Signs (Past 12 Hours) Vital Signs Temp Pulse Resp BP Pulse Ox O2 Del Method 01/25/22 22:40 87 17 99 01/25/22 22:30 90 16 100 01/25/22 22:30 170/75 H 01/25/22 22:20 77 16 100 01/25/22 22:19 81 16 99 01/25/22 22:19 184/86 H 01/25/22 22:12 77 12 01/25/22 22:00 98 01/25/22 21:50 100 01/25/22 21:40 100 01/25/22 21:30 98 01/25/22 21:20 100 01/25/22 21:14 100 01/25/22 21:14 193/91 H 01/25/22 21:12 98 01/25/22 20:40 70 18 100 01/25/22 20:30 66 16 100 01/25/22 20:27 68 13 100 01/25/22 20:27 190/93 H 01/25/22 20:20 67 16 100 01/25/22 20:10 73 17 97 01/25/22 20:00 73 18 100 01/25/22 19:53 76 23 98 01/25/22 21:43 74 193/91 H 01/25/22 20:24 74 94 Room Air 01/25/22 20:03 37.4 C 74 16 210/107 H 97 Room Air Supervising Physician Co-Signing Physician Notes Agree with assessment and plan as above by Dr. Rodriguez. In brief, patient is an 81yo female presenting with HTN, hyponatremia with Hg=088 Resident Activity Tracking Resident Involvement: Resident Care Provided Care Provided: Adult Hospital Medicine
[2022-01-26] MEDS ORDERED: ALBUTEROL HFA 8 GM INHALER INH PRN (00:12)
[2022-01-26] MEDS ORDERED: ONDANSETRON INJ 2 MG/ML 2 ML VIAL IV PRN (00:12)
[2022-01-26] MEDS ORDERED: BUTALBITAL/ACETAMIN/CAFFEINE TAB PO PRN (00:20)
[2022-01-26] MEDS ORDERED: TROLAMINE SALICYLATE 10% CRM 255 APPLN/85 GM TUBE EXT PRN (00:21)
[2022-01-26] MEDS ORDERED: FLUTICASONE FUROATE 100MCG 14 PUFFS/INHALER INH PRN (00:21)
[2022-01-26] MEDS: POLYETHYLENE (MIRALAX) 17 GM PACK PO PRN ×3 (01:07→21:17)
[2022-01-26] MEDS: ACETAMINOPHEN 325 MG TAB PO PRN ×2 (01:07→21:05)
[2022-01-26 01:15] LABS: BUN Creatinine Ratio 19.6 (10-20); Calcium 9.2 mg/dl (8.5-10.1); Creatinine Clr Calc Pharmacy 56.9 ml/min; Est GFR (African American) 99.9 ml/min; Est GFR (Non-African American) 86.2 ml/min; Potassium 3.7 mmol/L (3.5-5.1)
--- NOTE | 2022-01-26 07:06 | CT Scan Report ---
CT angio head wo/w CLINICAL HISTORY: 81 years-old Female with rockwell htn. Acute hypertension with headache COMPARISON STUDY: CTA neck of same day , head CT 01/23/2022 TECHNIQUE: Unenhanced axial CT scan of the brain is performed. Subsequently, following the IV adminis tration of 103 cc of Optiray, CT angiogram of the brain was performed from the skull base to the vert ex. Images are reviewed in the axial, sagittal, and coronal planes. 3-D MIPS images are created and a ssessed. IV contrast was administered without complication. All measurements were obtained according to NASCET criteria. A dose lowering technique was utilized adhering to the principles of ALARA. CT DOSE: 932.84 mGy.cm FINDINGS: CT BRAIN: There is no acute intracranial hemorrhage, midline shift, hydrocephalus, intracranial mass, territori al ischemia or abnormal extra-axial collections. No abnormal intra-axial or extra-axial enhancement. Involutional changes of the brain parenchyma. Suggestion of mild chronic microvascular ischemic dise ase. Encephalomalacia of the right parietal lobe redemonstrated. Mastoid air cells and middle ear cav ities are clear. No calvarial fracture. Mild mucosal thickening of the dependent right maxillary sinu s. CT ANGIOGRAM OF THE BRAIN: The imaged bilateral internal carotid arteries are patent. The bilateral anterior and middle cerebral arteries are also patent. The vertebrobasilar system and posterior cerebral arteries are widely davidson nt. The distal left vertebral artery is diminutive in size, likely developmental. origin of the right posterior cerebral artery. There is mild multifocal luminal narrowing of the posterior cerebra l arteries. There is no aneurysm, high-grade stenosis, or proximal branch occlusion identified. Dural sinuses appear patent. IMPRESSION: 1. No acute intracranial abnormality. 2. Right parietal lobe encephalomalacia. 3. Unremarkable CTA of the head. ACT 112: Negative or not required by law. The above report was generated using voice recognition software. It may contain grammatical, syntax o r spelling errors. Electronically signed by: Boubacar Sales M.D. 01/26/2022 7:03 AM
--- NOTE | 2022-01-26 07:22 | Hospitalist Progress Note ---
Date of Service January 26, 2022 Assessment & Plan (1) Hyponatremia: Plan: Britta Green is an 81-year-old female with PMH of HTN, HLD, Diabetes (not on medication, diet-controlled), anxiety, asthma, h/o CVA, h/o melanoma, h/o basal cell carcinoma who presented due to feeling weak and having high BP readings at home. Found to be hyponatremic. Hyponatremia Sodium 124 on admission, down from 128 on 01/23, in Nov 2021 had been at 135 - likely from HCTZ Urine osmolality 189, urine sodium 51 Hx of hyponatremia Patient seemingly euvolemic on exam Patient is on losartanhydrochlorothiazide at home, which was held at time of admission Due to thiazide use, above urine tests may warrant repetition if hyponatremia does not resolve TSH NL (0.529) and a.m. cortisol slight elevation (29.09) - +Today sodium at 133 and 131 BMPs every 6 hours Hypertensive urgency Hypertensive urgency on arrival with BP of 210/107 BP improved to 160s over 80s with administration of hydralazine 10 mg IV x1 in ED, BP has now been 120s-130s/70s-80s Can consider additional hydralazine doses if blood pressure rises again BP now rising - will now restart losartan and add amlodipine 5mg. d/c hctz due to hyponatremia Continue metoprolol succinate - discussed salt restriction at home Chronic constipation Patient uses Linzess, docusate, MiraLAX, Senokot at home States she gets very constipated if not on this regimen Continue home regimen - Patient requesting low fiber diet, has history of bowel obstructions and prefers to eat low fiber Neuropathic pain in feet Gabapentin 100 mg at bedtime Asthma Fluticasone twice daily as needed, albuterol as needed Insomnia Trazodone 25 mg at bedtime DVT prophylaxis: Lovenox SQ Diet: Heart healthy, low fiber Dispo: Telemetry CODE STATUS: Full (2) HTN (hypertension): (3) Anxiety: (4) Chronic constipation: Admission and Anticipated Discharge Date Admission Date: January 25, 2022 Supervising Physician Co-Signing Physician Notes Resident Physician Supervision Note: I independently interviewed and examined the patient and verified the neri history and physical, reviewed labs and image studies and agree with resident findings and care plan. Subjective Patient was seen and examined at bedside. Denies any headache or changes in vision. States she did not sleep well last night, reports that she did not get her nightly trazodone until the middle of the night which may have been part of the issue. Denies shortness of breath, chest pain, fever, chills, body aches. Review of Systems Review of Systems: As per HPI Physical Exam Constitutional: WD/WN, vitals as above ENMT: external ear and nose normal, oropharynx normal Neck: trachea midline, no thyromegaly Respiratory: normal respiratory effort, lungs clear to auscultation Cardiovascular: RRR, no murmur, no edema Gastrointestinal (Abdomen): Nontender, soft. +bowel sounds Skin: no rashes, warm and dry Psychiatric: A+Ox3, euthymic affect Results & Data Results & Data ([facility]) Vital Signs (Past 12 Hours) Vital Signs Temp Pulse Pulse Resp BP BP Pulse Ox 01/26/22 03:57 36.3 C L 71 16 107/65 97 01/26/22 00:00 88 01/26/22 00:12 36.6 C 84 18 175/77 H 97 01/26/22 00:12 01/26/22 00:12 36.6 C 84 18 175/77 H 97 01/25/22 23:00 90 19 99 01/25/22 23:00 165/86 H 01/25/22 22:50 88 19 98 01/25/22 23:56 84 18 164/82 H 96 01/25/22 22:40 87 17 99 01/25/22 22:30 90 16 100 01/25/22 22:30 170/75 H 01/25/22 22:20 77 16 100 01/25/22 22:19 81 16 99 01/25/22 22:19 184/86 H 01/25/22 22:12 77 12 01/25/22 22:00 98 01/25/22 21:50 100 01/25/22 21:40 100 01/25/22 21:30 98 01/25/22 21:20 100 01/25/22 21:14 100 01/25/22 21:14 193/91 H 01/25/22 21:12 98 01/25/22 20:40 70 18 100 01/25/22 20:30 66 16 100 01/25/22 20:27 68 13 100 01/25/22 20:27 190/93 H 01/25/22 20:20 67 16 100 01/25/22 20:10 73 17 97 01/25/22 20:00 73 18 100 01/25/22 19:53 76 23 98 01/25/22 21:43 74 193/91 H 01/25/22 20:24 74 94 01/25/22 20:03 37.4 C 74 16 210/107 H 97 Pulse Ox O2 Del Method O2 Del Method 01/26/22 03:57 Room Air 01/26/22 00:00 01/26/22 00:12 Room Air 01/26/22 00:12 97 Room Air 01/26/22 00:12 Room Air 01/25/22 23:00 01/25/22 23:00 01/25/22 22:50 01/25/22 23:56 Room Air 01/25/22 22:40 01/25/22 22:30 01/25/22 22:30 01/25/22 22:20 01/25/22 22:19 01/25/22 22:19 01/25/22 22:12 01/25/22 22:00 01/25/22 21:50 01/25/22 21:40 01/25/22 21:30 01/25/22 21:20 01/25/22 21:14 01/25/22 21:14 01/25/22 21:12 01/25/22 20:40 01/25/22 20:30 01/25/22 20:27 01/25/22 20:27 01/25/22 20:20 01/25/22 20:10 01/25/22 20:00 01/25/22 19:53 01/25/22 21:43 01/25/22 20:24 Room Air 01/25/22 20:03 Room Air Resident Activity Tracking Resident Involvement: Resident Care Provided Care Provided: Adult Hospital Medicine
--- NOTE | 2022-01-26 07:30 | CT Scan Report ---
NECK CTA HISTORY: Weakness. Nausea. Neck discomfort. Hypertension. Stroke symptoms. TECHNIQUE: Multiaxial CT images of the neck were performed following the intravenous administration o f contrast to evaluate the major cervical vessels. Maximum intensity projection images were also obta ined. All measurements were calculated based on NASCET criteria. A dose lowering technique was utili zed adhering to the principles of ALARA. COMPARISON STUDY: Head CT 01/23/2022. FINDINGS: The aortic arch and proximal great vessels are widely patent. There is no significant sten osis, occlusion, or dissection identified within the bilateral common carotid, internal carotid, or v ertebral arteries. Small fluid level within the right maxillary sinus. IMPRESSION: No significant stenosis, occlusion, or dissection identified within the carotid or vertebral arteries . ACT 112: Negative or not required by law. Electronically signed by: Nilton Bermeo M.D. 01/26/2022 7:29 AM
[2022-01-26] MEDS: METOPROLOL SUCC 25MG EXT REL TAB PO SCH (07:34)
[2022-01-26] MEDS: LINACLOTIDE 145 MCG CAPSULE PO SCH (07:34)
[2022-01-26] MEDS: ENOXAPARIN INJ 40 MG/0.4 ML SYR SQ SCH (07:34)
[2022-01-26 08:50] LABS: BUN Creatinine Ratio 17.7 (10-20); Calcium 8.7 mg/dl (8.5-10.1); Creatinine Clr Calc Pharmacy 51.4 ml/min; Est GFR (African American) 96.6 ml/min; Est GFR (Non-African American) 83.4 ml/min; Potassium 3.8 mmol/L (3.5-5.1)
--- NOTE | 2022-01-26 09:22 | Electrocardiogram Report ---
Test Reason : Blood Pressure : / mmHG Vent. Rate : 073 BPM Atrial Rate : 073 BPM P-R Int : 152 ms QRS Dur : 084 ms QT Int : 382 ms P-R-T Axes : 050 004 052 degrees QTc Int : 420 ms Normal sinus rhythm Normal ECG When compared with ECG of 23-JAN-2022 23:27, No significant change was found Confirmed by Sly Davidson ([id number]) on 01/26/2022 9:21:53 AM Referred By: REFERRED SELF Confirmed By:Sly Davidson
[2022-01-26] MEDS ORDERED: DOCUSATE SODIUM 100 MG CAP PO ONE (10:09)
[2022-01-26] MEDS: SENNA 8.6 MG TAB PO SCH (11:21)
[2022-01-26 12:15] LABS: BUN Creatinine Ratio 16.1 (10-20); Calcium 9.5 mg/dl (8.5-10.1); Creatinine Clr Calc Pharmacy 51.4 ml/min; Est GFR (African American) 96.6 ml/min; Est GFR (Non-African American) 83.4 ml/min; Potassium 3.9 mmol/L (3.5-5.1)
[2022-01-26] MEDS ORDERED: LOSARTAN POTASSIUM 50 MG TAB PO SCH (16:30)
[2022-01-26] MEDS ORDERED: amLODIPine BESYLATE 5 MG TAB PO ONE (16:30)
[2022-01-26] MEDS: traZODone HCL 50 MG TAB PO SCH (21:06)
[2022-01-26] MEDS: DOCUSATE SODIUM 100 MG CAP PO SCH (21:08)
[2022-01-26] MEDS: GABAPENTIN 100 MG CAP PO SCH (21:09)
--- NOTE | 2022-01-27 00:43 | Billing Data ---
Date of Service January 25, 2022 Coding Level of Care Code 44012 Initial Inpt Care Lvl 3
[2022-01-27 06:24] LABS: Hematocrit (blood only) 34.1 % (34.1-44.9); Hemoglobin 12.1 g/dl (12.0-16.0); Mean Corpuscular Hemoglobin 31.8 pg (25.0-34.0); Mean Corpuscular Hgb Conc 35.5 g/dL (32.0-36.0); Mean Corpuscular Volume 89.7 fL (80.0-100.0); Mean Platelet Volume 8.3 fL (9.4-12.3); Platelet Count 328 K/uL (130-400); RDW Coefficient of Variation 12.5 % (11.5-14.5); RDW Standard Deviation 41.1 fL (36.4-46.3); White Blood Count 4.56 K/ul (4.8-10.8)
[2022-01-27 06:53] LABS: BUN Creatinine Ratio 16.7 (10-20); Est GFR (African American) 94.7 ml/min; Est GFR (Non-African American) 81.7 ml/min
[2022-01-27] MEDS: POLYETHYLENE (MIRALAX) 17 GM PACK PO PRN ×2 (08:50→20:50)
[2022-01-27] MEDS: ENOXAPARIN INJ 40 MG/0.4 ML SYR SQ SCH (08:51)
[2022-01-27] MEDS: LOSARTAN POTASSIUM 50 MG TAB PO SCH ×2 (08:51→20:49)
[2022-01-27] MEDS: LINACLOTIDE 145 MCG CAPSULE PO SCH (08:51)
[2022-01-27] MEDS: METOPROLOL SUCC 25MG EXT REL TAB PO SCH (08:51)
[2022-01-27] MEDS: SENNA 8.6 MG TAB PO SCH (09:26)
--- NOTE | 2022-01-27 10:36 | Hospitalist Progress Note ---
Date of Service January 27, 2022 Assessment & Plan (1) Hyponatremia: (2) HTN (hypertension): (3) Anxiety: Plan Britta Green is an 81-year-old female with PMH of HTN, HLD, Diabetes (not on medication, diet-controlled), anxiety, asthma, h/o CVA, h/o melanoma, h/o basal cell carcinoma who presented due to feeling weak and having high BP readings at home. Found to be hyponatremic. Hyponatremia Sodium 124 on admission, down from 128 on 01/23, in Nov 2021 had been at 135 - likely from HCTZ Urine osmolality 189, urine sodium 51 Hx of hyponatremia Patient seemingly euvolemic on exam Patient is on losartanhydrochlorothiazide at home, which was held at time of admission TSH NL (0.529) and a.m. cortisol slight elevation (29.09) - +Today sodium at 132 BMP repeat tomorrow AM Hypertensive urgency Hypertensive urgency on arrival with BP of 210/107 BP improved to 160s over 80s with administration of hydralazine 10 mg IV x1 in ED, BP has now been 120s-130s/70s-80s BP elevated overnight - restarted losartan BID and started hydralazine TID, d/c hctz due to hyponatremia - Received 1 dose of amlodipine yesterday, d/c'ed as prior providers had concern it was decreasing gastric motility Continue metoprolol succinate - discussed salt restriction at home Chronic constipation Patient uses Linzess, docusate, MiraLAX, Senokot at home States she gets very constipated if not on this regimen Continue home regimen - Patient requesting low fiber diet, has history of bowel obstructions and prefers to eat low fiber Neuropathic pain in feet Gabapentin 100 mg at bedtime Asthma Fluticasone twice daily as needed, albuterol as needed Insomnia Trazodone 25 mg at bedtime DVT prophylaxis: Lovenox SQ Diet: Heart healthy, low fiber Dispo: Telemetry CODE STATUS: Full Admission and Anticipated Discharge Date Admission Date: January 25, 2022 Supervising Physician Co-Signing Physician Notes Resident Physician Supervision Note: I independently interviewed and examined the patient and verified the neri history and physical, reviewed labs and image studies and agree with resident findings and care plan. Subjective Patient seen and examined at bedside. No events overnight. Was able to sleep a bit better last night, did have some lower back pain which she attributes to the uncomfortable bed. Patient expresses concern about going home as BP was again elevated overnight. Denies headache, vision changes, fever, body aches, chills. Review of Systems Review of Systems: As per HPI Physical Exam Constitutional: WD/WN, vitals as above ENMT: external ear and nose normal, oropharynx normal Neck: trachea midline, no thyromegaly Respiratory: normal respiratory effort, lungs clear to auscultation Cardiovascular: RRR, no murmur, no edema Gastrointestinal (Abdomen): normal bowel sounds, soft, nontender, no hepatosplenomegaly Psychiatric: A+Ox3, euthymic affect Results & Data Results & Data ([facility]) Vital Signs (Past 12 Hours) Vital Signs Temp Pulse Pulse Resp BP BP Pulse Ox 01/27/22 07:10 36.5 C 70 18 137/69 98 01/27/22 03:00 36.6 C 72 14 151/74 H 100 01/27/22 03:30 85 O2 Del Method 01/27/22 07:10 Room Air 01/27/22 03:00 Room Air 01/27/22 03:30 Resident Activity Tracking Resident Involvement: Resident Care Provided Care Provided: Adult Hospital Medicine
[2022-01-27] MEDS: hydrALAZINE 10 MG TAB PO SCH ×2 (13:18→20:46)
[2022-01-27] MEDS: traZODone HCL 50 MG TAB PO SCH (20:45)
[2022-01-27] MEDS: GABAPENTIN 100 MG CAP PO SCH (20:45)
[2022-01-27] MEDS: DOCUSATE SODIUM 100 MG CAP PO SCH (20:48)
[2022-01-27] MEDS: ACETAMINOPHEN 325 MG TAB PO PRN (20:50)
[2022-01-28] MEDS: ENOXAPARIN INJ 40 MG/0.4 ML SYR SQ SCH (08:17)
[2022-01-28] MEDS: POLYETHYLENE (MIRALAX) 17 GM PACK PO PRN ×2 (08:17→20:43)
[2022-01-28] MEDS: SENNA 8.6 MG TAB PO SCH (08:18)
[2022-01-28] MEDS: METOPROLOL SUCC 25MG EXT REL TAB PO SCH (08:18)
[2022-01-28] MEDS: LINACLOTIDE 145 MCG CAPSULE PO SCH (08:18)
[2022-01-28] MEDS: hydrALAZINE 10 MG TAB PO SCH (08:18)
[2022-01-28] MEDS: LOSARTAN POTASSIUM 50 MG TAB PO SCH ×2 (08:18→20:41)
[2022-01-28 08:45] LABS: Hematocrit (blood only) 35.8 % (34.1-44.9); Hemoglobin 12.5 g/dl (12.0-16.0); Mean Corpuscular Hemoglobin 31.6 pg (25.0-34.0); Mean Corpuscular Hgb Conc 34.9 g/dL (32.0-36.0); Mean Corpuscular Volume 90.6 fL (80.0-100.0); Mean Platelet Volume 8.6 fL (9.4-12.3); Platelet Count 347 K/uL (130-400); RDW Coefficient of Variation 12.5 % (11.5-14.5); RDW Standard Deviation 41.6 fL (36.4-46.3); Red Blood Count 3.95 M/uL (3.93-5.22); White Blood Count 4.63 K/ul (4.8-10.8)
[2022-01-28 09:28] LABS: BUN Creatinine Ratio 18.6 (10-20); Calcium 9.8 mg/dl (8.5-10.1); Creatinine Clr Calc Pharmacy 45.7 ml/min; Est GFR (African American) 92.9 ml/min; Est GFR (Non-African American) 80.1 ml/min
[2022-01-28] MEDS ORDERED: ALPRAZolam 0.25 MG TABLET PO ONE (09:48)
--- NOTE | 2022-01-28 09:54 | Hospitalist Progress Note ---
Date of Service January 28, 2022 Assessment & Plan (1) Hyponatremia: (2) HTN (hypertension): (3) Anxiety: Plan Britta Green is an 81-year-old female with PMH of HTN, HLD, Diabetes (not on medication, diet-controlled), anxiety, asthma, h/o CVA, h/o melanoma, h/o basal cell carcinoma who presented due to feeling weak and having high BP readings at home. Found to be hyponatremic. Hypertensive urgency Hx of hemorrhagic stroke Hypertensive urgency on arrival with BP of 210/107 BP improved to 160s over 80s with administration of hydralazine 10 mg IV x1 in ED, BP has now been 120s-130s/70s-80s BP elevated overnight, less than before but reaches 160s-170s systolic - d/c hctz due to hyponatremia - Received 1 dose of amlodipine earlier in stay, d/c'ed as prior providers had concern it was decreasing gastric motility -Continue Losartan BID, increased Hydralazine TID to 25mg with PRN dose for systolic >160 Continue metoprolol succinate - discussed salt restriction at home - feel that anxiety may be worsening BP, gave 0.25mg Xanax today for increased anxiety Hyponatremia Sodium 124 on admission, down from 128 on 01/23, in Nov 2021 had been at 135 - likely from HCTZ Urine osmolality 189, urine sodium 51 Hx of hyponatremia Patient seemingly euvolemic on exam Patient is on losartanhydrochlorothiazide at home, -hctz d/michelle on admission TSH NL (0.529) and a.m. cortisol slight elevation (29.09) - +Today sodium at 131 BMP repeat tomorrow AM Chronic constipation with h/o multiple SBO Patient uses Linzess, docusate, MiraLAX, Senokot at home States she gets very constipated if not on this regimen Continue home regimen - Patient requesting low fiber diet, has history of bowel obstructions and prefers to eat low fiber Neuropathic pain in feet Gabapentin 100 mg at bedtime Asthma Fluticasone twice daily as needed, albuterol as needed Insomnia Trazodone 25 mg at bedtime DVT prophylaxis: Lovenox SQ Diet: Heart healthy, low fiber Dispo: Telemetry CODE STATUS: Full Admission and Anticipated Discharge Date Admission Date: January 25, 2022 Supervising Physician Co-Signing Physician Notes Resident Physician Supervision Note: I independently interviewed and examined the patient and verified the neri history and physical, reviewed labs and image studies and agree with resident findings and care plan. Subjective Patient seen and examined at bedside. Patient is frustrated and discouraged that her blood pressure continues to be uncontrolled. She is concerned that her BP will spike again when she returns home. Had neck pain last night which improved with some Tylenol. Notes that she has some itchiness on her arms, is unsure if it is related to started the hydralazine or because she hasn't been able to take a shower. Inquires about a medication for the increased anxiety. Denies headache, dizziness, chest pain, changes in vision. Review of Systems Review of Systems: As per HPI Physical Exam Constitutional: WD/WN, vitals as above ENMT: external ear and nose normal, oropharynx normal Neck: trachea midline, no thyromegaly Respiratory: normal respiratory effort, lungs clear to auscultation Cardiovascular: RRR, no murmur, no edema Gastrointestinal (Abdomen): normal bowel sounds, soft, nontender, no hepatosplenomegaly Psychiatric: A+Ox3, euthymic affect Results & Data Results & Data ([facility]) Vital Signs (Past 12 Hours) Vital Signs Temp Pulse Pulse Pulse Resp BP BP 01/28/22 07:22 36.7 C 62 18 149/74 H 01/28/22 03:00 36.6 C 72 18 162/79 H 01/27/22 23:45 83 01/27/22 22:14 36.5 C 78 18 162/77 H Pulse Ox O2 Del Method 01/28/22 07:22 97 Room Air 01/28/22 03:00 99 Room Air 01/27/22 23:45 01/27/22 22:14 100 Room Air Resident Activity Tracking Resident Involvement: Resident Care Provided Care Provided: Adult Hospital Medicine
[2022-01-28] MEDS ORDERED: hydrALAZINE HCL 25 MG TAB PO PRN (11:54)
[2022-01-28] MEDS: hydrALAZINE HCL 25 MG TAB PO SCH ×2 (13:40→20:42)
[2022-01-28] MEDS: ACETAMINOPHEN 325 MG TAB PO PRN (20:35)
[2022-01-28] MEDS: DOCUSATE SODIUM 100 MG CAP PO SCH (20:42)
[2022-01-28] MEDS ORDERED: ALPRAZolam 0.25 MG TABLET PO STA (20:51)
[2022-01-28] MEDS ORDERED: SENNA 8.6 MG TAB PO SCH (21:00)
[2022-01-28] MEDS: GABAPENTIN 100 MG CAP PO SCH (21:06)
[2022-01-28] MEDS: traZODone HCL 50 MG TAB PO SCH (21:07)
[2022-01-29] MEDS: LINACLOTIDE 145 MCG CAPSULE PO SCH (06:44)
--- NOTE | 2022-01-29 06:55 | Hospitalist Progress Note ---
Date of Service January 29, 2022 Assessment & Plan (1) Hyponatremia: (2) HTN (hypertension): (3) Anxiety: Plan Britta Green is an 81-year-old female with PMH of HTN, HLD, Diabetes (not on medication, diet-controlled), anxiety, asthma, h/o CVA, h/o melanoma, h/o basal cell carcinoma who presented due to feeling weak and having high BP readings at home. Found to be hyponatremic. Hypertensive urgency Hx of hemorrhagic stroke Hypertensive urgency on arrival with BP of 210/107 BP improved to 160s over 80s with administration of hydralazine 10 mg IV x1 in ED, BP has now been 120s-130s/70s-80s BP elevated overnight, less than before but reaches 160s-170s systolic - d/c hctz due to hyponatremia - Received 1 dose of amlodipine earlier in stay, d/c'ed as prior providers had concern it was decreasing gastric motility -Continue Losartan BID, increased Hydralazine TID to 25mg with PRN dose for systolic >160 Continue metoprolol succinate - discussed salt restriction at home - feel that anxiety may be worsening BP, gave 0.25mg Xanax today for increased anxiety Hyponatremia Sodium 124 on admission, down from 128 on 01/23, in Nov 2021 had been at 135 - likely from HCTZ Urine osmolality 189, urine sodium 51 Hx of hyponatremia Patient seemingly euvolemic on exam Patient is on losartanhydrochlorothiazide at home, -hctz d/michelle on admission TSH NL (0.529) and a.m. cortisol slight elevation (29.09) - +Today sodium at 131 BMP repeat tomorrow AM Chronic constipation with h/o multiple SBO Patient uses Linzess, docusate, MiraLAX, Senokot at home States she gets very constipated if not on this regimen Continue home regimen - Patient requesting low fiber diet, has history of bowel obstructions and prefers to eat low fiber Neuropathic pain in feet Gabapentin 100 mg at bedtime Asthma Fluticasone twice daily as needed, albuterol as needed Insomnia Trazodone 25 mg at bedtime DVT prophylaxis: Lovenox SQ Diet: Heart healthy, low fiber Dispo: Telemetry CODE STATUS: Full Admission and Anticipated Discharge Date Admission Date: January 25, 2022 Review of Systems Review of Systems: As per HPI Physical Exam Constitutional: WD/WN, vitals as above ENMT: external ear and nose normal, oropharynx normal Neck: trachea midline, no thyromegaly Respiratory: normal respiratory effort, lungs clear to auscultation Cardiovascular: RRR, no murmur, no edema Gastrointestinal (Abdomen): normal bowel sounds, soft, nontender, no hepatosplenomegaly Psychiatric: A+Ox3, euthymic affect Results & Data Results & Data ([facility]) Vital Signs (Past 12 Hours) Vital Signs Temp Pulse Pulse Pulse Resp BP BP 01/29/22 03:00 36.5 C 65 14 128/71 01/28/22 23:39 82 01/28/22 22:08 36.6 C 76 18 179/91 H 01/28/22 19:09 36.6 C 74 18 164/83 H Pulse Ox O2 Del Method 01/29/22 03:00 99 Room Air 01/28/22 23:39 01/28/22 22:08 98 Room Air 01/28/22 19:09 98 Room Air Resident Activity Tracking Resident Involvement: Resident Care Provided Care Provided: Adult Hospital Medicine
[2022-01-29 08:28] LABS: Calcium 8.8 mg/dl (8.5-10.1); Creatinine Clr Calc Pharmacy 55.5 ml/min; Est GFR (African American) 98.2 ml/min; Est GFR (Non-African American) 84.8 ml/min; Potassium 3.7 mmol/L (3.5-5.1)
[2022-01-29] MEDS: ENOXAPARIN INJ 40 MG/0.4 ML SYR SQ SCH (08:33)
[2022-01-29] MEDS: hydrALAZINE HCL 25 MG TAB PO SCH ×2 (08:34→13:43)
[2022-01-29] MEDS: LOSARTAN POTASSIUM 50 MG TAB PO SCH (08:35)
[2022-01-29] MEDS: METOPROLOL SUCC 25MG EXT REL TAB PO SCH (08:35)
[2022-01-29] MEDS: SENNA 8.6 MG TAB PO SCH (08:35)
[2022-01-29] MEDS: ACETAMINOPHEN 325 MG TAB PO PRN (11:43)
--- NOTE | 2022-01-29 13:06 | Discharge Summary ---
Date of Service January 29, 2022 Admission HPI Per Admitting Provider Britta Green is an 81-year-old female with PMH of HTN, HLD, Diabetes (not on medication, diet-controlled), anxiety, asthma, h/o CVA, h/o melanoma, h/o basal cell carcinoma who presented due to feeling weak and having high BP readings at home. She states that she has been feeling weak and rundown for the past few days. She did come into the ED on 01/23 for similar complaints. At that visit blood pressure was also initially elevated to 200s systolic but decreased to 150 systolic after a few hours in ED. She was sent home at that time with plans to follow-up with PCP. However, today she was feeling weaker and developed a dull headache. At that time she checked her blood pressure and found it to be elevated again. Upon arrival in the ED, patient had a blood pressure up to 210/107. Additionally, lab work was significant for a sodium level of 124, down from 128 on 01/23. Prior blood work in November 2021 showed normal sodium. Of note, patient did state that she had low sodium during the hospitalization at [facility] in the past and remembers receiving salt tabs at that time. I attempted to access [facility] chart but was unable to at this time. In the ED, patient received NSS 1 L bolus and hydralazine 10 mg IV x1. Her blood pressure steadily improved to 160s over 80s. Her headache did improve with blood pressure improvement. CTA head/neck was negative for any acute cerebral or vascular pathology, did show signs of acute sinusitis. However, patient denies congestion, cough, fever, chills or any other URI symptoms. Also denies chest pain, palpitation, shortness of breath, abdominal pain, diarrhea, rash. Admission Exam Per Admitting Provider GENERAL: A&Ox3. NAD. HEENT: PERRL, EOMI. Moist mucous membranes. NECK: No JVD. No lymphadenopathy. CHEST/LUNGS: CTAB A/P. No crackles, wheezes, rales, rhonchi. HEART: RRR. No m/g/r. No carotid bruits. ABDOMEN: NT/ND, soft. BS+ x4 EXTREMITIES: No cyanosis, no clubbing, no edema. Strength 5/5 in all 4 extremities. SKIN: Warm and dry. No rashes or lesions. PSYCHIATRIC: Euthymic affect, no SI, no pressured speech, no hallucinations NEUROLOGIC: No FND Principal Diagnosis HTN, hyponatremia Discharge Exam Constitutional WD/WN, vitals as above ENMT external ear and nose normal, oropharynx normal Neck trachea midline, no thyromegaly Respiratory normal respiratory effort, lungs clear to auscultation Cardiovascular RRR, no murmur, no edema Gastrointestinal (Abdomen) normal bowel sounds, soft, nontender, no hepatosplenomegaly Skin no rashes, warm and dry Psychiatric A+Ox3, euthymic affect Discharge Data Allergies Allergy/AdvReac Type Severity Reaction Status Date / Time adhesive Allergy Intermediate rash, Verified 01/25/22 20:31 redness,ITCHY bacitracin [From Polysporin] Allergy Intermediate ITCHY RASH Verified 01/25/22 20:31 polymyxin B [From Polysporin] Allergy Intermediate ITCHY RASH Verified 01/25/22 20:31 latex Allergy Mild skin Verified 01/25/22 20:31 redness codeine AdvReac Intermediate NAUSEA AND Verified 01/25/22 20:31 VOMITING lisinopril AdvReac Intermediate cough Verified 01/25/22 20:31 meperidine [From Demerol] AdvReac Intermediate NAUSEA AND Verified 01/25/22 20:31 VOMITING morphine AdvReac Intermediate NAUSEA Verified 01/25/22 20:31 VOMITING oxycodone [From Percocet] AdvReac Intermediate NAUSEA-PT Verified 01/25/22 20:31 UNSURE Consultations 01/25/22 21:40 ED Decision to Admit Stat Ordered Studies 01/25/22 20:01 CT angio head wo/w Urgent CT angio neck with con Urgent Hospital Course (1) Hyponatremia: (2) HTN (hypertension): (3) Anxiety: Mello Calleajs is a 81 y/o female with PMH of HTN, HLD, Diabetes (not on medication, diet-controlled), anxiety, asthma, h/o CVA, h/o melanoma, h/o basal cell carcinoma who presented due to feeling weak and having high BP readings at home. She was found to have a BP on 210/107 in the ER and admitted, also had sodium of 124. Had Head and Neck CTA without acute findings. Was treated with hydralazine in ER, helped bring down BP some. Suspect that HCTZ contributed to hyponatremia, so med was d/c and patient started on Losartan BID and hydralazine TID for BP. Unable to tolerate calcium channel debra due decreased GI motility with hx of rectal prolapse and SBO and cough from pablo inhibitors. Discussed that hydralazine not ideal due to short half life and risk of orthostatic hypotension. Switched metoprolol to long acting propranolol, could consider increasing dosage of propranolol- hope to also address anxiety to some degree with this. Could consider clonipine as option in future. Patient received 2 doses of xanax during stay due to significant anxiety. Emphasized the importance of not fixating on the BP value as it will create vicious cycle of further worsening BP. Discussed focusing on symptoms of severe headache/visual changes, etc. as indication that BP is more dangerously elevated. Patient has f/u with GI regarding rectal prolapse tomorrow. Encouraged patient to have f/u with PCP within in 1 week for monitoring BP medication changes and recheck BMP for sodium value. Total Time Total Time Spent Total Time Spent (In Minutes): . >30 Discharge Plan Discharge Items Patient Disposition: Home - Self-Care Reason For Visit: HTN, HYPONATREMIA Discharge Diagnosis: Hypertension, Hyponatremia Activity: Per Instructions section Non-emergency contact: Primary Care Provider and Weather Forcaster Call non-emergency contact if: you have any medication questions and your symptoms worsen Follow-up/Referrals: Kailey Green MD [Primary Care Provider] - 02/01/22 3:20 pm (Dr. Lori Pineda [facility] Office) Diet: Regular Addtl Attending Provider Instructions: Britta, you were admitted to the hospital for elevated blood pressure. You were also found to have a low sodium value that was likely due to the diuretic (HCTZ) part of your blood pressure medication. Your blood pressure was managed by hydralazine in the ER and after your admission, the Losartan was started as well as scheduled hydralazine three times daily. These medications seemed to control your blood pressure throughout the day with some occasional increases in BP in the evenings. We discussed that even given your history of hemorrhagic stroke, it is normal and acceptable to have some variation in your BP. As we reviewed, it is less important to focus on the exact reading of the BP and more important to be aware of how you are feeling. For example, if you check your BP and the systolic BP is 170+, if you are feeling well otherwise (no severe headache, "whooshing" feeling, visual changes, etc.) you should try to do something relaxing like reading a book to keep your mind off of it and then recheck the BP in several hours. As we discussed, we do not want the fixation and anxiety relating to the BP increasing to become a vicious cycle and the refore increasing the BP even more. With your hydralazine medication, if the BP is still elevated and you are anxious about it, you could take an additional dose while being mindful that it could lead to some dizziness when moving from sitting to standing. We also discussed that the anxiety can be addressed in some non medication interventions like taking time to pray/handing over your concerns to God while you sleep as well as writing down a list of your worries to put your mind at ease until the morning. You were given a medication called xanax twice during the stay to help with immediate relaxation, which can be helpful but also causes some difficulty ocean transportation intermediary if taken routinely. This is something you can discuss further with your PCP Dr. Green. For now, the new medication you are being starting on Propranolol may help some with the anxiety in addition to the BP. We are also hopeful that with more guidance on your GI conditions at your appointment tomorrow, that will also help decrease your anxiety. Changes to Medications * You will STOP taking Losartan-HCTZ and now will START taking Losartan twice per day. * You will STOP taking Metoprolol and now will START taking Propranolol once in the morning. * You will now START taking Hydralazine three times per day. +These 3 prescriptions were sent to your pharmacy +All other home medications will continue per usual * I have sent a message to Dr. Green' office to inform her that you were discharged from the hospital today and will need to be seen for a hospital discharge follow up and possibly recheck your sodium level within 1 week. They will reach out to you to schedule this appointment. * Dr. Choe also performed some OMT (osteopathic manipulative treatment) to your neck, this is something that could be continued with dedicated OMT appointments by a D.O. provider from Dr. Green' office. Pending Studies at Discharge: No Stand-Alone Forms: My [facility], Smoking Cessation Medications and DC Order Prescriptions: New hydralazine 25 mg Tablet 25 mg PO TID 30 Days Qty: 90 0RF losartan 50 mg Tablet 50 mg PO BID 30 Days Qty: 60 0RF Inderal XL 80 mg capsule,extended release 24hr 80 mg PO DAILY 30 Days Qty: 30 0RF Continued trazodone 50 mg tablet 25 mg PO HS Qty: 30 5RF Hold Instructions: not taking albuterol sulfate [ProAir HFA] 90 mcg/actuation HFA aerosol inhaler 2 puff INH Q6H PRN (Reason: shortness of breath or wheezing) Qty: 8 3RF (DME) OneTouch Ultra Test Strip See Rx Instructions .Route Qty: 100 5RF Rx Instructions: Test blood sugar once daily Dx:E11.9 (DME) blood-glucose meter [place]OneTouch Verio Meter[place] [facility] .Route Qty: 1 0RF Rx Instructions: Test blood sugar once daily DX: E11.9 (DME) lancets [OneTouch UltraSoft Lancets[place] [facility]ructions .Route Qty: 100 5RF Rx Instructions: Test 1 x daily. Dx:E11.9 [id number] [Fioricet] 50-300-40 mg capsule 1 cap PO Q4H PRN (Reason: Headache) Flovent HFA 110 mcg/actuation HFA aerosol inhaler 1 puff inhalation BID PRN (Reason: Wheezing) Linzess 145 mcg capsule 145 mcg PO QAM Qty: 90 3RF docusate sodium [Stool Softener] 100 mg Capsule 100 mg PO QPM gabapentin 100 mg capsule 100 mg PO HS polyethylene glycol 3350 [Miralax] 17 gram/dose Powder 17 g PO TID PRN (Reason: Constipation) Qty: 0 0RF Enema Disposable 19-7 gram/118 mL Enema 132 ml AR DAILY PRN (Reason: constipation) Qty: 15 0RF Rx Instructions: Use if you have not had a bowel movement in 24 hours. sennosides [Senokot] 8.6 mg tablet See Rx Instructions .ROUTE .COMPLEX Rx Instructions: 8.6 mg orally; TAKES 8.6 MG QAM, THEN 17.2 MG AT HS. camphor-menthol 0.2-3.5 % Gel 1 applic TOPICAL BID PRN (Reason: Pain) Rx Instructions: rub in gently and completely Discontinued metoprolol succinate 25 mg tablet extended release 24 hr 25 mg PO QAM losartan-hydrochlorothiazide 50-12.5 mg tablet 1 tab PO BID Rx Instructions: PER PT "TOOK BOTH DOSES TODAY". 01/25/22. Discharge Orders: Discharge Order (Routine); Ordered 01/29/22 Ordered By: Irish Parikh Admission Data Admit Date/Time: 01/25/22 22:29 Attending Provider: Moses Choe Admit Provider: Kevin Rodriguez Primary Care Provider: Kailey Green Other Providers: Mildred Miller Other Interventions: Discharge Summary Assessment (RN) Last Done: 01/29/22 13:50 Supervising Physician Co-Signing Physician Notes I personally examined the patient and verified all neri points of history and exam, discussed case, and agree with decision making with Dr Parikh. Feeling okay. Anxious about her blood pressure, anxious about if her belly hurts again, very much would like to make it to her Sandra appointments tomorrow. No acute complaints. Vitals noted, in general she is awake and alert pleasant no distress. HEENT normocephalic atraumatic mucous membranes moist. Breathing unlabored no accessory muscle use good effort. Neuro shows cranial nerves II through XII be grossly intact gross motor and sensory are intact. Skin without rashes, pallor, icterus. Hyponatremia, uncontrolled hypertensionsafe/stable for home. Outpatient follow-up of sodium. Blood pressure regimen as above for now, anticipate trying to titrate beta-debra, and/or substitute clonidine patch for hydralazine over time for less risk of orthostasis, overall better control, and possible side benefit of anxiety calming effects. Similarly, for a bit better antihypertensive effect and potential side benefit of coming anxiety somemetoprolol changed to propranolol. Close outpatient follow-up. Otherwise as above. Basic metabolic panel in a few days. >30mins
--- NOTE | 2022-01-29 20:12 | Billing Data ---
Date of Service January 29, 2022 Coding Level of Care Code D/C DAY MANAGEMENT >30 MINS
== END 2022-01-29 14:30 | disposition home or self-care (01) | DRG 641 ==
LOC: ED 19:47 → SUATTDRO 22:29 → 2S 22:29

== ENCOUNTER 2022-03-13 12:23 | Observation (INO) ==
[2022-03-13 14:01] LABS: Basophils # (auto) 0.03 K/uL (0-0.2); Basophils % (auto) 0.9 %; Eosinophils # (auto) 0.03 K/uL (0-0.50); Eosinophils % (auto) 0.9 %; Hematocrit (blood only) 34.3 % (37.0-47.0); Hemoglobin 12.3 g/dl (12.0-16.0); Immature Granulocytes # (auto) 0.01 K/uL (0.01-0.20); Immature Granulocytes % (auto) 0.3 %; Lymphocytes # (auto) 0.86 K/uL (1.2-3.4); Lymphocytes % (auto) 26.2 %; Mean Corpuscular Hemoglobin 32.1 pg (25.0-34.0); Mean Corpuscular Hgb Conc 35.9 g/dL (32.0-36.0); Mean Corpuscular Volume 89.6 fL (80.0-100.0); Mean Platelet Volume 8.4 fL (9.4-12.4); Monocytes # (auto) 0.39 K/uL (0.11-0.59); Monocytes % (auto) 11.9 %; Neutrophils # (auto) 1.96 K/uL (1.40-6.50); Neutrophils % (auto) 59.8 %; Platelet Count 355 K/uL (130-400); RDW Coefficient of Variation 13.1 % (11.5-14.5); RDW Standard Deviation 42.9 fL (36.4-46.3); Red Blood Count 3.83 M/uL (4.20-5.40); White Blood Count 3.28 K/ul (4.8-10.8)
[2022-03-13 14:10] LABS: Albumin Globulin Ratio 1.6 (0.9-2); Albumin Level 4.3 gm/dl (3.4-5.0); BUN Creatinine Ratio 16.4 (10-20); Bilirubin,Total 0.6 mg/dl (0.2-1.0); Calcium 9.3 mg/dl (8.5-10.1); Creatinine Clr Calc Pharmacy 58.7 ml/min; Est GFR (African American) 100.5 ml/min; Est GFR (Non-African American) 86.7 ml/min; Globulin 2.7 gm/dl (2.5-4.0); Potassium 4.2 mmol/L (3.5-5.1)
[2022-03-13] MEDS ORDERED: SODIUM CHLORIDE 0.9% 500 ML IV SCH (15:15)
--- NOTE | 2022-03-13 16:11 | Electrocardiogram Report ---
Test Reason : Blood Pressure : / mmHG Vent. Rate : 074 BPM Atrial Rate : 074 BPM P-R Int : 146 ms QRS Dur : 088 ms QT Int : 396 ms P-R-T Axes : 046 011 046 degrees QTc Int : 439 ms Normal sinus rhythm Possible Left atrial enlargement Poor R wave progression, consider anterior IN vs. lead placement vs. LVH Abnormal ECG When compared with ECG of 25-JAN-2022 19:56, No significant change was found Confirmed by Jhony Donnelly ([id number]) on 03/13/2022 4:11:03 PM Referred By: Kailey Green Confirmed By:Jhony Donnelly
--- NOTE | 2022-03-13 16:12 | History & Physical Report ---
Date of Service March 13, 2022 Assessment & Plan (1) Hyponatremia: Plan: Britta Green is an 81-year-old female with history of prior hyponatremia thought to be secondary to HCTZ (d/c'd in 01/2022), HTN, HLD, Diabetes (not on medication, diet-controlled), anxiety, asthma, h/o CVA, h/o melanoma, h/o basal cell carcinoma who presented to the ED at the recommendation of her PCP for hyponatremia; she reports feeling weak, but otherwise without symptoms. Subacute Hypotonic Hyponatremia Patient reporting several weeks worth of increasing weakness and poor p.o. 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 She has h/o CVA and is on SSRI. Her persistent leukopenia is also noted, though unclear whether or not an underlying hematologic process is driving this. s/p 500cc of NSS in the ED; hold on further IVF for right now NaCl 1000mg t.i.d. + Fluid restriction <2L/day Recheck BMP q4h Hold escitalopram Strict I&Os, daily weights Pending response, may wish to consider AM aldosterone level to further characterize if renal losses may also be contributory (2) HTN (hypertension): Plan: HTN Status post discontinuation of HCTZ in January 2022 Continue valsartan, hydralazine, metoprolol (3) Diabetes mellitus: Plan: T2DM Last 1 A1c at 6.5% in 05/2021 Initiate SSI w/ ACHS checks, add basal and tighten control as needed Recheck A1c in a.m. (4) Chronic constipation: Plan: Chronic Constipation with History of Numerous Small Bowel Obstructions Continue home Linzess, docusate, MiraLAX, Senokot Low fiber diet as requested (5) Leukopenia: Plan: Leukopenia with Lymphopenia Review of previous labs demonstrates persistent mild leukopenia since January 2022 Differential revealing relative lymphopenia 0.8 on admission Add peripheral smear to a.m. labs (in setting of recurrent hyponatremia work- up) Monitor CBCd Plan Chronic Problems Peripheral neuropathy: Continue gabapentin Asthma: Stable. No acute needs. Continue fluticasone, albuterol Insomnia: Continue trazodone Code: Full Dispo: MST Diet: Heart healthy, low fiber PPx: Lovenox History of Present Illness Primary Care Provider: Kailey Green MD Britta Green is an 81-year-old female with PMH of HTN, HLD, Diabetes (not on medication, diet-controlled), anxiety, asthma, h/o CVA, h/o melanoma, h/o basal cell carcinoma who presented due to feeling weak. She states that over the past month or so she has been feeling progressively more weak. She feels like she does not have energy that she used to do activities she wants. She takes care of her , and this has been more difficult. She says that her appetite has actually been quite poor, but really tries to do low fiber type stuff like yogurts, putting, occasional toast, banana; she also endorses soups and potat oes. Not usually much meat. 3-4x 12oz glasses of water a day on average. She denies any significant worsening peripheral edema. Denies progressive enlargement in her belly. Denies PND orthopnea. Denies dyspnea on exertion. She has been taking her medications as prescribed. She denies any regular alcohol use. Of note, patient was recently hospitalized in January 2022 for hypertensive urgency and hyponatremia (124 on admission), but had previously been normonatremic at 135 in November 2021; thought at the time was that it was likely secondary to hydrochlorothiazide, which was subsequently discontinued. Her sodium improved to 131 prior to discharge. She has been off hydrochlorothiazide since that time. In the ED, patient was found to have an admission weight of 55.2 kg (from 56.9 on 01/29) with heart rate 75, blood pressure 171/83. Labs revealed leukopenia 3.2 (also seen on January 2022 labs) with lymphopenia. Sodium 125, chloride 92, BUN 9/creatinine 0.55. Blood sugar 126. Added serum osmolality, urine sodium/creatinine/osmolalitypending at time of admission. She was given 500 cc of sodium chloride. Allergies Allergy/AdvReac Type Severity Reaction Status Date / Time adhesive Allergy Intermediate rash, Verified 03/13/22 16:46 redness,ITCHY bacitracin [From Polysporin] Allergy Intermediate ITCHY RASH Verified 03/13/22 16:46 polymyxin B [From Polysporin] Allergy Intermediate ITCHY RASH Verified 03/13/22 16:46 latex Allergy Mild skin Verified 03/13/22 16:46 redness propranolol [From Inderal LA] AdvReac Severe HALLUCINATIONS, Verified 03/13/22 16:46 CONFUSION codeine AdvReac Intermediate NAUSEA AND Verified 03/13/22 16:46 VOMITING lisinopril AdvReac Intermediate cough Verified 03/13/22 16:46 meperidine [From Demerol] AdvReac Intermediate NAUSEA AND Verified 03/13/22 16:46 VOMITING morphine AdvReac Intermediate NAUSEA Verified 03/13/22 16:46 VOMITING oxycodone [From Percocet] AdvReac Intermediate NAUSEA-PT Verified 03/13/22 16:46 UNSURE Home Medications Medication Instructions Recorded Confirmed Type docusate sodium 100 mg capsule 100 mg PO QPM 12/22/19 03/13/22 History (Stool Softener) trazodone 50 mg tablet 25 mg PO HS #30 tabs 06/09/20 03/13/22 Rx albuterol sulfate 90 mcg/actuation 2 puff inhalation Q6H PRN 01/06/21 03/13/22 Rx aerosol inhaler (ProAir HFA) shortness of breath or wheezing #8 grams blood sugar diagnostic (OneTouch #100 ea 01/12/21 01/25/22 Rx Ultra Test strips) blood-glucose meter (OneTouch #1 ea 01/12/21 01/25/22 Rx Verio Meter) lancets (OneTouch UltraSoft #100 ea 01/12/21 01/25/22 Rx Lancets) gabapentin 100 mg capsule 100 mg PO HS 06/04/21 03/13/22 History polyethylene glycol 3350 17 17 g PO TID PRN Constipation #0 06/10/21 03/13/22 Rx gram/dose oral powder (Miralax) grams fluticasone propionate 110 1 puff inhalation BID PRN Wheezing 06/15/21 03/13/22 History mcg/actuation HFA aerosol inhaler (Flovent HFA) linaclotide 145 mcg capsule 145 mcg PO QAM #90 caps 01/15/22 03/13/22 Rx (Linzess) camphor-menthol 0.2 %-3.5 % 1 applic topical BID PRN Pain 01/25/22 03/13/22 History topical gel sennosides 8.6 mg tablet (Senokot) See Rx Instructions .Route .COMPLEX 01/25/22 03/13/22 History acetaminophen 500 mg tablet 1,000 mg PO DIRECTED PRN 03/13/22 03/13/22 History (Tylenol Extra Strength) PAIN/FEVER escitalopram oxalate 5 mg tablet 5 mg PO QAM 03/13/22 03/13/22 History hydralazine 25 mg tablet 50 mg PO TID 03/13/22 03/13/22 History metoprolol succinate 25 mg 25 mg PO QAM 03/13/22 03/13/22 History tablet,extended release 24 hr valsartan 160 mg tablet 160 mg PO BID 03/13/22 03/13/22 History Past Med/Surg History Medical History Actinic cheilitis Actinic keratosis Anxiety Asthma stable-LAST RESCUE INHALER USE 1 MONTH AGO Basal cell carcinoma Bladder prolapse Diabetes PCP has been monitoring. A1C has crept up to 6.8%, no medication NOW, just dietary modifications. History of basal cell carcinoma History of COVID-19 DX'D 11/2020 WHILE AT [facility] AFTER STROKE-HEADACHE, SINUS SYMPTOMS- RESOLVED History of melanoma History of squamous cell carcinoma Hypertension Left knee DJD Osteoarthritis SBO (small bowel obstruction) 05/2021- [facility] ADMISSION-NO SURGERY Stroke [id number] BOTH EYES-VISION REMAINS IMPAIRED-DOES NOT DRIVE, SHORT MEMORY IMPAIRMENT-NO ISSUES SINCE Visual loss Surgical History H/O cataract removal with insertion of prosthetic lens History of basal cell carcinoma (BCC) excision History of colonoscopy History of melanoma excision History of right knee joint replacement Right TKA: 09/21/14: SAB x1 attempt at L3/L4 + PNB at [facility] History of squamous cell carcinoma excision History of tonsillectomy History of total abdominal hysterectomy and bilateral salpingo-oophorectomy History of total knee replacement LEFT History of tubal ligation Nausea and vomiting after administration of anesthetic agent Status post right knee replacement Family History Father Prostate cancer Sister Family history of reaction to anesthesia PONV Other No family history of adverse response to anesthesia Denies family history of Ovarian cancer Diabetes Dyslipidemia Myocardial infarction Breast cancer COPD (chronic obstructive pulmonary disease) Colorectal cancer Social History Smoking Status: Never smoker Second Hand Exposure: No; Hx Alcohol Use: No Hx Substance Use: No Preferred Language: Welsh Communication Ability: Effective Hearing Ability: Normal Client Leader Required: No Beliefs That Will Affect Care: None marital status: Current Living Situation: Spouse Current Living Situation Comment: indep with ADLs lives with spouse, pt does not drive current occupational status: retired Feels Safe at Home: Yes Childhood Exposure to Second-Hand Smoke: Yes caffeine: Yes during the past year weight has: remained stable Dental Care, Regularly: Yes Seatbelt Use: always Sunscreen Use: Yes Assistive Devices: Cane Review of Systems 2 Review of Systems: As per HPI Physical Exam Physical Exam: General: Tired appearing 81-year old female who is alert, oriented, and appears in no acute distress. HEENT: NCAT. - Eyes - Sclera are white, anicteric, and without injection. - Mouth - MMM - Neck - supple, no appreciable JVD Cardiac: Normal rate and regular rhythm; S1 and S2 present with no murmurs, rubs, or gallops. Pulmonary: Good respiratory effort with symmetric expansion of the chest. No use of accessory muscles. Lungs were clear to auscultation bilaterally with no crackles or wheezes. Abdominal: Normoactive bowel sounds. Abdomen was soft, nondistended, and non- tender to palpation. Extremities: Upper and lower extremities are warm and well perfused. 1+ peripheral edema in the lower extremities bilaterally Psych: Well-developed, well-nourished, appropriately dressed for occasion. Behavior is cooperative and appropriate. Affect is WNL. Insight is appropriate. Results & Data Results & Data ([facility]) Vital Signs (Past 12 Hours) Vital Signs Temp Pulse Resp BP Pulse Ox O2 Del Method 03/13/22 12:43 36.6 C 75 18 171/83 H 98 Room Air Supervising Physician Co-Signing Physician Notes I personally saw and examined the patient. I verified all neri points and agree with resident physician Dr Moses Rodríguez, with the following exceptions and/or additions: 81-year-old female presents due to abnormal outpatient labs with sodium of 125. Recently started Lexapro 3 weeks ago. Recent admission for hyponatremia in January although the notes report she was on HCTZ at that time per external pharmacy list she has always been on losartan alone. Also recently changed from losartan to valsartan 1 week ago. O/E HS1+2, no murmurs, Chest CTAB, Abdo SNT A/P Hyponatremia - Urine osm pending. Urine sodium inappropriately high. Suspect SIADH. Agree with NaCL tabs as above. Hold Lexapro. Monitor BMP in AM. Resident Activity Tracking Resident Involvement: Resident Care Provided Care Provided: Adult Hospital Medicine
[2022-03-13] MEDS ORDERED: VALSARTAN 80 MG TAB PO SCH ×2 (17:15→21:00)
[2022-03-13] MEDS ORDERED: hydrALAZINE TAB 50 MG TAB PO STA (17:19)
[2022-03-13] MEDS ORDERED: VALSARTAN 80 MG TAB PO STA (17:20)
[2022-03-13 17:59] LABS: Appearance Urine Clear (Clear); Bilirubin Urine Negative (Negative); Blood Urine Negative (Negative); Color Urine Yellow; Glucose Urine UA Negative (Negative); Ketones Urine Trace (Negative); Leukocyte Esterase Urine Negative (Negative); Nitrite Urine Negative (Negative); Protein Urine Negative (Negative); Specific Gravity Urine 1.006 (1.000-1.030); Urobilinogen Urine Negative (Negative); pH Urine 7.5 (4.5-7.5)
[2022-03-13] MEDS ORDERED: GLUCAGON FOR INJ 1 MG VIAL SQ PRN (18:07)
[2022-03-13] MEDS ORDERED: GLUCOSE 10 TAB/TUBE PO PRN (18:07)
[2022-03-13] MEDS ORDERED: CARBOHYDRATES FOR HYPOGLYCEMIA PO PRN (18:07)
[2022-03-13] MEDS ORDERED: ALBUTEROL HFA 8 GM INHALER INH PRN (18:07)
[2022-03-13] MEDS ORDERED: SOD PHOSPHATE/SOD BIPHOSPHATE ENEMA 132 ML BTL PR PRN (18:07)
[2022-03-13] MEDS ORDERED: ACETAMINOPHEN 500 MG TAB PO PRN ×2 (18:07→18:49)
[2022-03-13] MEDS ORDERED: FLUTICASONE HFA 110MCG INHALER INH PRN (18:07)
[2022-03-13] MEDS ORDERED: GLUCOSE 40% GEL 15 GM TUBE PO PRN (18:07)
[2022-03-13] MEDS ORDERED: DEXTROSE 50% 50 ML SYRINGE IV PRN (18:07)
[2022-03-13] MEDS ORDERED: POLYETHYLENE (MIRALAX) 17 GM PACK PO PRN (18:07)
--- NOTE | 2022-03-13 18:10 | Emergency Department Note ---
History of Present Illness General Chief complaint: Abnormal Labs/Diagnostic Testing Stated complaint: ABNORMAL BLOOD WORK Time Seen by Provider: 03/13/22 15:10 History of Present Illness Provider complaint: Abnormal blood work 81-year-old female presents emergency department for abnormal blood work. She states that her PCP did blood work on her and showed her sodium was low. Patient reports she is been increasingly weak over the last month. She denies any falls. She denies any chest pain or difficulty breathing. She reports she is not eating well. Patient denies any seizures. She denies any numbness or tingling. Home Medications Medication Instructions Recorded Confirmed Type docusate sodium 100 mg capsule 100 mg PO QPM 12/22/19 03/13/22 History (Stool Softener) trazodone 50 mg tablet 25 mg PO HS #30 tabs 06/09/20 03/13/22 Rx albuterol sulfate 90 mcg/actuation 2 puff inhalation Q6H PRN 01/06/21 03/13/22 Rx aerosol inhaler (ProAir HFA) shortness of breath or wheezing #8 grams blood sugar diagnostic (OneTouch #100 ea 01/12/21 01/25/22 Rx Ultra Test strips) blood-glucose meter (OneTouch #1 ea 01/12/21 01/25/22 Rx Verio Meter) lancets (OneTouch UltraSoft #100 ea 01/12/21 01/25/22 Rx Lancets) gabapentin 100 mg capsule 100 mg PO HS 06/04/21 03/13/22 History polyethylene glycol 3350 17 17 g PO TID PRN Constipation #0 06/10/21 03/13/22 Rx gram/dose oral powder (Miralax) grams fluticasone propionate 110 1 puff inhalation BID PRN Wheezing 06/15/21 03/13/22 History mcg/actuation HFA aerosol inhaler (Flovent HFA) linaclotide 145 mcg capsule 145 mcg PO QAM #90 caps 01/15/22 03/13/22 Rx (Linzess) camphor-menthol 0.2 %-3.5 % 1 applic topical BID PRN Pain 01/25/22 03/13/22 History topical gel sennosides 8.6 mg tablet (Senokot) See Rx Instructions .Route .COMPLEX 01/25/22 03/13/22 History acetaminophen 500 mg tablet 1,000 mg PO DIRECTED PRN 03/13/22 03/13/22 History (Tylenol Extra Strength) PAIN/FEVER escitalopram oxalate 5 mg tablet 5 mg PO QAM 03/13/22 03/13/22 History hydralazine 25 mg tablet 50 mg PO TID 03/13/22 03/13/22 History metoprolol succinate 25 mg 25 mg PO QAM 03/13/22 03/13/22 History tablet,extended release 24 hr valsartan 160 mg tablet 160 mg PO BID 03/13/22 03/13/22 History Allergies Allergy/AdvReac Type Severity Reaction Status Date / Time adhesive Allergy Intermediate rash, Verified 03/13/22 16:46 redness,ITCHY bacitracin [From Polysporin] Allergy Intermediate ITCHY RASH Verified 03/13/22 16:46 polymyxin B [From Polysporin] Allergy Intermediate ITCHY RASH Verified 03/13/22 16:46 latex Allergy Mild skin Verified 03/13/22 16:46 redness propranolol [From Inderal LA] AdvReac Severe HALLUCINATIONS, Verified 03/13/22 16:46 CONFUSION codeine AdvReac Intermediate NAUSEA AND Verified 03/13/22 16:46 VOMITING lisinopril AdvReac Intermediate cough Verified 03/13/22 16:46 meperidine [From Demerol] AdvReac Intermediate NAUSEA AND Verified 03/13/22 16:46 VOMITING morphine AdvReac Intermediate NAUSEA Verified 03/13/22 16:46 VOMITING oxycodone [From Percocet] AdvReac Intermediate NAUSEA-PT Verified 03/13/22 16:46 UNSURE Past Med/Surg History Medical History Actinic cheilitis Actinic keratosis Anxiety Asthma stable-LAST RESCUE INHALER USE 1 MONTH AGO Basal cell carcinoma Bladder prolapse Diabetes PCP has been monitoring. A1C has crept up to 6.8%, no medication NOW, just dietary modifications. History of basal cell carcinoma History of COVID-19 DX'D 11/2020 WHILE AT [facility] AFTER STROKE-HEADACHE, SINUS SYMPTOMS- RESOLVED History of melanoma History of squamous cell carcinoma Hypertension Left knee DJD Osteoarthritis SBO (small bowel obstruction) 05/2021- [facility] ADMISSION-NO SURGERY Stroke [id number] BOTH EYES-VISION REMAINS IMPAIRED-DOES NOT DRIVE, SHORT MEMORY IMPAIRMENT-NO ISSUES SINCE Visual loss Surgical History H/O cataract removal with insertion of prosthetic lens History of basal cell carcinoma (BCC) excision History of colonoscopy History of melanoma excision History of right knee joint replacement Right TKA: 09/21/14: SAB x1 attempt at L3/L4 + PNB at [facility] History of squamous cell carcinoma excision History of tonsillectomy History of total abdominal hysterectomy and bilateral salpingo-oophorectomy History of total knee replacement LEFT History of tubal ligation Nausea and vomiting after administration of anesthetic agent Status post right knee replacement Family History Father Prostate cancer Sister Family history of reaction to anesthesia PONV Other No family history of adverse response to anesthesia Denies family history of Ovarian cancer Diabetes Dyslipidemia Myocardial infarction Breast cancer COPD (chronic obstructive pulmonary disease) Colorectal cancer Social History Smoking Status: Never smoker Second Hand Exposure: No; Hx Alcohol Use: No Hx Substance Use: No Preferred Language: Thai Communication Ability: Effective Hearing Ability: Normal Bank Analyst Required: No Beliefs That Will Affect Care: None marital status: Current Living Situation: Spouse Current Living Situation Comment: indep with ADLs lives with spouse, pt does not drive current occupational status: retired Feels Safe at Home: Yes Childhood Exposure to Second-Hand Smoke: Yes caffeine: Yes during the past year weight has: remained stable Dental Care, Regularly: Yes Seatbelt Use: always Sunscreen Use: Yes Assistive Devices: Cane and Walker Physical Exam Vital Signs Vital Signs - 24 hr 03/13/22 12:43 Temperature 36.6 C Temperature Source Temporal Artery Scan Pulse Rate 75 Respiratory Rate 18 Blood Pressure 171/83 H Blood Pressure Mean 112 Blood Pressure Position Sitting Pulse Oximetry 98 Oxygen Delivery Method Room Air Sepsis Recent Fever Within 48 Hours No Sepsis New/Unexplained Change in Mental Status N/A Sepsis Action Taken by Nursing No Action Required Physical Exam GENERAL: He is oriented to person, place, and time. He appears well-developed and well-nourished. HENT: Exam performed. - Head: Normocephalic and atraumatic. EYES: Conjunctivae and EOM are normal. Right eye exhibits no discharge. Left eye exhibits no discharge. No scleral icterus. NECK: Normal range of motion. Neck supple. No JVD present. CV: Normal rate, regular rhythm, normal heart sounds and intact distal pulses. There is no peripheral edema. Palpable radial pulses bue. PULM/CHEST: Effort normal and breath sounds normal. No respiratory distress. No stridor. He has no wheezes. He has no rales. ABD: The abdomen is soft. There is no tenderness. NEURO: Motor and sensation grossly intact. SKIN: Skin is warm and dry. He is not diaphoretic. PSYCH: He has a normal mood and affect. Behavior is normal. Judgment and thought content normal. Course Course 1510: The patient was evaluated in room C7. A complete history and physical exam was performed Administered Medications Discontinued Medications Hydralazine HCl (Hydralazine Tab 50 Mg Tab) 50 mg PO NOW STA Stop: 03/13/22 17:20 Last Admin: 03/13/22 17:30 Dose: 50 mg Documented By: ELLIOTT Sodium Chloride (Nss) 500 mls @ 125 mls/hr IV .Q4H LICO Stop: 04/12/22 15:14 Last Admin: 03/13/22 15:22 Dose: 125 mls/hr Documented By: ELLIOTT Valsartan (Valsartan 80 Mg Tab) 160 mg PO NOW STA Stop: 03/13/22 17:21 Last Admin: 03/13/22 17:30 Dose: 160 mg Documented By: [facility] Medical Decision Making Laboratory Data Attestation: I reviewed the patient's lab results. 03/13/22 13:30 03/13/22 13:30 Lab Results 03/13/22 03/13/22 03/13/22 Range/Units 13:30 13:30 15:25 WBC 3.28 L (4.8-10.8) K/ul RBC 3.83 L (4.20-5.40) M/uL Hgb 12.3 (12.0-16.0) g/dl Hct 34.3 L (37.0-47.0) % MCV 89.6 (80.0-100.0) fL MCH 32.1 (25.0-34.0) pg MCHC 35.9 (32.0-36.0) g/dL RDW Std Deviation 42.9 (36.4-46.3) fL RDW Coeff of Belkis 13.1 (11.5-14.5) % Plt Count 355 (130-400) K/uL MPV 8.4 L (9.4-12.4) fL Immature Gran % (Auto) 0.3 % Neut % (Auto) 59.8 % Lymph % (Auto) 26.2 % [place] % (Auto) 11.9 % Eos % (Auto) 0.9 % Baso % (Auto) 0.9 % Neut # (Auto) 1.96 (1.40-6.50) K/uL Lymph # (Auto) 0.86 L (1.2-3.4) K/uL [place] # (Auto) 0.39 (0.11-0.59) K/uL Eos # (Auto) 0.03 (0-0.50) K/uL Baso # (Auto) 0.03 (0-0.2) K/uL Immature Gran # (Auto) 0.01 (0.01-0.20) K/uL Sodium 125 L (136-145) mmol/L Potassium 4.2 (3.5-5.1) mmol/L Chloride 92 L (98-107) mmol/L Carbon Dioxide 28 (21-32) mmol/L Anion Gap 5 (3-11) BUN 9 (6-23) mg/dl Creatinine 0.55 L (0.6-1.2) mg/dl Est Cr Clr Drug Dosing 58.7 ml/min Est GFR ( Amer) 100.5 ml/min Est GFR (Non-Af Amer) 86.7 ml/min BUN/Creatinine Ratio 16.4 (10-20) Glucose 126 H (70-99(Fasting)) mg/dl Calcium 9.3 (8.5-10.1) mg/dl Total Bilirubin 0.6 (0.2-1.0) mg/dl AST 18 (13-39) U/L ALT 16 (7-52) U/L Alkaline Phosphatase 110 H (34-104) U/L Total Protein 7.0 (6.0-8.3) gm/dl Albumin 4.3 (3.4-5.0) gm/dl Globulin 2.7 (2.5-4.0) gm/dl Albumin/Globulin Ratio 1.6 (0.9-2) SARS-CoV-2, RNA, NAAT NEGATIVE (NEGATIVE) ECG Data Attestation: I personally reviewed and interpreted this ECG as follows: Indication: + weakness Rate (beats per minute): 74 Rhythm: + normal sinus ECG Intervals/blocks: + Normal QRS, + Normal MO and + Normal QT-c ECG ST segments: + Normal ST segments MDM Narrative Cardiac monitoring: An order was placed for continuous cardiac monitoring. The monitor shows a rate of 70 with sinus rhythm Patient was seen during a time of extreme volume and extreme acuity in the emergency department. Nursing triage protocols were initiated and labs were drawn by protocol in the triage area. Labs show sodium of 125. [facility]. Impression & Plan Acute hyponatremia Discharge Plan Visit Data Chief Complaint: Abnormal Labs/Diagnostic Testing Stated Complaint: ABNORMAL BLOOD WORK ED Provider: Jesus Christensen Discharge Problem: Acute hyponatremia Patient Disposition: Admitted As Inpatient
[2022-03-13 18:18] LABS: Creatinine Urine Random 14.1 mg/dl
[2022-03-13] MEDS ORDERED: SODIUM CHLORIDE 0.9% 1000ML 1,000 ML IV SCH (18:30)
[2022-03-13 18:58] LABS: BUN Creatinine Ratio 15.9 (10-20); Creatinine Clr Calc Pharmacy 73.4 ml/min; Est GFR (African American) 108.2 ml/min; Est GFR (Non-African American) 93.3 ml/min; Potassium 3.7 mmol/L (3.5-5.1)
[2022-03-13] MEDS: INSULIN ASPART PER UNIT SC SCH ×2 (19:29→21:22)
[2022-03-13] MEDS ORDERED: DOCUSATE SODIUM 100 MG CAP PO SCH (21:00)
[2022-03-13] MEDS ORDERED: GABAPENTIN 100 MG CAP PO SCH (21:00)
[2022-03-13] MEDS ORDERED: SENNA 8.6 MG TAB PO SCH (21:00)
[2022-03-13] MEDS ORDERED: traZODone HCL 50 MG TAB PO SCH (21:00)
[2022-03-13] MEDS ORDERED: SODIUM CHLORIDE 1 GM TABLET PO SCH (21:00)
[2022-03-13] MEDS ORDERED: hydrALAZINE TAB 50 MG TAB PO SCH (21:00)
[2022-03-13] MEDS: SODIUM CHLORIDE 1 GM TABLET PO SCH (21:03)
[2022-03-13 23:12] LABS: Calcium 8.8 mg/dl (8.5-10.1); Creatinine Clr Calc Pharmacy 75.1 ml/min; Est GFR (Non-African American) 94.1 ml/min; Potassium 3.6 mmol/L (3.5-5.1)
[2022-03-14] MEDS ORDERED: MELATONIN 3 MG TAB PO PRN (01:59)
--- NOTE | 2022-03-14 02:10 | Billing Data ---
Date of Service March 13, 2022 Coding Level of Care Code 61573 INT INP/OBS CARE
[2022-03-14 03:45] LABS: Basophils % (auto) 1.3 %; Eosinophils % (auto) 2.3 %; Hemoglobin 11.5 g/dl (12.0-16.0); Immature Granulocytes % (auto) 0.3 %; Lymphocytes % (auto) 23.5 %; Mean Corpuscular Hemoglobin 32.2 pg (25.0-34.0); Mean Corpuscular Hgb Conc 35.9 g/dL (32.0-36.0); Mean Corpuscular Volume 89.6 fL (80.0-100.0); Mean Platelet Volume 8.5 fL (9.4-12.4); Monocytes % (auto) 14.9 %; Neutrophils % (auto) 57.7 %; Platelet Count 324 K/uL (130-400); RDW Standard Deviation 42.9 fL (36.4-46.3); Red Blood Count 3.57 M/uL (4.20-5.40); White Blood Count 3.95 K/ul (4.8-10.8)
[2022-03-14 03:46] LABS: Basophils # (auto) 0.05 K/uL (0-0.2); Eosinophils # (auto) 0.09 K/uL (0-0.50); Immature Granulocytes # (auto) 0.01 K/uL (0.01-0.20); Lymphocytes # (auto) 0.93 K/uL (1.2-3.4); Monocytes # (auto) 0.59 K/uL (0.11-0.59); Neutrophils # (auto) 2.28 K/uL (1.40-6.50)
[2022-03-14 03:50] LABS: BUN Creatinine Ratio 14.6 (10-20); Calcium 8.9 mg/dl (8.5-10.1); Creatinine Clr Calc Pharmacy 78.8 ml/min; Est GFR (African American) 110.7 ml/min; Est GFR (Non-African American) 95.5 ml/min; Potassium 3.6 mmol/L (3.5-5.1)
[2022-03-14 04:32] LABS: RBC Morphology Unremarkable
[2022-03-14 06:28] LABS: Estimated Average Glucose 140 mg/dl; Hemoglobin A1C 6.5 % (4.5-5.6)
--- NOTE | 2022-03-14 07:15 | Hospitalist Progress Note ---
Date of Service March 14, 2022 Assessment & Plan (1) Hyponatremia: (2) HTN (hypertension): (3) Diabetes mellitus: (4) Chronic constipation: (5) Leukopenia: Plan Britta Green is an 81-year-old female with history of prior hyponatremia thought to be secondary to HCTZ (d/c'd in 01/2022), HTN, HLD, Diabetes (not on medication, diet-controlled), anxiety, asthma, h/o CVA, h/o melanoma, h/o basal cell carcinoma who presented to the ED at the recommendation of her PCP for hyponatremia; she reports feeling weak, but otherwise without symptoms. Subacute Hypotonic Hyponatremia Patient reporting several weeks worth of increasing weakness and poor p.o. 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 She has h/o CVA and is on SSRI. Her persistent leukopenia is also noted, though unclear whether or not an underlying hematologic process is driving this. s/p 500cc of NSS in the ED; hold on further IVF for right now NaCl 1000mg t.i.d. + Fluid restriction <2L/day Recheck BMP q4h Hold escitalopram Strict I&Os, daily weights Pending response, may wish to consider AM aldosterone level to further characterize if renal losses may also be contributory HTN Status post discontinuation of HCTZ in January 2022 Continue valsartan, hydralazine, metoprolol T2DM Last 1 A1c at 6.5% in 05/2021 Initiate SSI w/ ACHS checks, add basal and tighten control as needed Recheck A1c in a.m. Chronic Constipation with History of Numerous Small Bowel Obstructions Continue home Linzess, docusate, MiraLAX, Senokot Low fiber diet as requested Leukopenia with Lymphopenia Review of previous labs demonstrates persistent mild leukopenia since January 2022 Differential revealing relative lymphopenia 0.8 on admission Add peripheral smear to a.m. labs (in setting of recurrent hyponatremia work- up) Monitor CBCd Chronic Problems Peripheral neuropathy: Continue gabapentin Asthma: Stable. No acute needs. Continue fluticasone, albuterol Insomnia: Continue trazodone Code: Full Dispo: LYNN Diet: Heart healthy, low fiber PPx: Lovenox Admission and Anticipated Discharge Date Admission Date: March 13, 2022 Review of Systems Review of Systems: As per HPI Physical Exam Physical Exam: General: Tired appearing 81-year old female who is alert, oriented, and appears in no acute distress. HEENT: NCAT. - Eyes - Sclera are white, anicteric, and without injection. - Mouth - MMM - Neck - supple, no appreciable JVD Cardiac: Normal rate and regular rhythm; S1 and S2 present with no murmurs, rubs, or gallops. Pulmonary: Good respiratory effort with symmetric expansion of the chest. No use of accessory muscles. Lungs were clear to auscultation bilaterally with no crackles or wheezes. Abdominal: Normoactive bowel sounds. Abdomen was soft, nondistended, and non-te nder to palpation. Extremities: Upper and lower extremities are warm and well perfused. 1+ peripheral edema in the lower extremities bilaterally Psych: Well-developed, well-nourished, appropriately dressed for occasion. Behavior is cooperative and appropriate. Affect is WNL. Insight is appropriate. Results & Data Results & Data ([facility]) Vital Signs (Past 12 Hours) Vital Signs Pulse Pulse Resp BP BP Pulse Ox O2 Del Method 03/14/22 06:25 63 20 134/55 L 96 Room Air 03/14/22 00:01 74 18 152/77 H 95 Room Air 03/13/22 23:00 72 18 153/87 H 95 Room Air 03/13/22 22:48 76 18 151/78 H 99 Room Air 03/13/22 21:50 73 12 95 03/13/22 21:40 74 10 L 96 03/13/22 21:30 73 12 97 03/13/22 21:20 76 19 97 03/13/22 21:10 78 17 90 03/13/22 21:00 75 13 91 03/13/22 21:00 163/76 H 03/13/22 20:50 76 15 93 03/13/22 20:40 80 21 93 03/13/22 20:30 76 20 94 03/13/22 20:20 76 16 94 03/13/22 20:10 75 15 95 03/13/22 20:00 76 13 96 03/13/22 20:00 165/76 H 03/13/22 19:50 77 21 97 03/13/22 19:40 76 24 97 03/13/22 19:39 78 22 03/13/22 19:39 161/91 H 03/13/22 19:20 82 27 H 96
[2022-03-14] MEDS: SODIUM CHLORIDE 1 GM TABLET PO SCH (08:23)
[2022-03-14 08:24] LABS: BUN Creatinine Ratio 10.2 (10-20); Calcium 9.2 mg/dl (8.5-10.1); Creatinine Clr Calc Pharmacy 54.7 ml/min; Est GFR (African American) 98.2 ml/min; Est GFR (Non-African American) 84.8 ml/min; Potassium 3.7 mmol/L (3.5-5.1)
[2022-03-14] MEDS ORDERED: SENNA 8.6 MG TAB PO SCH (09:00)
[2022-03-14] MEDS ORDERED: VALSARTAN 80 MG TAB PO SCH (09:00)
[2022-03-14] MEDS ORDERED: hydrALAZINE TAB 50 MG TAB PO SCH (09:00)
[2022-03-14] MEDS ORDERED: METOPROLOL SUCC 25MG EXT REL TAB PO SCH (09:00)
[2022-03-14] MEDS ORDERED: LINACLOTIDE 145 MCG CAPSULE PO SCH (09:00)
[2022-03-14] MEDS ORDERED: ENOXAPARIN INJ 40 MG/0.4 ML SYR SQ SCH (09:00)
[2022-03-14] MEDS ORDERED: ESCITALOPRAM OXALATE 10 MG TAB PO SCH (09:00)
[2022-03-14] MEDS: INSULIN ASPART PER UNIT SC SCH ×2 (10:04→13:14)
--- NOTE | 2022-03-14 13:33 | Communication Note ---
Date of Service: March 14, 2022 By CMS guidelines, a determination that the admission or continued stay is not medically necessary has been made by a member of the UR committee and a ph ysician for this hospital stay, therefore a Code 44 will be completed and the Inpatient admission will be changed to outpatient.
--- NOTE | 2022-03-14 18:36 | Discharge Summary ---
Date of Service March 14, 2022 Admission HPI Per Admitting Provider Brtita Green is an 81-year-old female with PMH of HTN, HLD, Diabetes (not on medication, diet-controlled), anxiety, asthma, h/o CVA, h/o melanoma, h/o basal cell carcinoma who presented due to feeling weak. She states that over the past month or so she has been feeling progressively more weak. She feels like she does not have energy that she used to do activities she wants. She takes care of her , and this has been more difficult. She says that her appetite has actually been quite poor, but really tries to do low fiber type stuff like yogurts, putting, occasional toast, banana; she also endorses soups and potatoes. Not usually much meat. 3-4x 12oz glasses of water a day on average. She denies any significant worsening peripheral edema. Denies progressive enlargement in her belly. Denies PND orthopnea. Denies dyspnea on exertion. She has been taking her medications as prescribed. She denies any regular alcohol use. Of note, patient was recently hospitalized in January 2022 for hypertensive urgency and hyponatremia (124 on admission), but had previously been normonatremic at 135 in November 2021; thought at the time was that it was likely secondary to hydrochlorothiazide, which was subsequently discontinued. Her sodium improved to 131 prior to discharge. She has been off hydrochlorothiazide since that time. In the ED, patient was found to have an admission weight of 55.2 kg (from 56.9 on 01/29) with heart rate 75, blood pressure 171/83. Labs revealed leukopenia 3.2 (also seen on January 2022 labs) with lymphopenia. Sodium 125, chloride 92, BUN 9/creatinine 0.55. Blood sugar 126. Added serum osmolality, urine sodium/creatinine/osmolalitypending at time of admission. She was given 500 cc of sodium chloride. Principal Diagnosis Weakness due to hyponatremia. 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 Discharge Exam In general she is awake and alert pleasant no distress. HEENT normocephalic atraumatic mucous membranes moist. Breathing unlabored no accessory muscle use good effort. Skin shows no rashes no pallor or icterus. Neuro without focal deficits Discharge Data Allergies Allergy/AdvReac Type Severity Reaction Status Date / Time adhesive Allergy Intermediate rash, Verified 03/13/22 16:46 redness,ITCHY bacitracin [From Polysporin] Allergy Intermediate ITCHY RASH Verified 03/13/22 16:46 polymyxin B [From Polysporin] Allergy Intermediate ITCHY RASH Verified 03/13/22 16:46 latex Allergy Mild skin Verified 03/13/22 16:46 redness propranolol [From Inderal LA] AdvReac Severe HALLUCINATIONS, Verified 03/13/22 16:46 CONFUSION codeine AdvReac Intermediate NAUSEA AND Verified 03/13/22 16:46 VOMITING lisinopril AdvReac Intermediate cough Verified 03/13/22 16:46 meperidine [From Demerol] AdvReac Intermediate NAUSEA AND Verified 03/13/22 16:46 VOMITING morphine AdvReac Intermediate NAUSEA Verified 03/13/22 16:46 VOMITING oxycodone [From Percocet] AdvReac Intermediate NAUSEA-PT Verified 03/13/22 16:46 UNSURE Consultations 03/13/22 15:47 ED Decision to Admit Stat Hospital Course (1) Hyponatremia: Britta Green is an 81-year-old female with history of prior hyponatremia thought to be secondary to HCTZ (d/c'd in 01/2022), HTN, HLD, Diabetes (not on medication, diet-controlled), anxiety, asthma, h/o CVA, h/o melanoma, h/o basal cell carcinoma who presented to the ED at the recommendation of her PCP for hyponatremia; she reports feeling weak, but otherwise without symptoms. Subacute Hypotonic Hyponatremia Patient reporting several weeks worth of increasing weakness and poor p.o. intake Work-up as follows: Na 125 / Cl 92 / BSG 126 on admission sOsm at 260 (low) ; uOsm at 241 Thor 87, UCr 14.1 (FENa 2.7%) Volume status on exam: overall euvolemic > hypovolemic Weight 55.2 on admission (from 56.9 kg on 01/29) RX reviewed: Lexapro > trazodone associated with SIADH Check TSH and cortisol in the AM TSH and random cortisol reassuring ----> Most likely SIADH and poor solute intake. Already naturally does a degree of fluid restriction. Discussed liberalizing the salt in her diet. For now sodium chloride tabs 1 g twice daily, but as she liberalizes her diet, hopefully we can eliminate this. Basic metabolic panel again Saturday, PCP follow-up next week, close follow-up with basic metabolic panel thereafter. (2) HTN (hypertension): HTN Pressures reasonable, continue home meds (3) Diabetes mellitus: T2DM A1c once again 6.5% (4) Chronic constipation: Chronic Constipation with History of Numerous Small Bowel Obstructions Continue home Linzess, docusate, MiraLAX, Senokot (5) Leukopenia: Leukopenia with Lymphopenia Review of previous labs demonstrates persistent mild leukopenia since January 2022 Differential revealing relative lymphopenia 0.8 on admission Peripheral smear most consistent with anemia of chronic disease and lymphopenia due to leukopenia -Outpatient follow-up Plan Would like to go home, appears stable for home. Plan as above. Total Time Total Time Spent Total Time Spent (In Minutes): Less than 30 Discharge Plan Discharge Items Patient Disposition: Home - Self-Care Reason For Visit: HYPONATREMIA Discharge Diagnosis: Hyponatremia Activity: Per Instructions section Non-emergency contact: Primary Care Provider Call non-emergency contact if: you have any medication questions and your symptoms worsen Follow-up/Referrals: Kailey Green MD [Primary Care Provider] - (please schedule follow up in 2-3 days) Diet: Carb Consistent or DM2 Addtl Attending Provider Instructions: You were admitted to [facility] from 03/13 - 03/14 for weakness due to low sodium level. Your low sodium level of 125 was most likely due to your decreased appetite and food/water intake. You were given both IV fluids and salt tablets, and your sodium level improved to 130, which is great! You will be discharged in improved condition on 03/14. Please continue to take salt 1 gram tablets two times per day. Please also try to work on eating and drinking well, specifically three meals per day. Please continue to take your other medications as scheduled. Please follow up with your PCP within 2-3 days. We recommend that you get repeat blood work at that time to ensure that your sodium level is stable. Pending Studies at Discharge: No Stand-Alone Forms: [facility], Smoking Cessation Medications and DC Order Prescriptions: New sodium chloride 1,000 mg tablet,soluble 1,000 mg PO BID Qty: 60 0RF Continued trazodone 50 mg tablet 25 mg PO HS Qty: 30 5RF Hold Instructions: not taking albuterol sulfate [ProAir HFA] 90 mcg/actuation HFA aerosol inhaler 2 puff INH Q6H PRN (Reason: shortness of breath or wheezing) Qty: 8 3RF (DME) OneTouch Ultra Test Strip See Rx Instructions .Route Qty: 100 5RF Rx Instructions: Test blood sugar once daily Dx:E11.9 (DME) blood-glucose meter [OneTouch Verio Meter] Misc See Rx Instructions .Route Qty: 1 0RF Rx Instructions: Test blood sugar once daily DX: E11.9 (DME) lancets [OneTouch UltraSoft Lancets] Misc See Rx Instructions .Route Qty: 100 5RF Rx Instructions: Test 1 x daily. Dx:E11.9 Flovent HFA 110 mcg/actuation HFA aerosol inhaler 1 puff inhalation BID PRN (Reason: Wheezing) Linzess 145 mcg capsule 145 mcg PO QAM Qty: 90 3RF docusate sodium [Stool Softener] 100 mg Capsule 100 mg PO QPM gabapentin 100 mg capsule 100 mg PO HS polyethylene glycol 3350 [Miralax] 17 gram/dose Powder 17 g PO TID PRN (Reason: Constipation) Qty: 0 0RF sennosides [Senokot] 8.6 mg tablet See Rx Instructions .ROUTE .COMPLEX Rx Instructions: 8.6 mg orally; TAKES 8.6 MG QAM, THEN 17.2 MG AT HS. camphor-menthol 0.2-3.5 % Gel 1 applic TOPICAL BID PRN (Reason: Pain) Rx Instructions: rub in gently and completely hydralazine 25 mg tablet 50 mg PO TID metoprolol succinate 25 mg tablet extended release 24 hr 25 mg PO QAM valsartan 160 mg tablet 160 mg PO BID escitalopram oxalate 5 mg tablet 5 mg PO QAM acetaminophen [Tylenol Extra Strength] 500 mg Tablet 1,000 mg PO DIRECTED PRN (Reason: PAIN/FEVER) Discharge Orders: Discharge Order (Routine); Ordered 03/14/22 Ordered By: Ian Robertson/Other Patient Handouts: Controlling High Blood Pressure, Exercise for a Healthier Heart, High Blood Pressure Risk Factors, Hypertension Dc, ED Hyponatremia, Type 2 Diabetes Admission Data Admit Date/Time: 03/13/22 16:15 Attending Provider: Moses Choe Admit Provider: Moses Rodríguez Primary Care Provider: Kailey Green Other Providers: Osmar Garnica Other Interventions: Discharge Summary Assessment (RN) Last Done: 03/14/22 13:47 Coding Level of Care Code HOSP INP/OBS DISCH 30 MIN/LESS Diagnoses Hyponatremia E87.1 HTN (hypertension) I10 Diabetes mellitus E11.9 Chronic constipation K59.09 Leukopenia D72.819
== END 2022-03-14 14:00 | disposition home or self-care (01) ==
LOC: ED 12:23 → SUATTDRO 16:15 → INTOOBSV 16:15 → EDINP 16:15